=== PATIENT | male | born 1975 | race Hispanic/Latino ===

== ENCOUNTER 2016-12-16 15:07 | Emergency (ER) | payer MEDICAID, OTHER ==
[2016-12-16 15:11] VITALS: BMI 23.6
--- NOTE | 2016-12-16 15:26 | ED PDOC ---
Arrival/HPI - General Chief Complaint: Psychiatric Evaluation Time Seen by Provider: 12/16/16 15:17 Historian: Patient - History of Present Illness Narrative History of Present Illness (Text): 12/16/16 15:24 41yo male BIBA for psychiatric evaluation. Per the EMS pt told the Police that he is suicidal. However in ED patient denies SI. States he have a lot to live for and don't want to kill himself. he also denies HI. Denies any somatic complaint. Past Medical History - Provider Review Nursing Documentation Reviewed: Yes - Past History Past History: No Previous - Infectious Disease Hx of Infectious Diseases: None - Tetanus Immunization Tetanus Immunization: Unknown - Past Medical History Past Medical History: No Previous - Cardiac Hx Cardiac Disorders: (Pt denies any medical or surgical history) - Pulmonary Hx Respiratory Disorders: No (SMOKES CIGARETTES 1/2 PPD X 27 YRS) - Neurological Hx Neurological Disorder: No - HEENT Hx HEENT Disorder: No - Renal Hx Renal Disorder: No - Endocrine/Metabolic Hx Endocrine Disorders: Yes Hx Diabetes Mellitus Type 2: Yes - Hematological/Oncological Hx Blood Disorders: No - Integumentary Hx Dermatological Disorder: No (TATTOO TO LEFT LEG.) - Musculoskeletal/Rheumatological Hx Musculoskeletal Disorders: Yes Hx Falls: Yes - Gastrointestinal Hx Gastrointestinal Disorders: Yes Hx Gastritis: Yes - Genitourinary/Gynecological Hx Genitourinary Disorders: No - Psychiatric Hx Psychophysiologic Disorder: Yes (ETOH ABUSE.DRINKS DAILY BEERS,COCAINE ABUSE- SNIFFS, SMOKES 1/2 PPD X 27 YRS) Hx Depression: No Hx Emotional Abuse: No Hx Physical Abuse: No Hx Substance Use: Yes - Past Surgical History Past Surgical History: No Previous - Anesthesia Hx Anesthesia: No - Suicidal Assessment Feels Threatened In Home Enviroment: No Family/Social History - Physician Review Nursing Documentation Reviewed: Yes Family/Social History: Unknown Family HX Smoking Status: Current Some Days Smoker Hx Alcohol Use: Yes Frequency of alcohol use: Daily Hx Substance Use: Yes Substance used: heroin Hx Substance Use Treatment: No Allergies/Home Meds Allergies/Adverse Reactions: Allergies shellfish derived Allergy (Verified 12/16/16 15:11) ANAPHYLAXIS Home Medications: Home Meds Medication Instructions Recorded Confirmed No Known Home Med 12/16/16 12/16/16 Review of Systems - Physician Review All systems were reviewed & negative as marked: Yes - Review of Systems Constitutional: Normal Eyes: Normal ENT: Normal Respiratory: Normal Cardiovascular: Normal Gastrointestinal: Normal Genitourinary Male: Normal Musculoskeletal: Normal Skin: Normal Neurological: Normal Endocrine: Normal Hemo/Lymphatic: Normal Psychiatric: Suicidal Ideation Physical Exam Vital Signs Reviewed: Yes Vital Signs Temp Pulse Resp BP Pulse Ox 12/17/16 11:30 98 F 88 18 139/88 99 12/17/16 10:16 80 16 140/91 H 98 12/17/16 07:46 98 F 78 18 144/90 98 12/17/16 02:00 98.9 F 89 18 135/70 97 12/16/16 21:25 98.6 F 87 18 137/87 99 12/16/16 15:18 97.7 F 83 18 108/75 99 Temperature: Afebrile Blood Pressure: Normal Pulse: Regular Respiratory Rate: Normal Appearance: Positive for: Well-Appearing, Non-Toxic, Comfortable Pain Distress: None Mental Status: Positive for: Alert and Oriented X 3 - Systems Exam Head: Present: Atraumatic, Normocephalic Pupils: Present: PERRL Extroacular Muscles: Present: EOMI Conjunctiva: Present: Normal Mouth: Present: Moist Mucous Membranes Neck: Present: Normal Range of Motion Respiratory/Chest: Present: Clear to Auscultation, Good Air Exchange. No: Respiratory Distress, Accessory Muscle Use Cardiovascular: Present: Regular Rate and Rhythm, Normal S1, S2. No: Murmurs Abdomen: Present: Normal Bowel Sounds. No: Tenderness, Distention, Peritoneal Signs Back: Present: Normal Inspection Upper Extremity: Present: Normal Inspection. No: Cyanosis, Edema Lower Extremity: Present: Normal Inspection. No: Edema Neurological: Present: GCS=15, CN II-XII Intact, Speech Normal Skin: Present: Warm, Dry, Normal Color. No: Rashes Psychiatric: Present: Alert, Oriented x 3, Normal Insight, Normal Concentration Medical Decision Making ED Course and Treatment: 12/16/16 18:10 PT in ED for stated history. He was seen in ED by PES screener Tawanna. She states she spoke with pt's father, but patient will be re evaluated by another PES screener secondary to his alcohol level. Lab was reviewed and alcohol was 382. BS was 482. On further questioning pt notes history of type 2 Diabetes. States he was on Metformin, but have not taken it for days now. States he ran out and unable to afford the prescription. He was given insulin in ED. Will check FS. Repeat FS at 2225 was 141 Alcohol level was 382 He was medically cleared for psych evaluation. Was seen in ED by PES screener Emily. She was pt, states she DC with Dr. Alvarez and pt will be screened by [facility] screener. 12/17/16 01:34 Pt sleeping comfortably in ED. He is pending [facility] evaluation. Case was endorsed to Dr. Larson to f/u and dispo. - Lab Interpretations Lab Results: 12/16/16 15:50 12/16/16 15:50 Lab Results 12/17/16 07:27: POC Glucose (mg/dL) 182 H 12/16/16 22:27: POC Glucose (mg/dL) 141 H 12/16/16 18:51: POC Glucose (mg/dL) 232 H 12/16/16 15:50: Alcohol, Quantitative 382 H* 12/16/16 15:50: Salicylates < 1 L, Acetaminophen < 10.0 L 12/16/16 15:50: Urine Opiates Screen Negative, Urine Methadone Screen Negative, Ur Barbiturates Screen Negative, Ur Phencyclidine Scrn Negative, Ur Amphetamines Screen Negative, U Benzodiazepines Scrn Negative, U Oth Cocaine Metabols Negative, U Cannabinoids Screen Negative 12/16/16 15:50: Sodium 140, Potassium 3.7, Chloride 101, Carbon Dioxide 21, Anion Gap 22 H, BUN 13, Creatinine 0.8, Est GFR ( Amer) > 60, Est GFR ( Non-Af Amer) > 60, Random Glucose 481 H* D, Calcium 9.3, Total Bilirubin 0.5, AST 102 H, ALT 88 H, Alkaline Phosphatase 88, Total Protein 7.8, Albumin 4.6, Globulin 3.2, Albumin/Globulin Ratio 1.4 12/16/16 15:50: Urine Color Yellow, Urine Appearance Clear, Urine pH 6.5, Ur Specific [place] <= 1.005, Urine Protein Negative, Urine Glucose (UA) >=1000, Urine Ketones Negative, Urine Blood Negative, Urine Nitrate Negative, Urine Bilirubin Negative, Urine Urobilinogen 0.2, Ur Leukocyte Esterase Negative 12/16/16 15:50: WBC 7.7, RBC 4.78, Hgb 16.1, Hct 44.6, MCV 93.3, MCH 33.7, MCHC 36.1, RDW 12.2, Plt Count 216, MPV 10.2, Gran % 47.8 L, Lymph % (Auto) 45.6 H, [place] % (Auto) 4.2, Eos % (Auto) 1.2 L, Baso % (Auto) 1.2, Gran # 3.69, Lymph # 3.5 H, [place] # 0.3, Eos # 0.1, Baso # 0.09 - RAD Interpretation Radiology Orders: 12/16/16 22:06 CHEST PORTABLE [RAD] Stat - Medication Orders Current Medication Orders: Discontinued Medications Insulin Human Regular (Humulin R Med) 10 units SC ONCE STA PRN Reason: Protocol Stop: 12/16/16 16:33 Last Admin: 12/16/16 16:56 Dose: 10 units Lorazepam (Ativan) 2 mg PO ONCE ONE PRN Reason: Protocol Stop: 12/16/16 17:39 Last Admin: 12/16/16 18:12 Dose: 2 mg Lorazepam (Ativan) 1 mg IM ONCE ONE PRN Reason: Protocol Stop: 12/16/16 21:51 Last Admin: 12/16/16 22:08 Dose: 1 mg Lorazepam (Ativan) 2 mg PO ONCE ONE PRN Reason: Protocol Stop: 12/17/16 08:11 Last Admin: 12/17/16 08:19 Dose: 2 mg Disposition/Present on Arrival - Present on Arrival Any Indicators Present on Arrival: No History of DVT/PE: No History of Uncontrolled Diabetes: No Urinary Catheter: No History of Decub. Ulcer: No History Surgical Site Infection Following: None - Disposition Have Diagnosis and Disposition been Completed?: Yes Diagnosis: Alcohol intoxication Disposition: AGAINST MEDICAL ADVICE Condition: GOOD Discharge Instructions (ExitCare): Alcohol Intoxication (ED), Suicide Prevention for Adults (ED) Additional Instructions: PLEASE RETURN TO THE EMERGENCY DEPARTMENT FOR NEW OR WORSENING SYMPTOMS. RETURN RIGHT AWAY IF YOU CANNOT FOLLOW UP WITH YOUR PRIMARY CARE DOCTOR, CLINIC, OR SPECIALIST IN 1-2 DAYS. Referrals: [facility] Bret Diaz, [Non-Staff] - Follow up with primary Kim Chaparro MD [Staff Provider] - Follow up with primary
[2016-12-16 16:03] LABS: ADD MANUAL DIFF? NO
[2016-12-16 16:18] LABS: ALB/GLOB RATIO 1.4 (1.1-1.8); ALKALINE PHOSPHATASE 88 U/L (38-133); ALT/SGPT 88 U/L (7-56); AST/SGOT 102 U/L (15-59); BILIRUBIN,TOTAL 0.5 mg/dL (0.2-1.3); BLOOD UREA NITROGEN 13 mg/dL (7-21); CALCIUM 9.3 mg/dL (8.4-10.5); CARBON DIOXIDE 21 mmol/L (21-33); CHLORIDE 101 mmol/L (95-110); GFR AFRICAN-AMERICAN > 60; POTASSIUM 3.7 mmol/L (3.6-5.0); SODIUM 140 mmol/L (132-148); TOTAL PROTEIN 7.8 g/dL (5.8-8.3)
[2016-12-16 16:27] LABS: BASO # 0.09 K/mm3 (0.0-2.0); BASO % 1.2 % (0.0-3.0); EOS # 0.1 (0.0-0.7); EOS % 1.2 % (1.5-5.0); GRAN # 3.69 (1.4-6.5); GRAN % 47.8 % (50.0-68.0); HEMATOCRIT 44.6 % (42.0-52.0); LYMPH # 3.5 (1.2-3.4); LYMPH % 45.6 % (22.0-35.0); MEAN CELL VOLUME 93.3 fL (80.0-105.0); MEAN CORPUSCULAR HEMOGLOBIN 33.7 pg (25.0-35.0); MEAN CORPUSCULAR HGB CONC 36.1 g/dl (31.0-37.0); MEAN PLATELET VOLUME 10.2 fl (7.0-11.0); MONO # 0.3 (0.1-0.6); MONO % 4.2 % (1.0-6.0); PLATELET COUNT 216 10^3/uL (120.0-450.0); RED CELL DISTRIBUTION WIDTH 12.2 % (11.5-14.5); WHITE BLOOD COUNT 7.7 10^3/ul (4.5-11.0)
[2016-12-16 16:28] LABS: PH,URINE 6.5 (4.7-8.0); URINE APPEARANCE CLEAR (CLEAR); URINE BILIRUBIN NEGATIVE (NEGATIVE); URINE BLOOD NEGATIVE (NEGATIVE); URINE COLOR YELLOW (YELLOW); URINE GLUCOSE (UA) >=1000 mg/dL (NEGATIVE); URINE KETONE NEGATIVE (NEGATIVE); URINE LEUKOCYTE ESTERASE NEGATIVE Leu/uL (NEGATIVE); URINE PROTEIN NEGATIVE mg/dL (<30 mg/dL); URINE UROBILINOGEN 0.2 E.U./dL (<1 E.U./dL)
[2016-12-16 16:29] LABS: GLUCOSE,RANDOM 481 mg/dL (70-110)
[2016-12-16] MEDS ORDERED: Insulin Reg-MEDIUM-Coverage SC STA (16:32)
--- NOTE | 2016-12-17 07:16 | ED PDOC ---
Physical Exam Vital Signs Reviewed: Yes Vital Signs Temp Pulse Resp BP Pulse Ox 12/17/16 10:16 80 16 140/91 H 98 12/17/16 07:46 98 F 78 18 144/90 98 12/17/16 02:00 98.9 F 89 18 135/70 97 12/16/16 21:25 98.6 F 87 18 137/87 99 12/16/16 15:18 97.7 F 83 18 108/75 99 Temperature: Afebrile Blood Pressure: Normal Pulse: Regular Respiratory Rate: Normal Finger Stick Blood Glucose: 141 Medical Decision Making ED Course and Treatment: 12/17/16 07:15 Patient endorsed to me by Dr. Larson at 07:00. Pending [facility] evaluation. Patient brought in for suicidal ideation. 12/17/16 11:29 pt currently in no distress, denies complaints, states he has no suicidal or homicidal ideation Patient has no signs or symptoms of alcohol withdrawal. Patient is not hypotensive, patient is not tachycardic, patient is not tremulous. Patient is clinically sober. Patient refused psychiatric admission, and is being discharged AGAINST MEDICAL ADVICE by a psychiatrist. Follow-up has been arranged by PES worker. The patient refuses admission and wishes to leave the Emergency Department against my medical advice. Patient was told that admission to the hospital is necessary and a full explanation of the reasons why was given, and understood by patient. The risks of leaving were explained and include worsening of condition, and permanent disability and from an undiagnosed or untreated condition. The patient accepts these risks, and is in my judgment is competent and capable of understanding the clinical situation and my explanation of the risks of leaving. Patient was given the opportunity to ask questions and change mind. The patient was instructed regarding the best care for the present symptoms, and to follow up with Dr. Chaparro as soon as possible, or return to the Emergency Department at any time for continuing care. - Lab Interpretations Lab Results: 12/16/16 15:50 12/16/16 15:50 Lab Results 12/17/16 07:27: POC Glucose (mg/dL) 182 H 12/16/16 22:27: POC Glucose (mg/dL) 141 H 12/16/16 18:51: POC Glucose (mg/dL) 232 H 12/16/16 15:50: Alcohol, Quantitative 382 H* 12/16/16 15:50: Salicylates < 1 L, Acetaminophen < 10.0 L 12/16/16 15:50: Urine Opiates Screen Negative, Urine Methadone Screen Negative, Ur Barbiturates Screen Negative, Ur Phencyclidine Scrn Negative, Ur Amphetamines Screen Negative, U Benzodiazepines Scrn Negative, U Oth Cocaine Metabols Negative, U Cannabinoids Screen Negative 12/16/16 15:50: Sodium 140, Potassium 3.7, Chloride 101, Carbon Dioxide 21, Anion Gap 22 H, BUN 13, Creatinine 0.8, Est GFR ( Amer) > 60, Est GFR ( Non-Af Amer) > 60, Random Glucose 481 H* D, Calcium 9.3, Total Bilirubin 0.5, AST 102 H, ALT 88 H, Alkaline Phosphatase 88, Total Protein 7.8, Albumin 4.6, Globulin 3.2, Albumin/Globulin Ratio 1.4 12/16/16 15:50: Urine Color Yellow, Urine Appearance Clear, Urine pH 6.5, Ur Specific [place] <= 1.005, Urine Protein Negative, Urine Glucose (UA) >=1000, Urine Ketones Negative, Urine Blood Negative, Urine Nitrate Negative, Urine Bilirubin Negative, Urine Urobilinogen 0.2, Ur Leukocyte Esterase Negative 12/16/16 15:50: WBC 7.7, RBC 4.78, Hgb 16.1, Hct 44.6, MCV 93.3, MCH 33.7, MCHC 36.1, RDW 12.2, Plt Count 216, MPV 10.2, Gran % 47.8 L, Lymph % (Auto) 45.6 H, [place] % (Auto) 4.2, Eos % (Auto) 1.2 L, Baso % (Auto) 1.2, Gran # 3.69, Lymph # 3.5 H, [place] # 0.3, Eos # 0.1, Baso # 0.09 - RAD Interpretation Radiology Orders: 12/16/16 22:06 CHEST PORTABLE [RAD] Stat - Medication Orders Current Medication Orders: Discontinued Medications Insulin Human Regular (Humulin R Med) 10 units SC ONCE STA PRN Reason: Protocol Stop: 12/16/16 16:33 Last Admin: 12/16/16 16:56 Dose: 10 units Lorazepam (Ativan) 2 mg PO ONCE ONE PRN Reason: Protocol Stop: 12/16/16 17:39 Last Admin: 12/16/16 18:12 Dose: 2 mg Lorazepam (Ativan) 1 mg IM ONCE ONE PRN Reason: Protocol Stop: 12/16/16 21:51 Last Admin: 12/16/16 22:08 Dose: 1 mg Lorazepam (Ativan) 2 mg PO ONCE ONE PRN Reason: Protocol Stop: 12/17/16 08:11 Last Admin: 12/17/16 08:19 Dose: 2 mg Disposition/Present on Arrival - Present on Arrival Any Indicators Present on Arrival: No History of DVT/PE: No History of Uncontrolled Diabetes: No Urinary Catheter: No History of Decub. Ulcer: No History Surgical Site Infection Following: None - Disposition Have Diagnosis and Disposition been Completed?: Yes Diagnosis: Alcohol intoxication Disposition: AGAINST MEDICAL ADVICE Disposition Time: 11:34 Patient Plan: Discharge Patient Problems: Current Active Problems Problem Status Onset Alcohol intoxication Acute Hyperglycemia Acute Condition: GOOD Discharge Instructions (ExitCare): Alcohol Intoxication (ED), Suicide Prevention for Adults (ED) Additional Instructions: PLEASE RETURN TO THE EMERGENCY DEPARTMENT FOR NEW OR WORSENING SYMPTOMS. RETURN RIGHT AWAY IF YOU CANNOT FOLLOW UP WITH YOUR PRIMARY CARE DOCTOR, CLINIC, OR SPECIALIST IN 1-2 DAYS. [facility] [[facility] - Follow up with primary Kim Chaparro MD [Staff Provider] - Follow up with primary
[2016-12-17 07:47] VITALS: TEMP 98
--- NOTE | 2016-12-17 10:11 | RAD ---
HISTORY: admission COMPARISON: 02/27/2016 FINDINGS: LUNGS: No active pulmonary disease. PLEURA: No significant pleural effusion identified, no pneumothorax apparent. CARDIOVASCULAR: Normal. OSSEOUS STRUCTURES: No significant abnormalities. VISUALIZED UPPER ABDOMEN: Normal. OTHER FINDINGS: None. IMPRESSION: No active disease.
--- NOTE | 2016-12-17 11:03 | CARD ---
APPROVED REPORT EKG Measurement Heart [id number] <Conclusion> Normal sinus rhythm LAD V6 obscured by artifact
[2016-12-17 11:59] VITALS: BP 139/88; PULSE 88; RESP 18; O2SAT 99
== END 2016-12-17 12:00 | disposition left against medical advice (07) ==
LOC: ED 15:07
DX: F10.129 Alcohol abuse with intoxication, unspecified (principal); Y90.8 Blood alcohol level of 240 mg/100 ml or more
CPT/HCPCS: 71010; 80053; 81003; 82948; 85025; 90791; 93005; 96372; 99285; G0480; J2060

== ENCOUNTER 2017-01-27 16:31 | Observation (INO) | payer MEDICAID ==
[2017-01-27 16:38] VITALS: BMI 23.5
[2017-01-27] MEDS ORDERED: Sodium Chloride 0.9% 1,000 ML IV STA ×4 (17:02→21:21)
--- NOTE | 2017-01-27 17:13 | ED PDOC ---
Arrival/HPI - General Chief Complaint: Alcohol Ingestion Time Seen by Provider: 01/27/17 16:55 Historian: Patient, EMS - History of Present Illness Narrative History of Present Illness (Text): 01/27/17 17:00 Tj Goncalves is a 40 year old male, whose past medical history includes alcohol use, diabetes and ulcers, is brought in to the emergency department by EMS due to public intoxication. EMS notes they found him lying on the ground and the alcohol amount is unknown. Patient reports the last time he took his medication for diabetes was yesterday. Patient denies chest pain, shortness of breath, headache, fever, chills, cough, nausea, vomiting, diarrhea, abdominal pain, head trauma, or other complaints. Time/Duration: Prior to Arrival Symptom Onset: Sudden Symptom Course: Unchanged Modifying Factors (Text): None Context: Street Associated Symptoms (Text): None Past Medical History - Provider Review Nursing Documentation Reviewed: Yes - Past History Past History: No Previous - Infectious Disease Hx of Infectious Diseases: None - Tetanus Immunization Tetanus Immunization: Unknown - Past Medical History Past Medical History: No Previous - Cardiac Hx Cardiac Disorders: No - Pulmonary Hx Respiratory Disorders: No (SMOKES CIGARETTES 1/2 PPD X 27 YRS) - Neurological Hx Neurological Disorder: No - HEENT Hx HEENT Disorder: No - Renal Hx Renal Disorder: No - Endocrine/Metabolic Hx Endocrine Disorders: Yes Hx Diabetes Mellitus Type 2: Yes - Hematological/Oncological Hx Blood Disorders: No - Integumentary Hx Dermatological Disorder: No (TATTOO TO LEFT LEG.) - Musculoskeletal/Rheumatological Hx Musculoskeletal Disorders: Yes Hx Falls: Yes - Gastrointestinal Hx Gastrointestinal Disorders: Yes Hx Gastritis: Yes - Genitourinary/Gynecological Hx Genitourinary Disorders: No - Psychiatric Hx Psychophysiologic Disorder: Yes (ETOH ABUSE.DRINKS DAILY BEERS,COCAINE ABUSE- SNIFFS, SMOKES 1/2 PPD X 27 YRS) Hx Depression: No Hx Emotional Abuse: No Hx Physical Abuse: No Hx Substance Use: Yes - Past Surgical History Past Surgical History: No Previous - Anesthesia Hx Anesthesia: No - Suicidal Assessment Feels Threatened In Home Enviroment: No Family/Social History - Physician Review Nursing Documentation Reviewed: Yes Family/Social History: No Known Family HX Smoking Status: Current Some Days Smoker Hx Alcohol Use: Yes Frequency of alcohol use: Socially Hx Substance Use: Yes Substance used: heroin Hx Substance Use Treatment: No Allergies/Home Meds Allergies/Adverse Reactions: Allergies shellfish derived Allergy (Verified 01/27/17 16:47) ANAPHYLAXIS Home Medications: Home Meds Medication Instructions Recorded Confirmed No Known Home Med 12/16/16 01/27/17 Review of Systems - Physician Review All systems were reviewed & negative as marked: Yes - Review of Systems Constitutional: absent: Fevers Cardiovascular: absent: Chest Pain Gastrointestinal: absent: Diarrhea, Vomiting Physical Exam - Physical Exam Physical Exam Limitations: Intoxication Vital Signs Reviewed: Yes Vital Signs Temp Pulse Resp BP Pulse Ox 01/27/17 20:06 89 16 111/72 99 01/27/17 18:20 86 16 135/70 97 01/27/17 16:38 98.5 F 78 15 137/75 98 Temperature: Afebrile Blood Pressure: Normal Pulse: Regular Respiratory Rate: Normal Appearance: Positive for: Well-Appearing, Comfortable Pain Distress: None Mental Status: Positive for: Alert and Oriented X 3 - Systems Exam Head: Present: Atraumatic, Normocephalic Pupils: Present: PERRL Extroacular Muscles: Present: EOMI Conjunctiva: Present: Normal Mouth: Present: Moist Mucous Membranes Neck: Present: Normal Range of Motion Respiratory/Chest: Present: Clear to Auscultation, Good Air Exchange. No: Respiratory Distress, Accessory Muscle Use Cardiovascular: Present: Regular Rate and Rhythm, Normal S1, S2. No: Murmurs Abdomen: Present: Normal Bowel Sounds. No: Tenderness, Distention, Peritoneal Signs Upper Extremity: Present: Normal Inspection. No: Cyanosis, Edema Lower Extremity: Present: Normal Inspection. No: Edema Neurological: Present: GCS=15, CN II-XII Intact, Speech Normal Skin: Present: Warm, Dry, Normal Color. No: Rashes Psychiatric: Present: Alert, Intoxicated Medical Decision Making ED Course and Treatment: 01/27/17 17:00 Impression: 41 year old male brought in by EMS due to public intoxication. Differential Diagnosis included but are not limited to: ETOH abuse Plan: -- Chest X-ray -- Labs -- Urinalysis -- Sodium Chloride and Glucophage -- Reassess and disposition - Lab Interpretations Lab Results: 01/27/17 17:13 01/27/17 17:13 Lab Results 01/27/17 17:13: Alcohol, Quantitative 414 H* 01/27/17 17:13: Sodium 135, Chloride 96, Potassium 3.9, Carbon Dioxide 17 L, Anion Gap 26 H, BUN 12, Creatinine 0.8, Est GFR ( Amer) > 60, Est GFR ( Non-Af Amer) > 60, Random Glucose 695 H* D, Calcium 8.9, Total Bilirubin 0.5, AST 138 H, ALT 74 H, Alkaline Phosphatase 92, Total Protein 7.5, Albumin 4.3, Globulin 3.2, Albumin/Globulin Ratio 1.4, Lipase 193 01/27/17 17:13: pO2 166 H, VBG pH 7.27 L, VBG pCO2 39.0 L, VBG HCO3 17.9 L, VBG Total CO2 19.1 L, VBG O2 Sat (Calc) 100.1 H, VBG Base Excess -8.4 L, VBG Potassium 3.9, Sodium 136.0, Chloride 94.0 L, Glucose > 750 H*, Lactate 5.8 H*, FiO2 21.0, Venous Blood Potassium 3.9 01/27/17 17:13: WBC 7.3, RBC 4.63, Hgb 15.6, Hct 43.5, MCV 94.0, MCH 33.7, MCHC 35.9, RDW 12.5, Plt Count 303, MPV 9.8, Gran % 56.3, Lymph % (Auto) 34.4, [place] % (Auto) 5.4, Eos % (Auto) 2.5, Baso % (Auto) 1.4, Gran # 4.09, Lymph # 2.5, [place] # 0.4, Eos # 0.2, Baso # 0.10 01/27/17 16:44: POC Glucose (mg/dL) > 500 H* I have reviewed the lab results: Yes - RAD Interpretation Radiology Orders: 01/27/17 17:01 CHEST PORTABLE [RAD] Stat - Medication Orders Current Medication Orders: Discontinued Medications Sodium Chloride (Sodium Chloride 0.9%) 1,000 mls @ 999 mls/hr IV .Q1H1M STA Stop: 01/27/17 18:02 Last Admin: 01/27/17 17:15 Dose: 999 mls/hr Sodium Chloride (Sodium Chloride 0.9%) 1,000 mls @ 999 mls/hr IV .Q1H1M STA Stop: 01/27/17 18:02 Last Admin: 01/27/17 18:27 Dose: 999 mls/hr Sodium Chloride (Sodium Chloride 0.9%) 1,000 mls @ 999 mls/hr IV .Q1H1M STA Stop: 01/27/17 22:21 Last Admin: 01/27/17 21:47 Dose: 999 mls/hr Sodium Chloride (Sodium Chloride 0.9%) 1,000 mls @ 999 mls/hr IV .Q1H1M STA Stop: 01/27/17 22:21 Metformin HCl (Glucophage) 500 mg PO STAT STA Stop: 01/27/17 17:08 Last Admin: 01/27/17 17:19 Dose: 500 mg ED OBSERVATION Discharge: Yes Date of observation admission: 01/27/17 Time of observation admission: 17:00 - Observation admission statement Patient is being placed in observation because:: alcohol intoxication - Goals of Observation Goals of observation are:: sobriety - Progress Note Progress Note: 01/27/17 17:00 patient will be observed awaiting his sobriety. The following exams will be performed: -- Chest X-ray -- Labs -- Urinalysis -- Sodium Chloride and Glucophage 01/27/17 19:00 Patient is currently sleeping with no complaints. Waiting for sobriety. 01/27/17 21:00 Patient is still resting, waiting for sobriety. No complaints. 01/27/17 22:17 Pt is awake, alert, and ambulating with steady gait. Clinically sober, in no acute distress. Pt stable for d/c. - Scribe Statement The provider has reviewed the documentation as recorded by the Scribe 01/27/2017 Kelly Maridua Provider Scribe Attestation: All medical record entries made by the Scribe were at my direction and personally dictated by me. I have reviewed the chart and agree that the record accurately reflects my personal performance of the history, physical exam, medical decision making, and the department course for this patient. I have also personally directed, reviewed, and agree with the discharge instructions and disposition. Disposition/Present on Arrival - Present on Arrival Any Indicators Present on Arrival: No History of DVT/PE: No History of Uncontrolled Diabetes: No Urinary Catheter: No History of Decub. Ulcer: No History Surgical Site Infection Following: None - Disposition Have Diagnosis and Disposition been Completed?: Yes Diagnosis: Alcohol intoxication, Hyperglycemia Disposition: HOME/ ROUTINE Disposition Time: 22:22 Patient Problems: Current Active Problems Problem Status Onset Alcohol intoxication Acute Hyperglycemia Acute Condition: IMPROVED
[2017-01-27 17:46] LABS: BASO % 1.4 % (0.0-3.0); EOS # 0.2 (0.0-0.7); EOS % 2.5 % (1.5-5.0); GRAN # 4.09 (1.4-6.5); GRAN % 56.3 % (50.0-68.0); HEMOGLOBIN 15.6 gm/dL (14.0-18.0); LYMPH # 2.5 (1.2-3.4); LYMPH % 34.4 % (22.0-35.0); MEAN CORPUSCULAR HEMOGLOBIN 33.7 pg (25.0-35.0); MEAN CORPUSCULAR HGB CONC 35.9 g/dl (31.0-37.0); MEAN PLATELET VOLUME 9.8 fl (7.0-11.0); MONO # 0.4 (0.1-0.6); MONO % 5.4 % (1.0-6.0); PLATELET COUNT 303 10^3/uL (120.0-450.0); RBC 4.63 10^6/uL (3.5-6.1); RED CELL DISTRIBUTION WIDTH 12.5 % (11.5-14.5); WHITE BLOOD COUNT 7.3 10^3/ul (4.5-11.0)
[2017-01-27 17:47] LABS: ALB/GLOB RATIO 1.4 (1.1-1.8); ALBUMIN 4.3 g/dL (3.0-4.8); ALT/SGPT 74 U/L (7-56); AST/SGOT 138 U/L (15-59); BLOOD UREA NITROGEN 12 mg/dL (7-21); CALCIUM 8.9 mg/dL (8.4-10.5); GFR AFRICAN-AMERICAN > 60; GFR NON-AFRICAN AMERICAN > 60; LIPASE 193 U/L (23-300)
[2017-01-27 18:09] LABS: VENOUS BLOOD GAS BASE EXCESS -8.4 mmol/L (0.0-2.0); VENOUS BLOOD GAS PO2 166 mm/Hg (30-55); VENOUS BLOOD PH 7.27 (7.32-7.43)
[2017-01-27 18:26] VITALS: RESP 16
[2017-01-27 18:49] LABS: URINE BILIRUBIN NEGATIVE (NEGATIVE); URINE BLOOD NEGATIVE (NEGATIVE); URINE GLUCOSE (UA) >=1000 mg/dL (NEGATIVE); URINE LEUKOCYTE ESTERASE NEGATIVE Leu/uL (NEGATIVE); URINE NITRATE NEGATIVE (NEGATIVE); URINE PROTEIN NEGATIVE mg/dL (<30 mg/dL); URINE UROBILINOGEN 0.2 E.U./dL (<1 E.U./dL)
[2017-01-27 18:55] LABS: URINE APPEARANCE CLEAR (CLEAR); URINE COLOR YELLOW (YELLOW)
[2017-01-27 19:09] LABS: BARBITURATES, UR NEGATIVE (NEGATIVE); BENZODIAZEPINES, UR NEGATIVE (NEGATIVE); OPIATES, UR NEGATIVE (NEGATIVE); PHENCYCLIDINE, UR NEGATIVE (NEGATIVE)
[2017-01-27 20:07] VITALS: O2SAT 99
[2017-01-27 21:01] LABS: VENOUS BLOOD GAS BASE EXCESS -5.3 mmol/L (0.0-2.0); VENOUS BLOOD GAS PO2 107 mm/Hg (30-55); VENOUS BLOOD PH 7.29 (7.32-7.43)
[2017-01-27 21:16] LABS: BLOOD UREA NITROGEN 9 mg/dL (7-21); CALCIUM 7.9 mg/dL (8.4-10.5); GFR AFRICAN-AMERICAN > 60; GFR NON-AFRICAN AMERICAN > 60
[2017-01-27 22:45] VITALS: BP 127/65; PULSE 79; TEMP 97.6
== END 2017-01-27 22:27 | disposition home or self-care (01) ==
LOC: ED 16:31 → EROBSV 18:00
PROVIDERS: ADMIT Internal Medicine; ATTEND Internal Medicine
DX: E11.65 Type 2 diabetes mellitus with hyperglycemia (principal); F10.129 Alcohol abuse with intoxication, unspecified; Y90.7 Blood alcohol level of 200-239 mg/100 ml
CPT/HCPCS: 80053; 80320; 80324; 80345; 80346; 80349; 80353; 80358; 80361; 81003; 82803; 82948; 83690; 83992; 85025; 96360; 96361; 99284; G0378; J7040

== ENCOUNTER 2017-02-22 17:48 | Emergency (ER) | payer MEDICAID, OTHER ==
[2017-02-22 17:48] VITALS: BMI 23.5
[2017-02-22 18:24] VITALS: BP 133/76; PULSE 87; RESP 16; TEMP 98.5; O2SAT 98
--- NOTE | 2017-02-22 18:30 | ED PDOC ---
Arrival/HPI - General Chief Complaint: Alcohol Ingestion Time Seen by Provider: 02/22/17 18:15 Historian: Patient - History of Present Illness Narrative History of Present Illness (Text): 02/22/17 18:21 This 41 yo male with pmh alcohol abuse, is brought to this ED for alcohol intoxication. Patient stated he was in front of his house when he was force to tome to this ED by ambulance. Patient admits drinking alcohol early in the morning. Patient stated he feels well, and he would like to be discharge. Patient denies sob, cp, abdominal pain, n/v, dizziness, trauma, garrett, or abnormal gait. Time/Duration: Other (see hpi) Context: Home Past Medical History - Provider Review Nursing Documentation Reviewed: Yes - Past History Past History: No Previous - Infectious Disease Hx of Infectious Diseases: None - Tetanus Immunization Tetanus Immunization: Unknown - Past Medical History Past Medical History: No Previous - Cardiac Hx Cardiac Disorders: No - Pulmonary Hx Respiratory Disorders: No (SMOKES CIGARETTES 1/2 PPD X 27 YRS) - Neurological Hx Neurological Disorder: No - HEENT Hx HEENT Disorder: No - Renal Hx Renal Disorder: No - Endocrine/Metabolic Hx Endocrine Disorders: Yes Hx Diabetes Mellitus Type 2: Yes - Hematological/Oncological Hx Blood Disorders: No - Integumentary Hx Dermatological Disorder: No (TATTOO TO LEFT LEG.) - Musculoskeletal/Rheumatological Hx Musculoskeletal Disorders: Yes Hx Falls: Yes - Gastrointestinal Hx Gastrointestinal Disorders: Yes Hx Gastritis: Yes - Genitourinary/Gynecological Hx Genitourinary Disorders: No - Psychiatric Hx Psychophysiologic Disorder: Yes (ETOH ABUSE.DRINKS DAILY BEERS,COCAINE ABUSE- SNIFFS, SMOKES 1/2 PPD X 27 YRS) Hx Depression: No Hx Emotional Abuse: No Hx Physical Abuse: No Hx Substance Use: Yes - Past Surgical History Past Surgical History: No Previous - Anesthesia Hx Anesthesia: No - Suicidal Assessment Feels Threatened In Home Enviroment: No Family/Social History - Physician Review Nursing Documentation Reviewed: Yes Family/Social History: No Known Family HX Smoking Status: Current Some Days Smoker Hx Alcohol Use: Yes Hx Substance Use: Yes Substance used: heroin Hx Substance Use Treatment: No Allergies/Home Meds Allergies/Adverse Reactions: Allergies shellfish derived Allergy (Verified 01/27/17 16:47) ANAPHYLAXIS Home Medications: Home Meds Medication Instructions Recorded Confirmed No Known Home Med 12/16/16 01/27/17 Review of Systems - Review of Systems Constitutional: Normal. absent: Fatigue, Weight Change, Fevers, Night Sweats Eyes: Normal ENT: Normal Respiratory: Normal. absent: SOB, Cough, Sputum, Wheezing Cardiovascular: Normal. absent: Chest Pain, Palpitations Gastrointestinal: Normal. absent: Abdominal Pain, Nausea, Vomiting Genitourinary Male: Normal. absent: Dysuria, Frequency Musculoskeletal: Normal Skin: Normal Neurological: Normal. absent: Headache, Dizziness, Focal Weakness, Gait Changes , Speech Changes, Facial Droop, Disequilibrium, Seizure Endocrine: Normal Hemo/Lymphatic: Normal Psychiatric: Normal, Other (see hpi) Physical Exam Vital Signs Temp Pulse Resp BP Pulse Ox 02/22/17 18:05 98.5 F 87 16 133/76 98 Temperature: Afebrile Blood Pressure: Normal Pulse: Regular Respiratory Rate: Normal Appearance: Positive for: Well-Appearing, Non-Toxic, Comfortable Pain Distress: None Mental Status: Positive for: Alert and Oriented X 3 - Systems Exam Head: Present: Atraumatic, Normocephalic Pupils: Present: PERRL Extroacular Muscles: Present: EOMI Conjunctiva: Present: Normal Mouth: Present: Moist Mucous Membranes Neck: Present: Normal Range of Motion Respiratory/Chest: Present: Clear to Auscultation, Good Air Exchange. No: Respiratory Distress, Accessory Muscle Use Cardiovascular: Present: Regular Rate and Rhythm, Normal S1, S2. No: Murmurs Abdomen: Present: Normal Bowel Sounds. No: Tenderness, Distention, Peritoneal Signs Back: Present: Normal Inspection Upper Extremity: Present: Normal Inspection. No: Cyanosis, Edema Lower Extremity: Present: Normal Inspection. No: Edema Neurological: Present: GCS=15, CN II-XII Intact, Speech Normal, Motor Func Grossly Intact, Normal Sensory Function, Normal Cerebellar Funct, Gait Normal, Memory Normal, Other (Patient has a normal apeech. AAO x 3. Patient has a normal gait) Skin: Present: Warm, Dry, Normal Color. No: Rashes Psychiatric: Present: Alert, Oriented x 3, Normal Insight, Normal Concentration Medical Decision Making ED Course and Treatment: 02/22/17 18:32 Patient came for medical evaluation. Patient admits drinking alcohol this morning. Patient does not know why he was brought to the ED, since he is sober. Patient has a normal vital signs. Patient has a normal speech and gait. He appears in not acute distress. AAO x 3. Patient wishes to be discharge home. Re-evaluation. Patient feels better. Discussed results and plan with patient who expresses understanding. All questions answered and there is agreement with the plan to discharge home with instructions. Patient stable for discharge. Return if symptoms persist or worsen. Re-evaluation Time: 18:34 Reassessment Condition: Re-examined, Improved Disposition/Present on Arrival - Present on Arrival Any Indicators Present on Arrival: No History of DVT/PE: No History of Uncontrolled Diabetes: No Urinary Catheter: No History of Decub. Ulcer: No History Surgical Site Infection Following: None - Disposition Have Diagnosis and Disposition been Completed?: Yes Diagnosis: Alcohol abuse Disposition: HOME/ ROUTINE Disposition Time: 18:34 Patient Plan: Discharge Condition: GOOD Discharge Instructions (ExitCare): Abuse of Alcohol (ED) Additional Instructions: Call private doctor or clinic tomorrow for follow up visit. Quit alcohol and drink enough fluids. Return to emergency if symptoms arise. Referrals: PCP,NO [Primary Care Provider] - Follow up with primary [facility] [Outside] - Follow up with primary [employer] [facility] [Outside] - Follow up with primary [facility] [Outside] - Follow up with primary Forms: [employer] (Guyanese)
== END 2017-02-22 18:44 | disposition home or self-care (01) ==
LOC: ED 17:48
DX: F10.129 Alcohol abuse with intoxication, unspecified (principal)

== ENCOUNTER 2017-02-22 20:57 | Observation (INO) | payer OTHER ==
[2017-02-22 20:59] VITALS: BMI 24.3
[2017-02-22] MEDS ORDERED: TDAP Vaccine 0.5 mL Syr IM ONE (21:01)
--- NOTE | 2017-02-22 21:06 | ED PDOC ---
Arrival/HPI - General Chief Complaint: Alcohol Ingestion Time Seen by Provider: 02/22/17 20:58 - History of Present Illness Narrative History of Present Illness (Text): 02/22/17 21:03 Patient presents with slurring of speech and alcohol on breath. Admits to drinking throughout the day. Pt denies suicidal or homicidal ideations. Pt has superficial abrasions to his forehead and L. hand. Past Medical History - Provider Review Nursing Documentation Reviewed: Yes - Past History Past History: No Previous - Infectious Disease Hx of Infectious Diseases: None - Tetanus Immunization Tetanus Immunization: Unknown - Past Medical History Past Medical History: No Previous - Cardiac Hx Cardiac Disorders: No - Pulmonary Hx Respiratory Disorders: No (SMOKES CIGARETTES 1/2 PPD X 27 YRS) - Neurological Hx Neurological Disorder: No - HEENT Hx HEENT Disorder: No - Renal Hx Renal Disorder: No - Endocrine/Metabolic Hx Endocrine Disorders: Yes Hx Diabetes Mellitus Type 2: Yes - Hematological/Oncological Hx Blood Disorders: No - Integumentary Hx Dermatological Disorder: No (TATTOO TO LEFT LEG.) - Musculoskeletal/Rheumatological Hx Musculoskeletal Disorders: Yes Hx Falls: Yes - Gastrointestinal Hx Gastrointestinal Disorders: Yes Hx Gastritis: Yes - Genitourinary/Gynecological Hx Genitourinary Disorders: No - Psychiatric Hx Psychophysiologic Disorder: Yes (ETOH ABUSE.DRINKS DAILY BEERS,COCAINE ABUSE- SNIFFS, SMOKES 1/2 PPD X 27 YRS) Hx Depression: No Hx Emotional Abuse: No Hx Physical Abuse: No Hx Substance Use: Yes - Past Surgical History Past Surgical History: No Previous - Anesthesia Hx Anesthesia: No - Suicidal Assessment Feels Threatened In Home Enviroment: No Family/Social History Family/Social History: Unknown Family HX Smoking Status: Current Some Days Smoker Hx Alcohol Use: Yes Frequency of alcohol use: Daily Hx Substance Use: Yes Substance used: heroin Hx Substance Use Treatment: No Allergies/Home Meds Allergies/Adverse Reactions: Allergies shellfish derived Allergy (Verified 01/27/17 16:47) ANAPHYLAXIS Home Medications: Home Meds Medication Instructions Recorded Confirmed No Known Home Med 12/16/16 02/22/17 Review of Systems - Review of Systems Systems not reviewed;Unavailable: Intoxicated Physical Exam - Physical Exam Narrative Physical Exam (Text): 02/22/17 21:04 pt in no distress, no airway compromise, breathing without difficulty, good insp /exp effort. Forehead with superficial abrasions. L. hand with superficial abrasions. Following commands without difficulty. No nasal bone deformity or tenderness, no facial or jaw pain/swelling. No neck midline tenderness, thoracic and lumbar spine with no midline tenderness. Pt moving b/l upper and lower extremities without difficulty, 5/5 strength, with full active and passive ROM. Distal neurovasc fully intact. Abd soft/nt/ng, no hematomas, no peritoneal signs. Neg. pelvic rock. Pupils: Present: PERRL Extroacular Muscles: Present: EOMI Conjunctiva: Present: Normal Mouth: Present: Moist Mucous Membranes Neck: Present: Normal Range of Motion. No: MIDLINE TENDERNESS, Paraspinal Tenderness Respiratory/Chest: Present: Clear to Auscultation, Good Air Exchange. No: Respiratory Distress, Accessory Muscle Use Cardiovascular: Present: Regular Rate and Rhythm, Normal S1, S2. No: Murmurs Abdomen: Present: Normal Bowel Sounds. No: Tenderness, Distention, Peritoneal Signs, Rebound, Guarding Back: Present: Normal Inspection. No: Midline Tenderness, Paraspinal Tenderness Upper Extremity: Present: Normal Inspection. No: Cyanosis, Edema Lower Extremity: Present: Normal Inspection. No: Edema Neurological: Present: GCS=15, CN II-XII Intact Skin: Present: Warm, Dry, Normal Color. No: Rashes Lymphatic: Present: OX3, NI, NC Psychiatric: Present: Alert. No: Agitated, SI/HI Vital Signs Temp Pulse Resp BP Pulse Ox 02/23/17 04:24 91 H 18 119/82 100 02/23/17 00:17 84 17 129/77 96 02/22/17 22:26 98.8 F 100 H 18 119/80 98 02/22/17 21:10 98.7 F 106 H 18 124/71 97 Medical Decision Making - Lab Interpretations Lab Results: 02/22/17 20:40 02/22/17 20:40 Lab Results 02/22/17 20:40: Sodium 142, Chloride 104, Potassium 4.0, Carbon Dioxide 16 L, Anion Gap 26 H, BUN 10, Creatinine 0.6, Est GFR ( Amer) > 60, Est GFR ( Non-Af Amer) > 60, Random Glucose 400 H* D, Calcium 9.2, Total Bilirubin 0.3, AST 43, ALT 42, Alkaline Phosphatase 95, Total Protein 7.9, Albumin 4.5, Globulin 3.4, Albumin/Globulin Ratio 1.3 02/22/17 20:40: pO2 135 H, VBG pH 7.29 L, VBG pCO2 36.0 L, VBG HCO3 17.3 L, VBG Total CO2 18.4 L, VBG O2 Sat (Calc) 99.7 H, VBG Base Excess -8.4 L, VBG Potassium 4.0, Sodium 141.0, Chloride 102.0, Glucose 407 H* D, Lactate 3.7 H, FiO2 21.0, Venous Blood Potassium 4.0 02/22/17 20:40: WBC 7.5, RBC 4.92, Hgb 16.7, Hct 45.9, MCV 93.3, MCH 33.9, MCHC 36.4, RDW 12.1, Plt Count 344, MPV 9.6, Gran % 55.4, Lymph % (Auto) 37.9 H, Eagle % (Auto) 4.1, Eos % (Auto) 0.9 L, Baso % (Auto) 1.7, Gran # 4.17, Lymph # 2.9, Eagle # 0.3, Eos # 0.1, Baso # 0.13 I have reviewed the lab results: Yes - RAD Interpretation Radiology Orders: 02/22/17 20:59 HEAD W/O CONTRAST [CT] Stat - Medication Orders Current Medication Orders: Discontinued Medications Sodium Chloride (Sodium Chloride 0.9%) 2,000 mls @ 1,000 mls/hr IV .Q2H STA Stop: 02/23/17 00:30 Last Admin: 02/22/17 22:48 Dose: 1,000 mls/hr Sodium Chloride (Sodium Chloride 0.9%) 1,000 mls @ 1,000 mls/hr IV .Q1H STA Stop: 02/23/17 03:56 Last Admin: 02/23/17 03:21 Dose: 1,000 mls/hr Tetanus/Reduced Diphtheria/Acell Pertussis (Boostrix Vaccine Inj) 0.5 ml IM .ONCE ONE Stop: 02/22/17 21:02 Last Admin: 02/22/17 21:15 Dose: 0.5 ml ED OBSERVATION Discharge: Yes Date of observation admission: 02/22/17 Time of observation admission: 21:07 - Observation admission statement Patient is being placed in observation because:: alcohol intoxication - Goals of Observation Goals of observation are:: pending sobriety and observation - Progress Note Progress Note: 02/22/17 21:07 Patient resting comfortably, no complaints at this time. 02/22/2017 22:[address] FINDINGS: Limitations: Motion artifact - mild. Brain: Mild atrophy. No definite intracranial hemorrhage. No mass. No definite edema. Ventricles: No hydrocephalus. Bones/joints: No acute fracture. Soft tissues: Unremarkable. Vasculature: Minimal atherosclerotic disease of intracranial arteries. Sinuses: Moderate mucosal thickening/mild fluid of maxillary sinuses. Mastoid air cells: No mastoid effusion. Orbits: Unremarkable as visualized. IMPRESSION: 1. No definite intracranial hemorrhage. 2. Sinus disease. Dictated and Authenticated by: Bruno Mckeon MD 02/22/2017 22:[address] FINDINGS: Vertebrae: No acute fracture. Discs/spinal canal/neural foramina: No significant spinal canal stenosis. Soft tissues: Unremarkable. Sinuses: Mucosal thickening of visualized maxillary sinuses. Lung apices: Unremarkable as visualized. IMPRESSION: 1. No fracture. 2. Incidental/non-acute findings are described above. Dictated and Authenticated by: Bruno Mckeon MD 02/22/17 23:07 Patient is resting comfortably, no complaints at this time. 02/23/17 00:13 Glucose elevated, anion gap, CO2 16 fluids ordered previous medical records reviewed, pt has had a hx of similar episodes in the past 02/23/17 01:07 Patient resting comfortably, no complaints at this time. 02/23/17 03:10 Patient resting comfortably, no complaints at this time. 02/23/17 05:07 Patient resting comfortably, no complaints at this time. 02/23/17 05:55 glu decreased, gap smaller pt instructed to f/u outpatient for further w/u pt states he is aware of his hypergycemia. states he is supposed to take 1000mg of metformin daily, but has no prescriptions Rx and Rx card given Pt has been closely monitored throughout the stay in the ED. Currently pt is ANOx3 to person, place, and time. Has good insight and judgment. Denies suicidal or homicidal ideations. Pt has steady gait, ambulates without difficulty, not slurring speech. Pt able to tolerate PO without any difficulty. Patient denies any complaints at this time. Patient is not tremulous, not tachycardic, no signs or symptoms of alcohol withdrawal. Pt states he understands to return to the ER right away for new or worsening symptoms or for inability to f/u with PMD or specialist as instructed. Patient states that he fully agrees with and understands discharge instructions. States that he agrees with the plan and disposition. Verbalized and repeated discharge instructions and plan. I have given the patient opportunity to ask any additional questions. Disposition/Present on Arrival - Present on Arrival Any Indicators Present on Arrival: No History of DVT/PE: No History of Uncontrolled Diabetes: No Urinary Catheter: No History of Decub. Ulcer: No History Surgical Site Infection Following: None - Disposition Have Diagnosis and Disposition been Completed?: Yes Diagnosis: Alcohol intoxication, Hyperglycemia Disposition: HOME/ ROUTINE Disposition Time: 21:06 Patient Plan: Discharge Condition: GOOD
[2017-02-22 22:27] VITALS: TEMP 98.8
[2017-02-22] MEDS ORDERED: Sodium Chloride 0.9% 2,000 ML IV STA (22:31)
--- NOTE | 2017-02-22 22:41 | CT ---
EXAM: CT Head Without Intravenous Contrast CLINICAL HISTORY: 41 years old, male; Injury or trauma; Fall; Initial encounter; Blunt trauma (contusions or hematomas); Consciousness not specified; Additional info: ETOH, fall TECHNIQUE: Axial computed tomography images of the head/brain without intravenous contrast. All CT scans at this facility use one or more dose reduction techniques, viz.: automated exposure control; ma/kV adjustment per patient size (including targeted exams where dose is matched to indication; i.e. head); or iterative reconstruction technique. COMPARISON: No relevant prior studies available. FINDINGS: Limitations: Motion artifact - mild. Brain: Mild atrophy. No definite intracranial hemorrhage. No mass. No definite edema. Ventricles: No hydrocephalus. Bones/joints: No acute fracture. Soft tissues: Unremarkable. Vasculature: Minimal atherosclerotic disease of intracranial arteries. Sinuses: Moderate mucosal thickening/mild fluid of maxillary sinuses. Mastoid air cells: No mastoid effusion. Orbits: Unremarkable as visualized. IMPRESSION: 1. No definite intracranial hemorrhage. 2. Sinus disease.
--- NOTE | 2017-02-22 22:44 | CT ---
EXAM: CT Cervical Spine Without Intravenous Contrast CLINICAL HISTORY: 41 years old, male; Injury or trauma; Fall; Initial encounter; Blunt trauma; Additional info: Fall, ETOH TECHNIQUE: Axial computed tomography images of the cervical spine without intravenous contrast. All CT scans at this facility use one or more dose reduction techniques, viz.: automated exposure control; ma/kV adjustment per patient size (including targeted exams where dose is matched to indication; i.e. head); or iterative reconstruction technique. Coronal and sagittal reformatted images were created and reviewed. COMPARISON: No relevant prior studies available. FINDINGS: Vertebrae: No acute fracture. Discs/spinal canal/neural foramina: No significant spinal canal stenosis. Soft tissues: Unremarkable. Sinuses: Mucosal thickening of visualized maxillary sinuses. Lung apices: Unremarkable as visualized. IMPRESSION: 1. No fracture. 2. Incidental/non-acute findings are described above.
[2017-02-22 22:56] LABS: VENOUS BLOOD GAS BASE EXCESS -8.4 mmol/L (0.0-2.0); VENOUS BLOOD PH 7.29 (7.32-7.43)
[2017-02-22 22:58] LABS: BASO # 0.13 K/mm3 (0.0-2.0); BASO % 1.7 % (0.0-3.0); EOS # 0.1 (0.0-0.7); EOS % 0.9 % (1.5-5.0); GRAN # 4.17 (1.4-6.5); GRAN % 55.4 % (50.0-68.0); HEMATOCRIT 45.9 % (42.0-52.0); LYMPH # 2.9 (1.2-3.4); LYMPH % 37.9 % (22.0-35.0); MEAN CELL VOLUME 93.3 fl (80.0-105.0); MEAN CORPUSCULAR HEMOGLOBIN 33.9 pg (25.0-35.0); MEAN CORPUSCULAR HGB CONC 36.4 g/dl (31.0-37.0); MEAN PLATELET VOLUME 9.6 fl (7.0-11.0); MONO # 0.3 (0.1-0.6); MONO % 4.1 % (1.0-6.0); RED CELL DISTRIBUTION WIDTH 12.1 % (11.5-14.5); WHITE BLOOD COUNT 7.5 10^3/ul (4.5-11.0)
[2017-02-22 23:04] LABS: ALB/GLOB RATIO 1.3 (1.1-1.8); ALKALINE PHOSPHATASE 95 U/L (38-133); ALT/SGPT 42 U/L (7-56); AST/SGOT 43 U/L (15-59); BILIRUBIN,TOTAL 0.3 mg/dL (0.2-1.3); BLOOD UREA NITROGEN 10 mg/dL (7-21); CALCIUM 9.2 mg/dL (8.4-10.5); CARBON DIOXIDE 16 mmol/L (21-33); CHLORIDE 104 mmol/L (98-107); GFR AFRICAN-AMERICAN > 60; SODIUM 142 mmol/L (132-148); TOTAL PROTEIN 7.9 g/dL (5.8-8.3)
[2017-02-22 23:06] LABS: GLUCOSE,RANDOM 400 mg/dL (70-110)
[2017-02-23] MEDS ORDERED: Sodium Chloride 0.9% 1,000 ML IV STA (02:57)
[2017-02-23 03:43] LABS: VENOUS BLOOD GAS BASE EXCESS -7.7 mmol/L (0.0-2.0); VENOUS BLOOD PH 7.25 (7.32-7.43)
[2017-02-23 04:25] VITALS: BP 119/82; PULSE 91; RESP 18; O2SAT 100
[2017-02-23 04:46] LABS: ALB/GLOB RATIO 1.2 (1.1-1.8); ALKALINE PHOSPHATASE 71 U/L (38-133); ALT/SGPT 37 U/L (7-56); AST/SGOT 50 U/L (15-59); BILIRUBIN,TOTAL 0.1 mg/dL (0.2-1.3); BLOOD UREA NITROGEN 8 mg/dL (7-21); CALCIUM 7.5 mg/dL (8.4-10.5); CARBON DIOXIDE 17 mmol/L (21-33); CHLORIDE 114 mmol/L (98-107); GFR AFRICAN-AMERICAN > 60; GLUCOSE,RANDOM 218 mg/dL (70-110); POTASSIUM 3.8 mmol/L (3.6-5.0); SODIUM 144 mmol/L (132-148); TOTAL PROTEIN 6.2 g/dL (5.8-8.3)
--- NOTE | 2017-02-23 10:23 | RAD ---
PROCEDURE: Left Hand Radiographs. HISTORY: fall COMPARISON: None. FINDINGS: BONES: Normal. No fracture. JOINTS: Normal. No osteoarthritic changes. SOFT TISSUES: Normal. OTHER FINDINGS: None. IMPRESSION: Normal left hand radiographs.
== END 2017-02-23 05:56 | disposition home or self-care (01) ==
LOC: ED 20:57 → EROBSV 21:00
PROVIDERS: ADMIT Emergency Medicine; ATTEND Emergency Medicine
DX: F10.129 Alcohol abuse with intoxication, unspecified (principal); E11.65 Type 2 diabetes mellitus with hyperglycemia; Z23 Encounter for immunization; F17.210 Nicotine dependence, cigarettes, uncomplicated
CPT/HCPCS: 36415; 70450; 72125; 73130; 80053; 82803; 82948; 85025; 90471; 90715; 96360; 96361; 99284; G0378; J7040

== ENCOUNTER 2017-02-24 10:27 | Emergency (ER) | payer OTHER ==
[2017-02-24 10:28] VITALS: BMI 24.3
[2017-02-24] MEDS ORDERED: Sodium Chloride 0.9% 1,000 ML IV STA ×3 (10:42→12:28)
[2017-02-24 10:44] VITALS: TEMP 98
[2017-02-24 11:07] LABS: BASO # 0.18 K/mm3 (0.0-2.0); BASO % 1.9 % (0.0-3.0); EOS # 0.1 (0.0-0.7); EOS % 1.3 % (1.5-5.0); GRAN # 5.44 (1.4-6.5); GRAN % 56.6 % (50.0-68.0); HEMATOCRIT 42.3 % (42.0-52.0); LYMPH # 3.2 (1.2-3.4); LYMPH % 33.2 % (22.0-35.0); MEAN CELL VOLUME 94.2 fl (80.0-105.0); MEAN CORPUSCULAR HEMOGLOBIN 33.9 pg (25.0-35.0); MEAN CORPUSCULAR HGB CONC 35.9 g/dl (31.0-37.0); MEAN PLATELET VOLUME 9.1 fl (7.0-11.0); MONO # 0.7 (0.1-0.6); RED CELL DISTRIBUTION WIDTH 12.3 % (11.5-14.5); WHITE BLOOD COUNT 9.6 10^3/ul (4.5-11.0)
--- NOTE | 2017-02-24 11:14 | ED PDOC ---
Arrival/HPI - General Historian: Patient, EMS <Melisa Soriano - Last Filed: 02/24/17 19:28> <Dakota Horta - Last Filed: 02/27/17 08:58> - General Chief Complaint: Alcohol Ingestion Time Seen by Provider: 02/24/17 10:29 - History of Present Illness Narrative History of Present Illness (Text): 02/24/17 11:03 41-year-old male presents today with alcohol use and vomiting. Per EMS the patient was found sleeping in the diner. pt denies any pain. (Melisa Soriano ) Past Medical History - Provider Review Nursing Documentation Reviewed: Yes - Travel History Have you recently traveled outside [place] w/in the past 3 mons?: No - Past History Past History: No Previous - Infectious Disease Hx of Infectious Diseases: None - Tetanus Immunization Tetanus Immunization: Unknown - Past Medical History Past Medical History: No Previous - Cardiac Hx Cardiac Disorders: No - Pulmonary Hx Respiratory Disorders: No (SMOKES CIGARETTES 1/2 PPD X 27 YRS) - Neurological Hx Neurological Disorder: No - HEENT Hx HEENT Disorder: No - Renal Hx Renal Disorder: No - Endocrine/Metabolic Hx Endocrine Disorders: Yes Hx Diabetes Mellitus Type 2: Yes - Hematological/Oncological Hx Blood Disorders: No - Integumentary Hx Dermatological Disorder: No (TATTOO TO LEFT LEG.) - Musculoskeletal/Rheumatological Hx Musculoskeletal Disorders: Yes Hx Falls: Yes - Gastrointestinal Hx Gastrointestinal Disorders: Yes Hx Gastritis: Yes - Genitourinary/Gynecological Hx Genitourinary Disorders: No - Psychiatric Hx Psychophysiologic Disorder: Yes (ETOH ABUSE.DRINKS DAILY BEERS,COCAINE ABUSE- SNIFFS, SMOKES 1/2 PPD X 27 YRS) Hx Depression: No Hx Emotional Abuse: No Hx Physical Abuse: No Hx Substance Use: Yes - Past Surgical History Past Surgical History: No Previous - Anesthesia Hx Anesthesia: No - Suicidal Assessment Feels Threatened In Home Enviroment: No <Melisa Soriano - Last Filed: 02/24/17 19:28> Family/Social History - Physician Review Nursing Documentation Reviewed: Yes Family/Social History: Unknown Family HX Smoking Status: Current Some Days Smoker Hx Alcohol Use: Yes (alcohol abuse) Hx Substance Use: Yes Substance used: heroin Hx Substance Use Treatment: No <Melisa Soriano - Last Filed: 02/24/17 19:28> Allergies/Home Meds <Melisa Soriano Radha - Last Filed: 02/24/17 19:28> <Dakota Horta - Last Filed: 02/27/17 08:58> Allergies/Adverse Reactions: Allergies shellfish derived Allergy (Verified 02/23/17 07:01) ANAPHYLAXIS Review of Systems - Review of Systems Systems not reviewed;Unavailable: Intoxicated Cardiovascular: absent: Chest Pain Gastrointestinal: Vomiting. absent: Abdominal Pain <Og Sorianoroxana Garcia - Last Filed: 02/24/17 19:28> Physical Exam Vital Signs Reviewed: Yes Temperature: Afebrile Blood Pressure: Normal Pulse: Tachycardic Respiratory Rate: Normal Appearance: Positive for: Well-Appearing, Non-Toxic, Comfortable Pain Distress: None Mental Status: Positive for: other (intoxicated) Finger Stick Blood Glucose: 283 - Systems Exam Head: Present: Atraumatic Mouth: Present: Moist Mucous Membranes Neck: Present: Normal Range of Motion Respiratory/Chest: Present: Clear to Auscultation Cardiovascular: Present: Regular Rate and Rhythm Abdomen: No: Tenderness, Distention, Rebound, Guarding Back: Present: Normal Inspection Skin: Present: Warm, Dry Psychiatric: Present: Alert, Intoxicated <Melisa Soriano Radha - Last Filed: 02/24/17 19:28> Medical Decision Making <Og Sorianoroxana Garcia - Last Filed: 02/24/17 19:28> <Dakota Horta - Last Filed: 02/27/17 08:58> ED Course and Treatment: 02/24/17 11:16 41yr old male presents AMS. with smell of ETOH on breath. with vomiting. after being found sleeping at a diner. cbc wnl cmp: glucose; 319 lipase: wnl etoh: 457 ekg; normal sinus rhythm at [address] elevations cxr; wnl lactate 5.3. will repeat due to delay in order. repeat lactate; 4.2 fingerstick after 1L NS; 228 additional 2L NS given IV bolus. pt reassessment; alert; Hungry. pt pulled out his IV, becoming aggressive; unwilling to remain in the hospital. only 1 1/2 L NS given prior to IV being pulled out. ativan 2MG IM ordered. repeat lactate after 2L; 3.9 repeat alcohol; 228 pt does not want to stay in hospital requesting repeat alcohol level because he claims he is sober and wants to leave. pt ambulating with steady gait. no distress. vitals stable. repeat alcohol; 191 repeat cbc; wnl repeat cmp; no anion gap. pt non toxic well appearing; no distress. stable vitals. resting comfortably in er. 02/24/17 19:29 case signed out to dr horta pending sobriety and further evaluation of elevated lactate. (Melisa Soriano) 02/24/17 21:29 Leaving Against Medical Advice (AMA): The patient is choosing to leave against medical advice. I have personally explained to the patient that choosing to do so may result in permanent bodily harm or . I have discussed at great length that without further evaluation and monitoring there may be unforeseen circumstances and/or deterioration causing permanent bodily harm or as a result of their choice. The patient is alert, oriented, and shows the mental capacity to make clear decisions regarding the patients health care at this time. The patient continues to wish to leave against medical advice. In light of the patients decision to leave against medical advice, patient is aware of the importance to following up as instructed. The patient has been advised that they should return to the emergency room immediately if they change their mind at any time, or if their condition begins to change or worsen in any way.. (Dakota Horta) - Lab Interpretations Lab Results: 02/24/17 17:00 02/24/17 17:00 Lab Results 02/24/17 17:00: Sodium 143, Potassium 3.7, Chloride 108 H, Carbon Dioxide 22, Anion Gap 17, BUN 8, Creatinine 0.7, Est GFR ( Amer) > 60, Est GFR (Non- Af Amer) > 60, Random Glucose 237 H, Calcium 8.7, Total Bilirubin 0.2, AST 71 H , ALT 46, Alkaline Phosphatase 86, Total Protein 7.4, Albumin 4.2, Globulin 3.2 , Albumin/Globulin Ratio 1.3 02/24/17 17:00: Alcohol, Quantitative 191 H 02/24/17 17:00: WBC 7.0 D, RBC 4.56, Hgb 15.2, Hct 43.4, MCV 95.2, MCH 33.3, MCHC 35.0, RDW 12.4, Plt Count 331, MPV 9.4, Gran % 50.5, Lymph % (Auto) 41.4 H , [place] % (Auto) 4.3, Eos % (Auto) 1.7, Baso % (Auto) 2.1, Gran # 3.55, Lymph # 2.9, [place] # 0.3, Eos # 0.1, Baso # 0.15 02/24/17 15:30: pO2 77 H, VBG pH 7.28 L, VBG pCO2 47.0, VBG HCO3 22.1, VBG Total CO2 23.5, VBG O2 Sat (Calc) 96.3 H, VBG Base Excess -4.8 L, VBG Potassium 3.8, Glucose 280 H, Lactate 3.9 H, FiO2 21.0, Sodium 146.0, Chloride 108.0 H, Venous Blood Potassium 3.8 02/24/17 14:00: Alcohol, Quantitative 280 H 02/24/17 13:05: POC Glucose (mg/dL) 228 H 02/24/17 11:48: pO2 201 H, VBG pH 7.29 L, VBG pCO2 38.0 L, VBG HCO3 18.3 L, VBG Total CO2 19.5 L, VBG O2 Sat (Calc) 100.0 H, VBG Base Excess -7.7 L, VBG Potassium 3.5 L, Glucose 296 H, Lactate 4.2 H*, FiO2 21.0, Sodium 144.0, Chloride 109.0 H, Venous Blood Potassium 3.5 L 02/24/17 11:33: pO2 231 H, VBG pH 7.33, VBG pCO2 36.0 L, VBG HCO3 19.0 L, VBG Total CO2 20.1 L, VBG O2 Sat (Calc) 99.9 H, VBG Base Excess -6.2 L, VBG Potassium 4.1, Glucose 339 H, Lactate 5.3 H*, FiO2 21.0, Sodium 139.0, Chloride 103.0, Venous Blood Potassium 4.1 02/24/17 11:00: WBC 9.6 D, RBC 4.49, Hgb 15.2, Hct 42.3, MCV 94.2, MCH 33.9, MCHC 35.9, RDW 12.3, Plt Count 308, MPV 9.1, Gran % 56.6, Lymph % (Auto) 33.2, [place] % (Auto) 7.0 H, Eos % (Auto) 1.3 L, Baso % (Auto) 1.9, Gran # 5.44, Lymph # 3.2, [place] # 0.7 H, Eos # 0.1, Baso # 0.18 02/24/17 11:00: Alcohol, Quantitative 457 H* 02/24/17 11:00: Sodium 141, Potassium 3.8, Chloride 105, Carbon Dioxide 16 L, Anion Gap 24 H, BUN 8, Creatinine 0.5, Est GFR ( Amer) > 60, Est GFR (Non -Af Amer) > 60, Random Glucose 319 H* D, Calcium 8.7, Total Bilirubin 0.3, AST 68 H, ALT 45, Alkaline Phosphatase 89, Total Protein 7.1, Albumin 4.1, Globulin 3.0, Albumin/Globulin Ratio 1.4, Lipase 110 - RAD Interpretation Radiology Orders: 02/24/17 10:42 CHEST PORTABLE [RAD] Stat - Medication Orders Current Medication Orders: Discontinued Medications Sodium Chloride (Sodium Chloride 0.9%) 1,000 mls @ 999 mls/hr IV .Q1H1M STA Stop: 02/24/17 11:42 Last Admin: 02/24/17 10:53 Dose: 999 mls/hr Sodium Chloride (Sodium Chloride 0.9%) 1,000 mls @ 999 mls/hr IV .Q1H1M STA Stop: 02/24/17 13:27 Last Admin: 02/24/17 13:12 Dose: 999 mls/hr Sodium Chloride (Sodium Chloride 0.9%) 1,000 mls @ 999 mls/hr IV .Q1H1M STA Stop: 02/24/17 13:28 Last Admin: 02/24/17 13:03 Dose: 999 mls/hr Sodium Chloride (Sodium Chloride 0.9%) 2,000 mls @ 999 mls/hr IV .Q2H1M STA Stop: 02/24/17 18:30 Last Admin: 02/24/17 16:30 Dose: 999 mls/hr Lorazepam (Ativan) 2 mg IM ONCE ONE PRN Reason: Protocol Stop: 02/24/17 13:44 Last Admin: 02/24/17 14:02 Dose: 2 mg Ondansetron HCl (Zofran Inj) 4 mg IVP STAT STA Stop: 02/24/17 10:43 Last Admin: 02/24/17 10:52 Dose: 4 mg - PA / ROLL CLAMP OPERATOR / Resident Statement / has reviewed & agrees with the documentation as recorded. / has examined the patient and agrees with the treatment plan. <Dakota Horta - Last Filed: 02/27/17 08:58> Disposition/Present on Arrival - Present on Arrival Any Indicators Present on Arrival: No History of DVT/PE: No History of Uncontrolled Diabetes: No Urinary Catheter: No History of Decub. Ulcer: No History Surgical Site Infection Following: None <Melisa Soriano - Last Filed: 02/24/17 19:28> - Present on Arrival Any Indicators Present on Arrival: No - Disposition Have Diagnosis and Disposition been Completed?: Yes Disposition Time: 21:30 <Dakota Horta - Last Filed: 02/27/17 08:58> - Disposition Diagnosis: Alcohol intoxication Disposition: HOME/ ROUTINE Condition: UNKNOWN Referrals: PCP,NO [Primary Care Provider] - Follow up with primary Forms: [employer] ([place])
[2017-02-24 11:16] LABS: ALB/GLOB RATIO 1.4 (1.1-1.8); ALKALINE PHOSPHATASE 89 U/L (38-133); ALT/SGPT 45 U/L (7-56); AST/SGOT 68 U/L (15-59); BILIRUBIN,TOTAL 0.3 mg/dL (0.2-1.3); BLOOD UREA NITROGEN 8 mg/dL (7-21); CALCIUM 8.7 mg/dL (8.4-10.5); CARBON DIOXIDE 16 mmol/L (21-33); CHLORIDE 105 mmol/L (98-107); GFR AFRICAN-AMERICAN > 60; LIPASE 110 U/L (23-300); POTASSIUM 3.8 mmol/L (3.6-5.0); SODIUM 141 mmol/L (132-148); TOTAL PROTEIN 7.1 g/dL (5.8-8.3)
[2017-02-24 11:24] LABS: GLUCOSE,RANDOM 319 mg/dL (70-110)
[2017-02-24 11:39] LABS: VENOUS BLOOD GAS BASE EXCESS -6.2 mmol/L (0.0-2.0); VENOUS BLOOD PH 7.33 (7.32-7.43)
--- NOTE | 2017-02-24 12:03 | RAD ---
HISTORY: alcohol intoxication/vomiting COMPARISON: 12/16/2016 FINDINGS: LUNGS: No active pulmonary disease. PLEURA: No significant pleural effusion identified, no pneumothorax apparent. CARDIOVASCULAR: Normal. OSSEOUS STRUCTURES: No significant abnormalities. VISUALIZED UPPER ABDOMEN: Normal. OTHER FINDINGS: None. IMPRESSION: No active disease.
[2017-02-24 12:21] LABS: VENOUS BLOOD GAS BASE EXCESS -7.7 mmol/L (0.0-2.0); VENOUS BLOOD PH 7.29 (7.32-7.43)
[2017-02-24 14:18] VITALS: RESP 18
[2017-02-24 16:03] LABS: VENOUS BLOOD GAS BASE EXCESS -4.8 mmol/L (0.0-2.0); VENOUS BLOOD PH 7.28 (7.32-7.43)
[2017-02-24] MEDS ORDERED: DiphenhydrAMINE 50 mg/ml Inj IM STA (16:17)
[2017-02-24] MEDS ORDERED: Sodium Chloride 0.9% 2,000 ML IV STA (16:30)
[2017-02-24 17:46] LABS: BASO # 0.15 K/mm3 (0.0-2.0); BASO % 2.1 % (0.0-3.0); EOS # 0.1 (0.0-0.7); EOS % 1.7 % (1.5-5.0); GRAN # 3.55 (1.4-6.5); GRAN % 50.5 % (50.0-68.0); HEMATOCRIT 43.4 % (42.0-52.0); LYMPH # 2.9 (1.2-3.4); LYMPH % 41.4 % (22.0-35.0); MEAN CELL VOLUME 95.2 fl (80.0-105.0); MEAN CORPUSCULAR HEMOGLOBIN 33.3 pg (25.0-35.0); MEAN PLATELET VOLUME 9.4 fl (7.0-11.0); MONO # 0.3 (0.1-0.6); MONO % 4.3 % (1.0-6.0); RED CELL DISTRIBUTION WIDTH 12.4 % (11.5-14.5)
[2017-02-24 18:03] LABS: ALB/GLOB RATIO 1.3 (1.1-1.8); ALKALINE PHOSPHATASE 86 U/L (38-133); ALT/SGPT 46 U/L (7-56); AST/SGOT 71 U/L (15-59); BILIRUBIN,TOTAL 0.2 mg/dL (0.2-1.3); BLOOD UREA NITROGEN 8 mg/dL (7-21); CALCIUM 8.7 mg/dL (8.4-10.5); CARBON DIOXIDE 22 mmol/L (21-33); CHLORIDE 108 mmol/L (98-107); GFR AFRICAN-AMERICAN > 60; GLUCOSE,RANDOM 237 mg/dL (70-110); POTASSIUM 3.7 mmol/L (3.6-5.0); SODIUM 143 mmol/L (132-148); TOTAL PROTEIN 7.4 g/dL (5.8-8.3)
[2017-02-24 21:32] VITALS: BP 136/74; PULSE 84; O2SAT 100
--- NOTE | 2017-02-25 10:13 | CARD ---
APPROVED REPORT EKG Measurement Heart [id number] <Conclusion> Normal sinus rhythm Normal ECG
== END 2017-02-24 21:32 | disposition home or self-care (01) ==
LOC: ED 10:27
DX: F10.129 Alcohol abuse with intoxication, unspecified (principal); Y90.8 Blood alcohol level of 240 mg/100 ml or more
CPT/HCPCS: 71010; 80053; 80320; 82803; 82948; 83690; 85025; 93005; 96361; 96372; 96374; 99285; J2060; J2405; J7040

== ENCOUNTER 2017-07-20 16:14 | Emergency (ER) | payer MEDICAID, OTHER ==
[2017-07-20 16:15] VITALS: BMI 24.3
[2017-07-20 16:43] VITALS: BP 132/82; PULSE 100; RESP 17; TEMP 98.8; O2SAT 96
[2017-07-20] MEDS ORDERED: Amoxicillin-Clav 875-125 mg Tab PO STA (17:21)
--- NOTE | 2017-07-20 17:25 | ED PDOC ---
Arrival/HPI - General Chief Complaint: Headache Time Seen by Provider: 07/20/17 17:00 Historian: Patient - History of Present Illness Narrative History of Present Illness (Text): 07/20/17 17:22 41yo male with PMHx of Diabetes present with one week history of left forehead pressure pain and sinus pressure. He denies rhinorrhea, nasal congestion, fever, chills, visual changes, nausea, vomiting. He also request a prescription of Metformin. States he ran out of his medication for a while now and have not seen his PMD. States his FS was in the 300's today. He denies nausea, vomiting, polyuria/phagia/dipsia, abdominal pain. Past Medical History - Provider Review Nursing Documentation Reviewed: Yes - Past History Past History: No Previous - Infectious Disease Hx of Infectious Diseases: None - Tetanus Immunization Tetanus Immunization: Unknown - Past Medical History Past Medical History: No Previous - Cardiac Hx Cardiac Disorders: No Hx Hypertension: No - Pulmonary Hx Respiratory Disorders: No (SMOKES CIGARETTES 1/2 PPD X 27 YRS) - Neurological Hx Seizures: No - HEENT Hx HEENT Disorder: No - Renal Hx Renal Disorder: No - Endocrine/Metabolic Hx Endocrine Disorders: Yes Hx Diabetes Mellitus Type 2: Yes - Hematological/Oncological Hx Blood Disorders: No - Integumentary Hx Dermatological Disorder: No (TATTOO TO LEFT LEG.) - Musculoskeletal/Rheumatological Hx Musculoskeletal Disorders: Yes Hx Falls: Yes - Gastrointestinal Hx Gastrointestinal Disorders: Yes Hx Gastritis: Yes - Genitourinary/Gynecological Hx Genitourinary Disorders: No Hx Sexually Transmitted Diseases: No - Psychiatric Hx Psychophysiologic Disorder: Yes Hx Anxiety: Yes Hx Depression: No Hx Substance Use: No - Past Surgical History Past Surgical History: No Previous - Anesthesia Hx Anesthesia: Yes Hx Anesthesia Reactions: No - Suicidal Assessment Feels Threatened In Home Enviroment: No Family/Social History - Physician Review Nursing Documentation Reviewed: Yes Family/Social History: Unknown Family HX Smoking Status: Heavy Smoker > 10 Cigarettes Daily Hx Alcohol Use: Yes Frequency of alcohol use: Socially Hx Substance Use: No Substance used: heroin Hx Substance Use Treatment: No Allergies/Home Meds Allergies/Adverse Reactions: Allergies No Known Allergies Allergy (Verified 07/20/17 16:38) Review of Systems - Physician Review All systems were reviewed & negative as marked: Yes - Review of Systems Constitutional: Normal Eyes: Normal ENT: Sinus Congestion Respiratory: Normal Cardiovascular: Normal Gastrointestinal: Normal Genitourinary Male: Normal Musculoskeletal: Normal Skin: Normal Neurological: Normal Endocrine: Normal Hemo/Lymphatic: Normal Psychiatric: Normal Physical Exam Vital Signs Reviewed: Yes Vital Signs Temp Pulse Resp BP Pulse Ox 07/20/17 16:39 98.8 F 100 H 17 132/82 96 Temperature: Afebrile Blood Pressure: Normal Pulse: Regular Respiratory Rate: Normal Appearance: Positive for: Well-Appearing, Non-Toxic, Comfortable Pain Distress: None Mental Status: Positive for: Alert and Oriented X 3 Finger Stick Blood Glucose: 500 - Systems Exam Head: Present: Atraumatic, Normocephalic Pupils: Present: PERRL Extroacular Muscles: Present: EOMI Conjunctiva: Present: Normal Mouth: Present: Moist Mucous Membranes Neck: Present: Normal Range of Motion Respiratory/Chest: Present: Clear to Auscultation, Good Air Exchange. No: Respiratory Distress, Accessory Muscle Use Cardiovascular: Present: Regular Rate and Rhythm, Normal S1, S2. No: Murmurs Abdomen: Present: Normal Bowel Sounds. No: Tenderness, Distention, Peritoneal Signs Back: Present: Normal Inspection Upper Extremity: Present: Normal Inspection. No: Cyanosis, Edema Lower Extremity: Present: Normal Inspection. No: Edema Neurological: Present: GCS=15, CN II-XII Intact, Speech Normal Skin: Present: Warm, Dry, Normal Color. No: Rashes Psychiatric: Present: Alert, Oriented x 3, Normal Insight, Normal Concentration Medical Decision Making ED Course and Treatment: 07/21/17 02:04 PT was hemodyanmically stable in ED. His FS was 500. Pt have not taken his oral hypoglycemic for weeks now. Lab and insulin was ordered , with plan to re evaluate pt. Pt however declined blood work and insulin in ED. she opted to sign out AMA. He was aware of the risk factor of uncontrolled Diabetes which can include renal failure or even . He notes understanding of these risk factors and still insisted on signing out AMA. States he will fill out his prescription and follow up with his own PMD. He was AAO x3 and mentally capable of making this decision. He was given a rx of metformin. Strongly advised to f/u with his PMD. He also expressed understanding of the choice of coming back to the ED at any time he changes his mind. - Medication Orders Current Medication Orders: Discontinued Medications Amoxicillin/Clavulanate Potassium (Augmentin 875 Mg-125 Mg Tab) 1 tab PO STAT STA PRN Reason: Protocol Stop: 07/20/17 17:22 Last Admin: 07/20/17 17:46 Dose: 1 tab Sodium Chloride (Sodium Chloride 0.9%) 1,000 mls @ 999 mls/hr IV .Q1H1M STA Stop: 07/20/17 18:26 Last Admin: 07/20/17 17:42 Dose: Not Given Non-Admin Reason: Patient Refused Ibuprofen (Motrin Tab) 600 mg PO STAT STA Stop: 07/20/17 17:23 Last Admin: 07/20/17 17:46 Dose: 600 mg Insulin Human Regular (Humulin R Med) 10 units IV ONCE STA PRN Reason: Protocol Stop: 07/20/17 17:27 Last Admin: 07/20/17 17:42 Dose: Not Given Non-Admin Reason: Patient Refused Disposition/Present on Arrival - Present on Arrival Any Indicators Present on Arrival: No History of DVT/PE: No History of Uncontrolled Diabetes: No Urinary Catheter: No History of Decub. Ulcer: No History Surgical Site Infection Following: None - Disposition Have Diagnosis and Disposition been Completed?: Yes Diagnosis: Hyperglycemia, Uncontrolled diabetes mellitus, Acute sinusitis Disposition: AGAINST MEDICAL ADVICE Disposition Time: 17:40 Condition: FAIR Prescriptions: Amoxicillin/Clavulanate [Augmentin 875 MG-125 MG] 1 tab PO BID #20 tab MetFORMIN [glucoPHAGE] 1,000 mg PO ONCE #20 tab Forms: [employer] ([place])
[2017-07-20] MEDS ORDERED: Sodium Chloride 0.9% 1,000 ML IV STA (17:26)
[2017-07-20] MEDS ORDERED: Insulin Reg-MEDIUM-Coverage IV STA (17:26)
== END 2017-07-20 17:49 | disposition left against medical advice (07) ==
LOC: ED 16:14
DX: E11.65 Type 2 diabetes mellitus with hyperglycemia (principal); J01.90 Acute sinusitis, unspecified; F17.210 Nicotine dependence, cigarettes, uncomplicated

== ENCOUNTER 2018-05-11 22:57 | Inpatient (IN) | payer MEDICAID, OTHER ==
[2018-05-11] MEDS ORDERED: Sodium Chloride 0.9% 1,000 ML IV STA (23:24)
--- NOTE | 2018-05-11 23:24 | ED PDOC ---
Arrival/HPI - General Chief Complaint: Alcohol Ingestion Time Seen by Provider: 05/11/18 22:58 Historian: Patient - History of Present Illness Narrative History of Present Illness (Text): 05/11/18 23:21 Tj Goncalves is a 42 year old male, whose past medical history alcohol abuse, gastritis, diabetes, and anxiety, who presents to the Emergency department brought in by EMS for altered mental status. Patient was found sleeping outside, poorly responsive. Limited HPI and ROS secondary to patient's altered mental status. Symptom Onset: Gradual Symptom Course: Unchanged Activities at Onset: Light Context: Street Past Medical History - Provider Review Nursing Documentation Reviewed: Yes - Past History Past History: No Previous - Infectious Disease Hx of Infectious Diseases: None - Tetanus Immunization Tetanus Immunization: Unknown - Past Medical History Past Medical History: No Previous - Cardiac Hx Hypertension: No - Pulmonary Hx Tuberculosis: No - Neurological Hx Seizures: No - HEENT Hx HEENT Disorder: No - Renal Hx Renal Disorder: No - Endocrine/Metabolic Hx Endocrine Disorders: Yes Hx Diabetes Mellitus Type 2: Yes - Hematological/Oncological Hx Cancer: No - Integumentary Hx Dermatological Disorder: No (TATTOO TO LEFT LEG.) - Musculoskeletal/Rheumatological Hx Falls: No - Gastrointestinal Hx Gastritis: Yes - Genitourinary/Gynecological Hx Sexually Transmitted Diseases: No - Psychiatric Hx Anxiety: Yes Hx Depression: No Hx Substance Use: Yes - Past Surgical History Past Surgical History: No Previous - Anesthesia Hx Anesthesia: Yes Hx Anesthesia Reactions: No - Suicidal Assessment Feels Threatened In Home Enviroment: No Family/Social History - Physician Review Nursing Documentation Reviewed: Yes Family/Social History: Unknown Family HX Smoking Status: Light Smoker < 10 Cigarettes Daily Hx Alcohol Use: Yes Hx Substance Use: Yes Substance used: percocet Hx Substance Use Treatment: No Allergies/Home Meds Allergies/Adverse Reactions: Allergies No Known Allergies Allergy (Verified 07/20/17 16:38) Review of Systems - Review of Systems Systems not reviewed;Unavailable: Altered Mental Status Physical Exam Vital Signs Reviewed: Yes Vital Signs Temp Pulse Resp BP Pulse Ox 05/11/18 23:09 98.2 F 110 H 14 115/76 92 L Temperature: Afebrile Blood Pressure: Normal Pulse: Regular Respiratory Rate: Normal Pain Distress: None Mental Status: Positive for: other (Drowsy) - Systems Exam Head: Present: Atraumatic, Normocephalic Pupils: Present: PERRL Extroacular Muscles: Present: EOMI Conjunctiva: Present: Normal Mouth: Present: Moist Mucous Membranes Neck: Present: Normal Range of Motion Respiratory/Chest: Present: Clear to Auscultation, Good Air Exchange. No: Respiratory Distress, Accessory Muscle Use Cardiovascular: Present: Regular Rate and Rhythm, Normal S1, S2. No: Murmurs Abdomen: No: Tenderness, Distention, Peritoneal Signs Back: Present: Normal Inspection Upper Extremity: Present: Normal Inspection. No: Cyanosis, Edema Lower Extremity: Present: Normal Inspection. No: Edema Neurological: Present: GCS=15, CN II-XII Intact Skin: Present: Warm, Dry, Normal Color. No: Rashes Medical Decision Making ED Course and Treatment: 05/11/18 23:21 Impression: 42 year old male brought in for altered mental status. Plan: -- CT Head w/o contrast -- EKG -- Chest X-ray -- Labs, alcohol level, blood cultures -- Urinalysis, urine cultures -- Reassess and disposition Prior Visits: Notes and results from previous visits were reviewed. On 08/22/2017, pt was seen at [facility] ER requesting alcohol detox. Pt was admitted to the hospital for alcohol abuse, hyponatremia, hypokalemia, and hyperglycemia. Progress Notes: 05/11/18 23:25 Fingerstick noted to be >500. VBG, Insulin 10 units IVP, IV fluids ordered. 05/12/18 01:00 Reviewed EKG, sinus tachycardia at [address]-segment elevations or depressions, no T-wave inversions, normal intervals. 05/12/18 01:06 Pt was given Narcan 0.4mg after which pt became more arousable. 05/12/18 01:45 Pt became increasingly drowsy again after initial Narcan. Pt was given addition al 1.6mg of Narcan and placed on Narcan drip. 05/12/18 01:52 Case discussed with medical sales specialist personal injury paralegal, who is aware and agrees with plan. 05/12/18 01:[address] Zack Talbert who is aware and agrees with plan. Accepts pt in to hospitalist service. Pt will be admitted to ICU for drug overdose, AMS, and diabetes. 05/12/18 01:59 Chest X-ray reviewed, shows no acute processes. 05/12/18 03:05 CT Head reviewed, shows: Normal size of the ventricles and extra-axial spaces for the patient's age. Normal white matter tracts of the supratentorial brain. Normal basal ganglia and thalami. Normal brainstem. Normal cerebellum. There is no demonstrated extra-axial, intraparenchymal, or intraventricular hemorrhage. There are no findings of an acute ischemic infarction. Normal calvarium. There is no demonstrated fracture. Normal soft tissue structures. Normal visualized paranasal sinuses. IMPRESSION: Normal unenhanced CT scan of the brain. Electronically signed on May 12, 2018 3:03:19 AM EST by: Darien Camejo M.D., Certified by ABR, MSK, Neuroradiology - Critical Care Critical Care Minutes: 30 minutes - Lab Interpretations I have reviewed the lab results: Yes - RAD Interpretation Housing Management Representative: ED Physician, Radiologist - EKG Interpretation Interpreted by ED Physician: Yes Type: 12 lead EKG - Scribe Statement The provider has reviewed the documentation as recorded by the Krissibmarciano Saenz Provider Scribe Attestation: All medical record entries made by the Scribe were at my direction and personally dictated by me. I have reviewed the chart and agree that the record accurately reflects my personal performance of the history, physical exam, medical decision making, and the department course for this patient. I have also personally directed, reviewed, and agree with the discharge instructions and disposition. Disposition/Present on Arrival - Present on Arrival Any Indicators Present on Arrival: No History of DVT/PE: No History of Uncontrolled Diabetes: No Urinary Catheter: No History of Decub. Ulcer: No History Surgical Site Infection Following: None - Disposition Have Diagnosis and Disposition been Completed?: Yes Diagnosis: Drug overdose, Altered mental status, Diabetes mellitus, Sepsis Disposition: HOSPITALIZED Disposition Time: 02:08 Patient Problems: Current Active Problems Problem Status Onset Altered mental status Acute Diabetes mellitus Acute Drug overdose Acute Sepsis Acute Condition: STABLE Discharge Instructions (ExitCare): Sepsis (ED) Referrals: Joshua Leslie MD [Primary Care Provider] - Follow up with primary Forms: [employer] (Citizen Of [place])
[2018-05-11] MEDS ORDERED: Insulin Regular 1 UNITS/0.01 ML ML IVP STA (23:26)
[2018-05-11 23:45] LABS: HEMOGLOBIN 15.4 g/dL (14.0-18.0); MEAN CELL VOLUME 91.2 fl (80.0-105.0); MEAN CORPUSCULAR HEMOGLOBIN 31.6 pg (25.0-35.0); MEAN CORPUSCULAR HGB CONC 34.6 g/dl (31.0-37.0); MEAN PLATELET VOLUME 10.1 fl (7.0-11.0); RBC 4.88 10^6/uL (3.5-6.1); RED CELL DISTRIBUTION WIDTH 13.2 % (11.5-14.5); WHITE BLOOD COUNT 17.1 10^3/uL (4.5-11.0)
[2018-05-12 00:26] LABS: VENOUS BLOOD GAS BASE EXCESS -4.4 mmol/L (0.0-2.0); VENOUS BLOOD GAS PO2 73 mm/Hg (30-55)
[2018-05-12] MEDS ORDERED: Naloxone 0.4 mg/ml Inj (Adult) IVP STA ×4 (00:57→05:37)
[2018-05-12 01:02] LABS: ALB/GLOB RATIO 1.4 (1.1-1.8); ALBUMIN 4.3 g/dL (3.0-4.8); CALCIUM 9.2 mg/dL (8.4-10.5); VENOUS BLOOD PH 7.15 (7.32-7.43)
[2018-05-12] MEDS ORDERED: Naloxone 0.4 mg/ml Inj (Adult) ONE (01:03)
[2018-05-12] MEDS ORDERED: Naloxone HCl 2mg/2ml syr IVPB ONE (01:33)
[2018-05-12] MEDS ORDERED: Naloxone 2 MG in Sodium Chloride 0.9% 500 ML IV ONE (01:45)
[2018-05-12] MEDS ORDERED: Cefepime IV 2 gm in NS 2 GM/100 ML BAG IVPB STA (02:58)
[2018-05-12] MEDS ORDERED: Vancomycin 1gm in NS 250ml 1 GM/250 ML BAG IVPB STA (02:58)
[2018-05-12] MEDS ORDERED: Sodium Chloride 0.9% 1,000 ML IV SCH (03:30)
--- NOTE | 2018-05-12 03:47 | CP.PCM.HP ---
History of Present Illness - History of Present Illness History of Present Illness: Jun Perales PGY1 History and Physical for Dennys Talbert Pt is a 42 yo male, with a PMH of alcohol abuse, opiate abuse, gastritis, diabetes, and anxiety, who presents to the ED brought in by EMS for altered mental status. Patient was found sleeping outside, poorly responsive. During history and physical, pt is able to respond to his name, but is only able to open his eyes briefly before closing them and no responding. Pt must be repeate dly awakened during the history. Pt denies using heroin. History and ROS are both very limited due to pt altered mental status, most of the past medical history is obtained from chart review. PMH: alcohol abuse, heroin abuse, Diabetes, Gastritis, Anxiety PSH: denies FH: Mother [place] in 7th decade, Father [place] in 6th decade SH: 15pack years, 3 beers every other day X 15 years, Cocaine use, opiate use home meds: unknown Allergies: NKDA PMD: unknown Present on Admission - Present on Admission Any Indicators Present on Admission: Yes History of Uncontrolled Diabetes: Yes Review of Systems - Review of Systems Review of Systems: limited due to pt altered mental status Past Patient History - Infectious Disease Hx of Infectious Diseases: None - Tetanus Immunizations Tetanus Immunization: Unknown - Past Medical History & Family History Past Medical History?: Yes - Past Social History Smoking Status: Light Smoker < 10 Cigarettes Daily - CARDIAC Hx Hypertension: No - PULMONARY Hx Tuberculosis: No - NEUROLOGICAL Hx Seizures: No - HEENT Hx HEENT Problems: No - RENAL Hx Chronic Kidney Disease: No - ENDOCRINE/METABOLIC Hx Endocrine Disorders: Yes Hx Diabetes Mellitus Type 2: Yes - HEMATOLOGICAL/ONCOLOGICAL Hx Cancer: No - INTEGUMENTARY Hx Dermatological Problems: No (TATTOO TO LEFT LEG.) - MUSCULOSKELETAL/RHEUMATOLOGICAL Hx Falls: No - GASTROINTESTINAL Hx Gastritis: Yes - GENITOURINARY/GYNECOLOGICAL Hx Sexually Transmitted Disorders: No - PSYCHIATRIC Hx Anxiety: Yes Hx Depression: No Hx Substance Use: Yes - SURGICAL HISTORY Hx Surgeries: No - ANESTHESIA Hx Anesthesia: Yes Hx Anesthesia Reactions: No Meds Allergies/Adverse Reactions: Allergies Allergy/AdvReac Type Severity Reaction Status Date / Time No Known Allergies Allergy Verified 07/20/17 16:38 Physical Exam - Constitutional Appears: No Acute Distress Additional comments: laying with eyes closed, mouth open, snoring, minimally responsive - Head Exam Head Exam: ATRAUMATIC, NORMAL INSPECTION, NORMOCEPHALIC - Eye Exam Eye Exam: EOMI. absent: Scleral icterus Additional comments: pin point pupils, minimally reactive to light - ENT Exam ENT Exam: Mucous Membranes Moist - Respiratory Exam Respiratory Exam: Clear to Auscultation Bilateral, NORMAL BREATHING PATTERN. absent: Accessory Muscle Use, Wheezes, Respiratory Distress - Cardiovascular Exam Cardiovascular Exam: RRR, +S1, +S2. absent: Diastolic murmur, Systolic Murmur - GI/Abdominal Exam GI & Abdominal Exam: Normal Bowel Sounds, Soft. absent: Tenderness - Extremities Exam Extremities exam: Positive for: full ROM, pedal pulses present. Negative for: calf tenderness, pedal edema - Neurological Exam Neurological exam: Altered - Skin Skin Exam: Dry, Intact, Warm Additional comments: scabs located bl on shins Results - Vital Signs Recent Vital Signs: Last Vital Signs Temp 98.2 F 05/11/18 23:09 Pulse 97 H 05/12/18 02:15 Resp 12 05/12/18 02:15 BP 115/79 05/12/18 02:15 Pulse Ox 93 L 05/12/18 02:15 - Labs Result Diagrams: 05/11/18 23:35 05/12/18 00:05 Labs: Laboratory Results - last 24 hr 05/11/18 05/11/18 05/12/18 23:35 23:35 00:05 WBC 17.1 H RBC 4.88 Hgb 15.4 Hct 44.5 MCV 91.2 D MCH 31.6 MCHC 34.6 RDW 13.2 Plt Count 276 MPV 10.1 pO2 VBG pH VBG pCO2 VBG HCO3 VBG Total CO2 VBG O2 Sat (Calc) VBG Base Excess VBG Potassium Sodium 135 Chloride 96 L Glucose Lactate FiO2 Potassium 3.7 Carbon Dioxide 25 Anion Gap 18 BUN 19 Creatinine 2.3 H Est GFR ( Amer) 38 Est GFR (Non-Af Amer) 31 Random Glucose 543 H* D Calcium 9.2 Total Bilirubin 0.3 AST 37 ALT 38 Alkaline Phosphatase 99 Total Protein 7.5 Albumin 4.3 Globulin 3.1 Albumin/Globulin Ratio 1.4 Venous Blood Potassium Alcohol, Quantitative < 10 05/12/18 00:05 WBC RBC Hgb Hct MCV MCH MCHC RDW Plt Count MPV pO2 73 H VBG pH 7.15 L* VBG pCO2 75.0 H* VBG HCO3 26.1 VBG Total CO2 28.4 H VBG O2 Sat (Calc) 95.2 H VBG Base Excess -4.4 L VBG Potassium 3.5 L Sodium 135.0 Chloride 94.0 L Glucose 550 H* D Lactate 3.5 H FiO2 21.0 Potassium Carbon Dioxide Anion Gap BUN Creatinine Est GFR ( Amer) Est GFR (Non-Af Amer) Random Glucose Calcium Total Bilirubin AST ALT Alkaline Phosphatase Total Protein Albumin Globulin Albumin/Globulin Ratio Venous Blood Potassium 3.5 L Alcohol, Quantitative Assessment & Plan - Assessment and Plan (Free Text) Assessment: Pt is a 42 yo male, with a PMH of alcohol abuse, opiate abuse, gastritis, diabetes, and anxiety, who presents to the ED brought in by EMS for altered mental status. Patient was found sleeping outside, poorly responsive. Pt given narcan, pt became more alert and responsive after administration. Plan: Neuro - Altered metal status - likely due to opiate overdose - pt received 0.4mg Narcan, 1.6mg of narcan, 0.4mg of narcan and subsequently placed on a narcan drip - follow up head CT official read Cardio - Sinus Tachycardia - maintain MAP>65 - trop neg, continue to trend Respiratory - monitor for respiratory distress - O2 sat 95 - continue O2 nasal cannula GI - NPO Nephro/ - ANTHONY - Cr 2.3 - pt given fluid bolus, started on NS125 - K 3.7, given 20meg k rider, continue to monitor - follow up HA1C - follow up ABG ID - afebrile - WBC 17.1 - blood cultures and urine cultures - follow up HIV - follow up Hep panel - follow up procal - cefepime given in ED - given vanc in ED Endocrine - DM - pt blood glucose in the 500's on admission, pt given 10units of insulin - accuchecks ACHS - ISS - goal is to maintain euglycemia - Ppx - lovenox Pt seen, examined, assessment and plan discussed with Dennys Perales PGY1 - Date & Time Date: 05/12/18 Time: 03:50
[2018-05-12] MEDS ORDERED: Sodium Chloride 0.9% 1,000 ML IV STA (03:56)
[2018-05-12 04:03] LABS: ARTERIAL BLOOD GAS HEMOGLOBIN 13.7 g/dL (11.7-17.4); ARTERIAL BLOOD GAS O2 CAPACITY 18.7 mL/dl (16-24); ARTERIAL BLOOD GAS O2 CONTENT 18.4 ML/dl (15-23); ARTERIAL BLOOD GAS O2 SAT 98.3 % (95-98); ARTERIAL BLOOD GAS PCO2 60 mm/Hg (35-45); ARTERIAL BLOOD GAS PH 7.21 (7.35-7.45); ARTERIAL BLOOD GAS TCO2 25.8 mmol.L (22-28)
[2018-05-12] MEDS ORDERED: Thiamine 100 mg/ml Inj IM STA (04:14)
[2018-05-12 04:25] LABS: AMYLASE 101 U/L (35-125); LIPASE 209 U/L (23-300)
[2018-05-12 04:26] LABS: VENOUS BLOOD GAS BASE EXCESS -4.5 mmol/L (0.0-2.0); VENOUS BLOOD GAS PO2 91 mm/Hg (30-55); VENOUS BLOOD PH 7.21 (7.32-7.43)
[2018-05-12 04:38] LABS: URINE BILIRUBIN NEGATIVE (NEGATIVE); URINE BLOOD SMALL (NEGATIVE); URINE GLUCOSE (UA) >=1000 mg/dL (NEGATIVE); URINE LEUKOCYTE ESTERASE NEGATIVE Leu/uL (NEGATIVE); URINE PROTEIN 30 mg/dL (<30 mg/dL); URINE UROBILINOGEN 0.2 E.U./dL (<1 E.U./dL)
[2018-05-12 04:49] LABS: URINE APPEARANCE CLEAR (CLEAR); URINE COLOR YELLOW (YELLOW)
[2018-05-12 04:51] LABS: URINE BACTERIA FEW (NEG); URINE HYALINE CAST 0 - 2 /hpf; URINE WBC 0 - 2 /hpf (0-6)
[2018-05-12 05:10] LABS: BARBITURATES, UR NEGATIVE (NEGATIVE); BENZODIAZEPINES, UR POSITIVE (NEGATIVE); OPIATES, UR POSITIVE (NEGATIVE); PHENCYCLIDINE, UR NEGATIVE (NEGATIVE)
[2018-05-12 06:53] VITALS: TEMP 98.1
[2018-05-12] MEDS ORDERED: Folic Acid 1 MG, Thiamine 100 MG, Multivitamin (MVI) 10 ML in Dextrose 5% In Water 1,00... IV SCH (07:30)
[2018-05-12] MEDS: Insulin Lispro (HUMAlog) HIGH Coverage SC SCH ×2 (08:10→11:32)
[2018-05-12 08:24] LABS: BASO # 0.05 K/mm3 (0.0-2.0); BASO % 0.5 % (0.0-3.0); EOS # 0.2 (0.0-0.7); EOS % 1.7 % (1.5-5.0); GRAN # 7.24 (1.4-6.5); GRAN % 67.2 % (50.0-68.0); LYMPH # 2.8 (1.2-3.4); MEAN CELL VOLUME 90.8 fl (80.0-105.0); MEAN CORPUSCULAR HEMOGLOBIN 30.3 pg (25.0-35.0); MEAN CORPUSCULAR HGB CONC 33.3 g/dl (31.0-37.0); MEAN PLATELET VOLUME 9.4 fl (7.0-11.0); MONO # 0.5 (0.1-0.6); MONO % 4.6 % (1.0-6.0); RBC 4.13 10^6/uL (3.5-6.1); RED CELL DISTRIBUTION WIDTH 13.1 % (11.5-14.5); WHITE BLOOD COUNT 10.8 10^3/uL (4.5-11.0)
[2018-05-12 08:25] LABS: HEMOGLOBIN 12.5 g/dL (14.0-18.0)
[2018-05-12 08:28] LABS: ALB/GLOB RATIO 1.3 (1.1-1.8); ALBUMIN 3.8 g/dL (3.0-4.8); ALT/SGPT 33 U/L (7-56); AST/SGOT 31 U/L (17-59); BLOOD UREA NITROGEN 17 mg/dL (7-21); CALCIUM 8.2 mg/dL (8.4-10.5); GFR NON-AFRICAN AMERICAN > 60
[2018-05-12 08:55] VITALS: BMI 22.6
[2018-05-12] MEDS ORDERED: Multivitamin (MVI) 10 ML, Thiamine 100 MG, Folic Acid 1 MG in Sodium Chloride 0.9% 1,00... IV ONE (09:04)
[2018-05-12 09:23] LABS: ARTERIAL BLOOD GAS O2 SAT 99.2 % (95-98); ARTERIAL BLOOD GAS PCO2 49 mm/Hg (35-45); ARTERIAL BLOOD GAS PH 7.28 (7.35-7.45); ARTERIAL BLOOD GAS TCO2 24.5 mmol.L (22-28)
--- NOTE | 2018-05-12 09:30 | CARD ---
APPROVED REPORT Date of service: 05/12/2018 EKG Measurement Heart [id number] <Conclusion> Sinus tachycardia, High Voltage Otherwise normal ECG
--- NOTE | 2018-05-12 09:51 | CT ---
Date of service: 05/12/2018 PROCEDURE: CT HEAD WITHOUT CONTRAST. HISTORY: AMS COMPARISON: 02/22/2017 TECHNIQUE: Axial computed tomography images were obtained through the head/brain without intravenous contrast. Radiation dose: Total exam DLP = 853.0 mGy-cm. This CT exam was performed using one or more of the following dose reduction techniques: Automated exposure control, adjustment of the mA and/or kV according to patient size, and/or use of iterative reconstruction technique. FINDINGS: HEMORRHAGE: No intracranial hemorrhage. BRAIN: No mass effect or edema. No atrophy or chronic microvascular ischemic changes. VENTRICLES: Unremarkable. No hydrocephalus. CALVARIUM: Unremarkable. PARANASAL SINUSES: Unremarkable as visualized. No significant inflammatory changes. MASTOID AIR CELLS: Unremarkable as visualized. No inflammatory changes. OTHER FINDINGS: None. IMPRESSION: Normal CT of the Head. No intracranial mass, hemorrhage or evidence of acute infarct. The preliminary findings for this examination were reported by [facility] at 05/12/2018 at 3:03 a.m.. There is concurrence of this report with the preliminary findings.
[2018-05-12] MEDS ORDERED: Enoxaparin 40 mg Syringe SC SCH (10:00)
--- NOTE | 2018-05-12 10:50 | CP.CCUPN ---
<Laura Arredondo - Last Filed: 05/12/18 11:57> CCU Subjective - Physician Review Subjective (Free Text): CRITICAL CARE PROGRESS NOTE FOR DR. KEYUR Arredondo PGY-1 Pt seen and examined at bedside this am. He is alert and awake x 3, conversing and tolerating his breakfast. He denies any acute complaints. He reports he doesn't remember exactly how he got to the hospital. He reports feeling better this am, and denies symptoms of withdrawal. He reports fatigue, but denies other ROS. CCU Objective - Vital Signs / Intake & Output Vital Signs (Last 4 hours): Vital Signs Temp Pulse Resp BP Pulse Ox 05/12/18 06:52 98.1 F 90 14 109/83 97 Intake and Output (Last 8hrs): Intake & Output 05/11/18 05/12/18 05/12/18 22:59 06:59 14:59 Weight 74.843 kg 69.57 kg - Physical Exam Physical Exam Limitations: Negative for: Altered Mental Status, Uncooperative Head: Positive for: Atraumatic, Normocephalic Pupils: Positive for: PERRL Extroacular Muscles: Positive for: EOMI Conjunctiva: Positive for: Normal Mouth: Positive for: Moist Mucous Membranes Neck: Positive for: Normal Range of Motion Respiratory/Chest: Positive for: Clear to Auscultation, Good Air Exchange. Negative for: Respiratory Distress, Accessory Muscle Use Cardiovascular: Positive for: Regular Rate and Rhythm, Normal S1, S2. Negative for: Murmurs Abdomen: Negative for: Tenderness, Distention, Peritoneal Signs Back: Positive for: Normal Inspection Upper Extremity: Positive for: Normal Inspection. Negative for: Cyanosis, Edema Lower Extremity: Positive for: Normal Inspection, Other (Bilateral linear, healed ulceration noted). Negative for: Edema Neurological: Positive for: GCS=15, CN II-XII Intact Skin: Positive for: Warm, Dry, Normal Color. Negative for: Rashes Psychiatric: Positive for: Alert, Oriented x 3, Lethargic - Medications Active Medications: Active Medications Generic Name Dose Route Start Last Admin Trade Name Freq PRN Reason Stop Dose Admin Enoxaparin Sodium 40 mg 05/12/18 10:00 Lovenox SC DAILY SHARON Protocol Naloxone HCl 2 mg/ Sodium 505 mls @ 1 mls/hr 05/12/18 01:45 05/12/18 02:12 Chloride IV 05/13/18 01:44 1 mls/hr .Q24H ONE Administration Multivitamins/Vitamin C 10 ml/ 1,011.2 mls @ 100 mls/hr 05/12/18 09:04 05/12/18 10:27 Thiamine HCl 100 mg/ Folic IV 05/12/18 19:10 100 mls/hr Acid 1 mg/ Sodium Chloride .[id number] ONE Administration Insulin Human Lispro 0 units 05/12/18 07:30 05/12/18 08:10 Humalog High SC 4 unit ACHS SHARON Administration Protocol Lorazepam 1 mg 05/12/18 07:17 Ativan IVP Q4H PRN Anxiety Protocol Pantoprazole Sodium 40 mg 05/12/18 10:00 Protonix Inj IVP DAILY SHARON - Patient Studies Lab Studies: Lab Studies 05/12/18 05/12/18 05/12/18 Range/Units 09:15 08:10 08:10 WBC 10.8 D (4.5-11.0) 10^3/uL RBC 4.13 (3.5-6.1) 10^6/uL Hgb 12.5 L D (14.0-18.0) g/dL Hct 37.5 L (42.0-52.0) % MCV 90.8 (80.0-105.0) fl MCH 30.3 (25.0-35.0) pg MCHC 33.3 (31.0-37.0) g/dl RDW 13.1 (11.5-14.5) % Plt Count 220 (120.0-450.0) 10^3/uL MPV 9.4 (7.0-11.0) fl Gran % 67.2 (50.0-68.0) % Lymph % (Auto) 26.0 (22.0-35.0) % [place] % (Auto) 4.6 (1.0-6.0) % Eos % (Auto) 1.7 (1.5-5.0) % Baso % (Auto) 0.5 (0.0-3.0) % Gran # 7.24 H (1.4-6.5) Lymph # (Auto) 2.8 (1.2-3.4) [place] # (Auto) 0.5 (0.1-0.6) Eos # (Auto) 0.2 (0.0-0.7) Baso # (Auto) 0.05 (0.0-2.0) K/mm3 pCO2 49 H (35-45) mm/Hg pO2 98.0 (30-55) mm/Hg HCO3 23.0 (21-28) mmol/L ABG pH 7.28 L (7.35-7.45) ABG Total CO2 24.5 (22-28) mmol.L ABG O2 Saturation 99.2 H (95-98) % ABG O2 Content (15-23) ML/dl ABG Base Excess -4.1 L (-2.0-3.0) mmol/L ABG Hemoglobin (11.7-17.4) g/dL ABG Carboxyhemoglobin (0.5-1.5) % POC ABG HHb (Measured) (0-5) % ABG Methemoglobin (0.0-3.0) % ABG O2 Capacity (16-24) mL/dl ABG Potassium 3.6 (3.6-5.2) mmol/L VBG pH (7.32-7.43) VBG pCO2 (40-60) VBG HCO3 (21-28) mmol/l VBG Total CO2 (22-28) mmol.L VBG O2 Sat (Calc) (40-65) % VBG Base Excess (0.0-2.0) mmol/L VBG Potassium (3.6-5.2) mmol/L Hgb O2 Saturation (95.0-98.0) % Sodium 135.0 134 (132-148) mmol/L Chloride 104.0 102 (98-107) mmol/L Glucose 187 H (75-110) mg/dl Lactate 1.4 (0.7-2.1) mmol/L FiO2 28.0 % Potassium 4.3 (3.6-5.0) mmol/L Carbon Dioxide 24 (21-33) mmol/L Anion Gap 12 (10-20) BUN 17 (7-21) mg/dL Creatinine 1.1 (0.8-1.5) mg/dl Est GFR ( Amer) > 60 Est GFR (Non-Af Amer) > 60 POC Glucose (mg/dL) (65-110) mg/dL Random Glucose 248 H (70-110) mg/dL Calcium 8.2 L (8.4-10.5) mg/dL Total Bilirubin 0.5 (0.2-1.3) mg/dL AST 31 (17-59) U/L ALT 33 (7-56) U/L Alkaline Phosphatase 100 (38-126) U/L Troponin I ng/mL Total Protein 6.7 (5.8-8.3) g/dL Albumin 3.8 (3.0-4.8) g/dL Globulin 3.0 gm/dL Albumin/Globulin Ratio 1.3 (1.1-1.8) Amylase (35-125) U/L Lipase (23-300) U/L Arterial Blood Potassium 3.6 (3.6-5.2) mmol/L Venous Blood Potassium (3.6-5.2) mmol/L Urine Color (YELLOW) Urine Appearance (CLEAR) Urine pH (4.7-8.0) Ur Specific [place] (1.005-1.035) Urine Protein (<30 mg/dL) mg/dL Urine Glucose (UA) (NEGATIVE) mg/dL Urine Ketones (NEGATIVE) mg/dL Urine Blood (NEGATIVE) Urine Nitrate (NEGATIVE) Urine Bilirubin (NEGATIVE) Urine Urobilinogen (<1 E.U./dL) E.U./dL Ur Leukocyte Esterase (NEGATIVE) Abiel/uL Urine RBC (0-2) /hpf Urine WBC (0-6) /hpf Ur Epithelial Cells (0-5) /hpf Urine Bacteria (NEG) Hyaline Casts /hpf Urine Other Urine Opiates Screen (NEGATIVE) Urine Methadone Screen (NEGATIVE) Ur Barbiturates Screen (NEGATIVE) Ur Phencyclidine Scrn (NEGATIVE) Ur Amphetamines Screen (NEGATIVE) U Benzodiazepines Scrn (NEGATIVE) U Oth Cocaine Metabols (NEGATIVE) U Cannabinoids Screen (NEGATIVE) Alcohol, Quantitative (0-10) mg/dL 05/12/18 05/12/18 05/12/18 Range/Units 04:15 04:15 04:10 WBC (4.5-11.0) 10^3/uL RBC (3.5-6.1) 10^6/uL Hgb (14.0-18.0) g/dL Hct (42.0-52.0) % MCV (80.0-105.0) fl MCH (25.0-35.0) pg MCHC (31.0-37.0) g/dl RDW (11.5-14.5) % Plt Count (120.0-450.0) 10^3/uL MPV (7.0-11.0) fl Gran % (50.0-68.0) % Lymph % (Auto) (22.0-35.0) % [place] % (Auto) (1.0-6.0) % Eos % (Auto) (1.5-5.0) % Baso % (Auto) (0.0-3.0) % Gran # (1.4-6.5) Lymph # (Auto) (1.2-3.4) [place] # (Auto) (0.1-0.6) Eos # (Auto) (0.0-0.7) Baso # (Auto) (0.0-2.0) K/mm3 pCO2 (35-45) mm/Hg pO2 91 H (30-55) mm/Hg HCO3 (21-28) mmol/L ABG pH (7.35-7.45) ABG Total CO2 (22-28) mmol.L ABG O2 Saturation (95-98) % ABG O2 Content (15-23) ML/dl ABG Base Excess (-2.0-3.0) mmol/L ABG Hemoglobin (11.7-17.4) g/dL ABG Carboxyhemoglobin (0.5-1.5) % POC ABG HHb (Measured) (0-5) % ABG Methemoglobin (0.0-3.0) % ABG O2 Capacity (16-24) mL/dl ABG Potassium (3.6-5.2) mmol/L VBG pH 7.21 L (7.32-7.43) VBG pCO2 61.0 H (40-60) VBG HCO3 24.4 (21-28) mmol/l VBG Total CO2 26.3 (22-28) mmol.L VBG O2 Sat (Calc) 98.8 H (40-65) % VBG Base Excess -4.5 L (0.0-2.0) mmol/L VBG Potassium 4.4 (3.6-5.2) mmol/L Hgb O2 Saturation (95.0-98.0) % Sodium 135.0 (132-148) mmol/L Chloride 102.0 (98-107) mmol/L Glucose 297 H (75-110) mg/dl Lactate 1.2 (0.7-2.1) mmol/L FiO2 21.0 % Potassium (3.6-5.0) mmol/L Carbon Dioxide (21-33) mmol/L Anion Gap (10-20) BUN (7-21) mg/dL Creatinine (0.8-1.5) mg/dl Est GFR ( Amer) Est GFR (Non-Af Amer) POC Glucose (mg/dL) (65-110) mg/dL Random Glucose (70-110) mg/dL Calcium (8.4-10.5) mg/dL Total Bilirubin (0.2-1.3) mg/dL AST (17-59) U/L ALT (7-56) U/L Alkaline Phosphatase (38-126) U/L Troponin I < 0.01 D ng/mL Total Protein (5.8-8.3) g/dL Albumin (3.0-4.8) g/dL Globulin gm/dL Albumin/Globulin Ratio (1.1-1.8) Amylase (35-125) U/L Lipase (23-300) U/L Arterial Blood Potassium (3.6-5.2) mmol/L Venous Blood Potassium 4.4 (3.6-5.2) mmol/L Urine Color (YELLOW) Urine Appearance (CLEAR) Urine pH (4.7-8.0) Ur Specific [place] (1.005-1.035) Urine Protein (<30 mg/dL) mg/dL Urine Glucose (UA) (NEGATIVE) mg/dL Urine Ketones (NEGATIVE) mg/dL Urine Blood (NEGATIVE) Urine Nitrate (NEGATIVE) Urine Bilirubin (NEGATIVE) Urine Urobilinogen (<1 E.U./dL) E.U./dL Ur Leukocyte Esterase (NEGATIVE) Abiel/uL Urine RBC (0-2) /hpf Urine WBC (0-6) /hpf Ur Epithelial Cells (0-5) /hpf Urine Bacteria (NEG) Hyaline Casts /hpf Urine Other Urine Opiates Screen Positive H (NEGATIVE) Urine Methadone Screen Negative (NEGATIVE) Ur Barbiturates Screen Negative (NEGATIVE) Ur Phencyclidine Scrn Negative (NEGATIVE) Ur Amphetamines Screen Negative (NEGATIVE) U Benzodiazepines Scrn Positive H (NEGATIVE) U Oth Cocaine Metabols Negative (NEGATIVE) U Cannabinoids Screen Negative (NEGATIVE) Alcohol, Quantitative (0-10) mg/dL 05/12/18 05/12/18 05/12/18 Range/Units 04:10 03:58 00:41 WBC (4.5-11.0) 10^3/uL RBC (3.5-6.1) 10^6/uL Hgb (14.0-18.0) g/dL Hct (42.0-52.0) % MCV (80.0-105.0) fl MCH (25.0-35.0) pg MCHC (31.0-37.0) g/dl RDW (11.5-14.5) % Plt Count (120.0-450.0) 10^3/uL MPV (7.0-11.0) fl Gran % (50.0-68.0) % Lymph % (Auto) (22.0-35.0) % [place] % (Auto) (1.0-6.0) % Eos % (Auto) (1.5-5.0) % Baso % (Auto) (0.0-3.0) % Gran # (1.4-6.5) Lymph # (Auto) (1.2-3.4) [place] # (Auto) (0.1-0.6) Eos # (Auto) (0.0-0.7) Baso # (Auto) (0.0-2.0) K/mm3 pCO2 60 H (35-45) mm/Hg pO2 84.0 (30-55) mm/Hg HCO3 24.0 (21-28) mmol/L ABG pH 7.21 L (7.35-7.45) ABG Total CO2 25.8 (22-28) mmol.L ABG O2 Saturation 98.3 H (95-98) % ABG O2 Content 18.4 (15-23) ML/dl ABG Base Excess -4.8 L (-2.0-3.0) mmol/L ABG Hemoglobin 13.7 (11.7-17.4) g/dL ABG Carboxyhemoglobin 2.6 H (0.5-1.5) % POC ABG HHb (Measured) 1.6 (0-5) % ABG Methemoglobin 0.8 (0.0-3.0) % ABG O2 Capacity 18.7 (16-24) mL/dl ABG Potassium (3.6-5.2) mmol/L VBG pH (7.32-7.43) VBG pCO2 (40-60) VBG HCO3 (21-28) mmol/l VBG Total CO2 (22-28) mmol.L VBG O2 Sat (Calc) (40-65) % VBG Base Excess (0.0-2.0) mmol/L VBG Potassium (3.6-5.2) mmol/L Hgb O2 Saturation 95.0 (95.0-98.0) % Sodium (132-148) mmol/L Chloride (98-107) mmol/L Glucose (75-110) mg/dl Lactate (0.7-2.1) mmol/L FiO2 28.0 % Potassium (3.6-5.0) mmol/L Carbon Dioxide (21-33) mmol/L Anion Gap (10-20) BUN (7-21) mg/dL Creatinine (0.8-1.5) mg/dl Est GFR ( Amer) Est GFR (Non-Af Amer) POC Glucose (mg/dL) 358 H (65-110) mg/dL Random Glucose (70-110) mg/dL Calcium (8.4-10.5) mg/dL Total Bilirubin (0.2-1.3) mg/dL AST (17-59) U/L ALT (7-56) U/L Alkaline Phosphatase (38-126) U/L Troponin I ng/mL Total Protein (5.8-8.3) g/dL Albumin (3.0-4.8) g/dL Globulin gm/dL Albumin/Globulin Ratio (1.1-1.8) Amylase (35-125) U/L Lipase (23-300) U/L Arterial Blood Potassium (3.6-5.2) mmol/L Venous Blood Potassium (3.6-5.2) mmol/L Urine Color Yellow (YELLOW) Urine Appearance Clear (CLEAR) Urine pH 6.0 (4.7-8.0) Ur Specific [place] 1.020 (1.005-1.035) Urine Protein 30 H (<30 mg/dL) mg/dL Urine Glucose (UA) >=1000 (NEGATIVE) mg/dL Urine Ketones Negative (NEGATIVE) mg/dL Urine Blood Small H (NEGATIVE) Urine Nitrate Negative (NEGATIVE) Urine Bilirubin Negative (NEGATIVE) Urine Urobilinogen 0.2 (<1 E.U./dL) E.U./dL Ur Leukocyte Esterase Negative (NEGATIVE) Abiel/uL Urine RBC 1 - 3 (0-2) /hpf Urine WBC 0 - 2 (0-6) /hpf Ur Epithelial Cells 1 - 3 (0-5) /hpf Urine Bacteria Few (NEG) Hyaline Casts 0 - 2 /hpf Urine Other Mucus Urine Opiates Screen (NEGATIVE) Urine Methadone Screen (NEGATIVE) Ur Barbiturates Screen (NEGATIVE) Ur Phencyclidine Scrn (NEGATIVE) Ur Amphetamines Screen (NEGATIVE) U Benzodiazepines Scrn (NEGATIVE) U Oth Cocaine Metabols (NEGATIVE) U Cannabinoids Screen (NEGATIVE) Alcohol, Quantitative (0-10) mg/dL 05/12/18 05/12/18 05/12/18 Range/Units 00:05 00:05 00:05 WBC (4.5-11.0) 10^3/uL RBC (3.5-6.1) 10^6/uL Hgb (14.0-18.0) g/dL Hct (42.0-52.0) % MCV (80.0-105.0) fl MCH (25.0-35.0) pg MCHC (31.0-37.0) g/dl RDW (11.5-14.5) % Plt Count (120.0-450.0) 10^3/uL MPV (7.0-11.0) fl Gran % (50.0-68.0) % Lymph % (Auto) (22.0-35.0) % [place] % (Auto) (1.0-6.0) % Eos % (Auto) (1.5-5.0) % Baso % (Auto) (0.0-3.0) % Gran # (1.4-6.5) Lymph # (Auto) (1.2-3.4) [place] # (Auto) (0.1-0.6) Eos # (Auto) (0.0-0.7) Baso # (Auto) (0.0-2.0) K/mm3 pCO2 (35-45) mm/Hg pO2 73 H (30-55) mm/Hg HCO3 (21-28) mmol/L ABG pH (7.35-7.45) ABG Total CO2 (22-28) mmol.L ABG O2 Saturation (95-98) % ABG O2 Content (15-23) ML/dl ABG Base Excess (-2.0-3.0) mmol/L ABG Hemoglobin (11.7-17.4) g/dL ABG Carboxyhemoglobin (0.5-1.5) % POC ABG HHb (Measured) (0-5) % ABG Methemoglobin (0.0-3.0) % ABG O2 Capacity (16-24) mL/dl ABG Potassium (3.6-5.2) mmol/L VBG pH 7.15 L* (7.32-7.43) VBG pCO2 75.0 H* (40-60) VBG HCO3 26.1 (21-28) mmol/l VBG Total CO2 28.4 H (22-28) mmol.L VBG O2 Sat (Calc) 95.2 H (40-65) % VBG Base Excess -4.4 L (0.0-2.0) mmol/L VBG Potassium 3.5 L (3.6-5.2) mmol/L Hgb O2 Saturation (95.0-98.0) % Sodium 135.0 135 (132-148) mmol/L Chloride 94.0 L 96 L (98-107) mmol/L Glucose 550 H* D (75-110) mg/dl Lactate 3.5 H (0.7-2.1) mmol/L FiO2 21.0 % Potassium 3.7 (3.6-5.0) mmol/L Carbon Dioxide 25 (21-33) mmol/L Anion Gap 18 (10-20) BUN 19 (7-21) mg/dL Creatinine 2.3 H (0.8-1.5) mg/dl Est GFR ( Amer) 38 Est GFR (Non-Af Amer) 31 POC Glucose (mg/dL) (65-110) mg/dL Random Glucose 543 H* D (70-110) mg/dL Calcium 9.2 (8.4-10.5) mg/dL Total Bilirubin 0.3 (0.2-1.3) mg/dL AST 37 (17-59) U/L ALT 38 (7-56) U/L Alkaline Phosphatase 99 (38-126) U/L Troponin I ng/mL Total Protein 7.5 (5.8-8.3) g/dL Albumin 4.3 (3.0-4.8) g/dL Globulin 3.1 gm/dL Albumin/Globulin Ratio 1.4 (1.1-1.8) Amylase 101 (35-125) U/L Lipase 209 (23-300) U/L Arterial Blood Potassium (3.6-5.2) mmol/L Venous Blood Potassium 3.5 L (3.6-5.2) mmol/L Urine Color (YELLOW) Urine Appearance (CLEAR) Urine pH (4.7-8.0) Ur Specific [place] (1.005-1.035) Urine Protein (<30 mg/dL) mg/dL Urine Glucose (UA) (NEGATIVE) mg/dL Urine Ketones (NEGATIVE) mg/dL Urine Blood (NEGATIVE) Urine Nitrate (NEGATIVE) Urine Bilirubin (NEGATIVE) Urine Urobilinogen (<1 E.U./dL) E.U./dL Ur Leukocyte Esterase (NEGATIVE) Abiel/uL Urine RBC (0-2) /hpf Urine WBC (0-6) /hpf Ur Epithelial Cells (0-5) /hpf Urine Bacteria (NEG) Hyaline Casts /hpf Urine Other Urine Opiates Screen (NEGATIVE) Urine Methadone Screen (NEGATIVE) Ur Barbiturates Screen (NEGATIVE) Ur Phencyclidine Scrn (NEGATIVE) Ur Amphetamines Screen (NEGATIVE) U Benzodiazepines Scrn (NEGATIVE) U Oth Cocaine Metabols (NEGATIVE) U Cannabinoids Screen (NEGATIVE) Alcohol, Quantitative (0-10) mg/dL 05/11/18 05/11/18 05/11/18 Range/Units 23:35 23:35 23:23 WBC 17.1 H (4.5-11.0) 10^3/uL RBC 4.88 (3.5-6.1) 10^6/uL Hgb 15.4 (14.0-18.0) g/dL Hct 44.5 (42.0-52.0) % MCV 91.2 D (80.0-105.0) fl MCH 31.6 (25.0-35.0) pg MCHC 34.6 (31.0-37.0) g/dl RDW 13.2 (11.5-14.5) % Plt Count 276 (120.0-450.0) 10^3/uL MPV 10.1 (7.0-11.0) fl Gran % (50.0-68.0) % Lymph % (Auto) (22.0-35.0) % [place] % (Auto) (1.0-6.0) % Eos % (Auto) (1.5-5.0) % Baso % (Auto) (0.0-3.0) % Gran # (1.4-6.5) Lymph # (Auto) (1.2-3.4) [place] # (Auto) (0.1-0.6) Eos # (Auto) (0.0-0.7) Baso # (Auto) (0.0-2.0) K/mm3 pCO2 (35-45) mm/Hg pO2 (30-55) mm/Hg HCO3 (21-28) mmol/L ABG pH (7.35-7.45) ABG Total CO2 (22-28) mmol.L ABG O2 Saturation (95-98) % ABG O2 Content (15-23) ML/dl ABG Base Excess (-2.0-3.0) mmol/L ABG Hemoglobin (11.7-17.4) g/dL ABG Carboxyhemoglobin (0.5-1.5) % POC ABG HHb (Measured) (0-5) % ABG Methemoglobin (0.0-3.0) % ABG O2 Capacity (16-24) mL/dl ABG Potassium (3.6-5.2) mmol/L VBG pH (7.32-7.43) VBG pCO2 (40-60) VBG HCO3 (21-28) mmol/l VBG Total CO2 (22-28) mmol.L VBG O2 Sat (Calc) (40-65) % VBG Base Excess (0.0-2.0) mmol/L VBG Potassium (3.6-5.2) mmol/L Hgb O2 Saturation (95.0-98.0) % Sodium (132-148) mmol/L Chloride (98-107) mmol/L Glucose (75-110) mg/dl Lactate (0.7-2.1) mmol/L FiO2 % Potassium (3.6-5.0) mmol/L Carbon Dioxide (21-33) mmol/L Anion Gap (10-20) BUN (7-21) mg/dL Creatinine (0.8-1.5) mg/dl Est GFR ( Amer) Est GFR (Non-Af Amer) POC Glucose (mg/dL) > 500 H* (65-110) mg/dL Random Glucose (70-110) mg/dL Calcium (8.4-10.5) mg/dL Total Bilirubin (0.2-1.3) mg/dL AST (17-59) U/L ALT (7-56) U/L Alkaline Phosphatase (38-126) U/L Troponin I ng/mL Total Protein (5.8-8.3) g/dL Albumin (3.0-4.8) g/dL Globulin gm/dL Albumin/Globulin Ratio (1.1-1.8) Amylase (35-125) U/L Lipase (23-300) U/L Arterial Blood Potassium (3.6-5.2) mmol/L Venous Blood Potassium (3.6-5.2) mmol/L Urine Color (YELLOW) Urine Appearance (CLEAR) Urine pH (4.7-8.0) Ur Specific [place] (1.005-1.035) Urine Protein (<30 mg/dL) mg/dL Urine Glucose (UA) (NEGATIVE) mg/dL Urine Ketones (NEGATIVE) mg/dL Urine Blood (NEGATIVE) Urine Nitrate (NEGATIVE) Urine Bilirubin (NEGATIVE) Urine Urobilinogen (<1 E.U./dL) E.U./dL Ur Leukocyte Esterase (NEGATIVE) Abiel/uL Urine RBC (0-2) /hpf Urine WBC (0-6) /hpf Ur Epithelial Cells (0-5) /hpf Urine Bacteria (NEG) Hyaline Casts /hpf Urine Other Urine Opiates Screen (NEGATIVE) Urine Methadone Screen (NEGATIVE) Ur Barbiturates Screen (NEGATIVE) Ur Phencyclidine Scrn (NEGATIVE) Ur Amphetamines Screen (NEGATIVE) U Benzodiazepines Scrn (NEGATIVE) U Oth Cocaine Metabols (NEGATIVE) U Cannabinoids Screen (NEGATIVE) Alcohol, Quantitative < 10 (0-10) mg/dL Laboratory Results - last 24 hr 05/11/18 05/11/18 05/11/18 23:23 23:35 23:35 WBC 17.1 H RBC 4.88 Hgb 15.4 Hct 44.5 MCV 91.2 D MCH 31.6 MCHC 34.6 RDW 13.2 Plt Count 276 MPV 10.1 Gran % Lymph % (Auto) [place] % (Auto) Eos % (Auto) Baso % (Auto) Gran # Lymph # (Auto) [place] # (Auto) Eos # (Auto) Baso # (Auto) pCO2 pO2 HCO3 ABG pH ABG Total CO2 ABG O2 Saturation ABG O2 Content ABG Base Excess ABG Hemoglobin ABG Carboxyhemoglobin POC ABG HHb (Measured) ABG Methemoglobin ABG O2 Capacity ABG Potassium VBG pH VBG pCO2 VBG HCO3 VBG Total CO2 VBG O2 Sat (Calc) VBG Base Excess VBG Potassium Hgb O2 Saturation Sodium Chloride Glucose Lactate FiO2 Potassium Carbon Dioxide Anion Gap BUN Creatinine Est GFR ( Amer) Est GFR (Non-Af Amer) POC Glucose (mg/dL) > 500 H* Random Glucose Calcium Total Bilirubin AST ALT Alkaline Phosphatase Troponin I Total Protein Albumin Globulin Albumin/Globulin Ratio Amylase Lipase Arterial Blood Potassium Venous Blood Potassium Urine Color Urine Appearance Urine pH Ur Specific [place] Urine Protein Urine Glucose (UA) Urine Ketones Urine Blood Urine Nitrate Urine Bilirubin Urine Urobilinogen Ur Leukocyte Esterase Urine RBC Urine WBC Ur Epithelial Cells Urine Bacteria Hyaline Casts Urine Other Urine Opiates Screen Urine Methadone Screen Ur Barbiturates Screen Ur Phencyclidine Scrn Ur Amphetamines Screen U Benzodiazepines Scrn U Oth Cocaine Metabols U Cannabinoids Screen Alcohol, Quantitative < 10 05/12/18 05/12/18 05/12/18 00:05 00:05 00:05 WBC RBC Hgb Hct MCV MCH MCHC RDW Plt Count MPV Gran % Lymph % (Auto) [place] % (Auto) Eos % (Auto) Baso % (Auto) Gran # Lymph # (Auto) [place] # (Auto) Eos # (Auto) Baso # (Auto) pCO2 pO2 73 H HCO3 ABG pH ABG Total CO2 ABG O2 Saturation ABG O2 Content ABG Base Excess ABG Hemoglobin ABG Carboxyhemoglobin POC ABG HHb (Measured) ABG Methemoglobin ABG O2 Capacity ABG Potassium VBG pH 7.15 L* VBG pCO2 75.0 H* VBG HCO3 26.1 VBG Total CO2 28.4 H VBG O2 Sat (Calc) 95.2 H VBG Base Excess -4.4 L VBG Potassium 3.5 L Hgb O2 Saturation Sodium 135 135.0 Chloride 96 L 94.0 L Glucose 550 H* D Lactate 3.5 H FiO2 21.0 Potassium 3.7 Carbon Dioxide 25 Anion Gap 18 BUN 19 Creatinine 2.3 H Est GFR ( Amer) 38 Est GFR (Non-Af Amer) 31 POC Glucose (mg/dL) Random Glucose 543 H* D Calcium 9.2 Total Bilirubin 0.3 AST 37 ALT 38 Alkaline Phosphatase 99 Troponin I Total Protein 7.5 Albumin 4.3 Globulin 3.1 Albumin/Globulin Ratio 1.4 Amylase 101 Lipase 209 Arterial Blood Potassium Venous Blood Potassium 3.5 L Urine Color Urine Appearance Urine pH Ur Specific [place] Urine Protein Urine Glucose (UA) Urine Ketones Urine Blood Urine Nitrate Urine Bilirubin Urine Urobilinogen Ur Leukocyte Esterase Urine RBC Urine WBC Ur Epithelial Cells Urine Bacteria Hyaline Casts Urine Other Urine Opiates Screen Urine Methadone Screen Ur Barbiturates Screen Ur Phencyclidine Scrn Ur Amphetamines Screen U Benzodiazepines Scrn U Oth Cocaine Metabols U Cannabinoids Screen Alcohol, Quantitative 05/12/18 05/12/18 05/12/18 00:41 03:58 04:10 WBC RBC Hgb Hct MCV MCH MCHC RDW Plt Count MPV Gran % Lymph % (Auto) [place] % (Auto) Eos % (Auto) Baso % (Auto) Gran # Lymph # (Auto) [place] # (Auto) Eos # (Auto) Baso # (Auto) pCO2 60 H pO2 84.0 HCO3 24.0 ABG pH 7.21 L ABG Total CO2 25.8 ABG O2 Saturation 98.3 H ABG O2 Content 18.4 ABG Base Excess -4.8 L ABG Hemoglobin 13.7 ABG Carboxyhemoglobin 2.6 H POC ABG HHb (Measured) 1.6 ABG Methemoglobin 0.8 ABG O2 Capacity 18.7 ABG Potassium VBG pH VBG pCO2 VBG HCO3 VBG Total CO2 VBG O2 Sat (Calc) VBG Base Excess VBG Potassium Hgb O2 Saturation 95.0 Sodium Chloride Glucose Lactate FiO2 28.0 Potassium Carbon Dioxide Anion Gap BUN Creatinine Est GFR ( Amer) Est GFR (Non-Af Amer) POC Glucose (mg/dL) 358 H Random Glucose Calcium Total Bilirubin AST ALT Alkaline Phosphatase Troponin I Total Protein Albumin Globulin Albumin/Globulin Ratio Amylase Lipase Arterial Blood Potassium Venous Blood Potassium Urine Color Yellow Urine Appearance Clear Urine pH 6.0 Ur Specific [place] 1.020 Urine Protein 30 H Urine Glucose (UA) >=1000 Urine Ketones Negative Urine Blood Small H Urine Nitrate Negative Urine Bilirubin Negative Urine Urobilinogen 0.2 Ur Leukocyte Esterase Negative Urine RBC 1 - 3 Urine WBC 0 - 2 Ur Epithelial Cells 1 - 3 Urine Bacteria Few Hyaline Casts 0 - 2 Urine Other Mucus Urine Opiates Screen Urine Methadone Screen Ur Barbiturates Screen Ur Phencyclidine Scrn Ur Amphetamines Screen U Benzodiazepines Scrn U Oth Cocaine Metabols U Cannabinoids Screen Alcohol, Quantitative 05/12/18 05/12/18 05/12/18 04:10 04:15 04:15 WBC RBC Hgb Hct MCV MCH MCHC RDW Plt Count MPV Gran % Lymph % (Auto) [place] % (Auto) Eos % (Auto) Baso % (Auto) Gran # Lymph # (Auto) [place] # (Auto) Eos # (Auto) Baso # (Auto) pCO2 pO2 91 H HCO3 ABG pH ABG Total CO2 ABG O2 Saturation ABG O2 Content ABG Base Excess ABG Hemoglobin ABG Carboxyhemoglobin POC ABG HHb (Measured) ABG Methemoglobin ABG O2 Capacity ABG Potassium VBG pH 7.21 L VBG pCO2 61.0 H VBG HCO3 24.4 VBG Total CO2 26.3 VBG O2 Sat (Calc) 98.8 H VBG Base Excess -4.5 L VBG Potassium 4.4 Hgb O2 Saturation Sodium 135.0 Chloride 102.0 Glucose 297 H Lactate 1.2 FiO2 21.0 Potassium Carbon Dioxide Anion Gap BUN Creatinine Est GFR ( Amer) Est GFR (Non-Af Amer) POC Glucose (mg/dL) Random Glucose Calcium Total Bilirubin AST ALT Alkaline Phosphatase Troponin I < 0.01 D Total Protein Albumin Globulin Albumin/Globulin Ratio Amylase Lipase Arterial Blood Potassium Venous Blood Potassium 4.4 Urine Color Urine Appearance Urine pH Ur Specific [place] Urine Protein Urine Glucose (UA) Urine Ketones Urine Blood Urine Nitrate Urine Bilirubin Urine Urobilinogen Ur Leukocyte Esterase Urine RBC Urine WBC Ur Epithelial Cells Urine Bacteria Hyaline Casts Urine Other Urine Opiates Screen Positive H Urine Methadone Screen Negative Ur Barbiturates Screen Negative Ur Phencyclidine Scrn Negative Ur Amphetamines Screen Negative U Benzodiazepines Scrn Positive H U Oth Cocaine Metabols Negative U Cannabinoids Screen Negative Alcohol, Quantitative 05/12/18 05/12/18 05/12/18 08:10 08:10 09:15 WBC 10.8 D RBC 4.13 Hgb 12.5 L D Hct 37.5 L MCV 90.8 MCH 30.3 MCHC 33.3 RDW 13.1 Plt Count 220 MPV 9.4 Gran % 67.2 Lymph % (Auto) 26.0 [place] % (Auto) 4.6 Eos % (Auto) 1.7 Baso % (Auto) 0.5 Gran # 7.24 H Lymph # (Auto) 2.8 [place] # (Auto) 0.5 Eos # (Auto) 0.2 Baso # (Auto) 0.05 pCO2 49 H pO2 98.0 HCO3 23.0 ABG pH 7.28 L ABG Total CO2 24.5 ABG O2 Saturation 99.2 H ABG O2 Content ABG Base Excess -4.1 L ABG Hemoglobin ABG Carboxyhemoglobin POC ABG HHb (Measured) ABG Methemoglobin ABG O2 Capacity ABG Potassium 3.6 VBG pH VBG pCO2 VBG HCO3 VBG Total CO2 VBG O2 Sat (Calc) VBG Base Excess VBG Potassium Hgb O2 Saturation Sodium 134 135.0 Chloride 102 104.0 Glucose 187 H Lactate 1.4 FiO2 28.0 Potassium 4.3 Carbon Dioxide 24 Anion Gap 12 BUN 17 Creatinine 1.1 Est GFR ( Amer) > 60 Est GFR (Non-Af Amer) > 60 POC Glucose (mg/dL) Random Glucose 248 H Calcium 8.2 L Total Bilirubin 0.5 AST 31 ALT 33 Alkaline Phosphatase 100 Troponin I Total Protein 6.7 Albumin 3.8 Globulin 3.0 Albumin/Globulin Ratio 1.3 Amylase Lipase Arterial Blood Potassium 3.6 Venous Blood Potassium Urine Color Urine Appearance Urine pH Ur Specific [place] Urine Protein Urine Glucose (UA) Urine Ketones Urine Blood Urine Nitrate Urine Bilirubin Urine Urobilinogen Ur Leukocyte Esterase Urine RBC Urine WBC Ur Epithelial Cells Urine Bacteria Hyaline Casts Urine Other Urine Opiates Screen Urine Methadone Screen Ur Barbiturates Screen Ur Phencyclidine Scrn Ur Amphetamines Screen U Benzodiazepines Scrn U Oth Cocaine Metabols U Cannabinoids Screen Alcohol, Quantitative EKG/Cardiology Studies: Cardiology / EKG Studies 05/12/18 ELECTROCARDIOGRAM Stat Comment: Reason For Exam: ams Fingerstick Blood Sugar Results: 242 Review of Systems - Review of Systems Review of Systems: as per HPI Critical Care Progress Note - Nutrition Nutrition: Nutrition Category Date Time Status Diabetic [Consistent Carbohydrate] [DIET] Diets 05/12/18 Breakfast Ordered Assessment/Plan - Assessment and Plan (Free Text) Assessment: 42 y/o M with PMHx of polysubstance abuse (alcohol, cocaine, and tobacco), gastritis, diabetes, and hypertension admitted for suspected opiate overdose. Pt doesn't recall exactly which drug he used, or how he arrived to the hospital. He received 5 doses of narcan, 2L of NS and was started on narcan drip. He is currently on banana bag, with ativan, ciwa protocol, seizure and aspiration precautions. Plan: Neuro/Psych: AxO x 3 No FND CN 2-12 intact Hx of anxiety Utox + for opiates and benzodiazepines consult psychiatry Hx of ETOH abuse No signs of withdrawal. Most recent CIWA score of 0 Banana bag Ativan 1mg q4h prn Seizure precautions Aspiration precautions Cardiovascular: Normotensive RRR VSS Maintain map >65 Pulm: Lungs CTA SpO2 > 90% on room air ABG improved GI: Tolerating diet Aspiration precautions Abdomen soft, nontender. Normal bowel sounds x 4 quadrants : Pt given 3L NS Currently on banana bag in NS u/a negative Maintain euvolemia ID: Afebrile leukocytosis resolved Endo: Insulin sliding scale maintain euglycemia Dispo: Pt reports no acute complaints. He is tolerated his breakfast, and is not withdrawing. Vital signs are stable, he is hemodynamically stable, and he is saturating well on room air. ABG has improved, leukocytosis resolved. He no longer requires ICU care, and is stable for transfer to remote telemetry. <John Castrejon - Last Filed: 05/12/18 13:54> CCU Objective - Vital Signs / Intake & Output Vital Signs (Last 4 hours): Vital Signs Pulse Resp BP Pulse Ox 05/12/18 11:29 91 H 14 124/75 95 05/12/18 11:20 87 17 96 05/12/18 11:10 88 13 97 05/12/18 11:00 88 9 L 96 05/12/18 10:53 92 H 05/12/18 10:50 85 98 05/12/18 10:40 85 9 L 97 05/12/18 10:30 88 11 L 94 L 05/12/18 10:20 84 21 97 05/12/18 10:10 87 11 L 98 05/12/18 10:00 89 13 98 Intake and Output (Last 8hrs): Intake & Output 05/11/18 05/12/18 05/12/18 22:59 06:59 14:59 Weight 165 lb 153 lb 6 oz Other: Voiding Method Urinal - Medications Active Medications: Active Medications Generic Name Dose Route Start Last Admin Trade Name Freq PRN Reason Stop Dose Admin Enoxaparin Sodium 40 mg 05/12/18 10:00 Lovenox SC DAILY SHARON Protocol Naloxone HCl 2 mg/ Sodium 505 mls @ 1 mls/hr 05/12/18 01:45 05/12/18 02:12 Chloride IV 05/13/18 01:44 1 mls/hr .Q24H ONE Administration Multivitamins/Vitamin C 10 ml/ 1,011.2 mls @ 100 mls/hr 05/12/18 09:04 05/12/18 10:27 Thiamine HCl 100 mg/ Folic IV 05/12/18 19:10 100 mls/hr Acid 1 mg/ Sodium Chloride .[id number] ONE Administration Insulin Human Lispro 0 units 05/12/18 07:30 05/12/18 11:32 Humalog High SC Not Given ACHS SHARON Protocol Lorazepam 1 mg 05/12/18 07:17 Ativan IVP Q4H PRN Anxiety Protocol Pantoprazole Sodium 40 mg 05/12/18 10:00 Protonix Inj IVP DAILY SHARON - Patient Studies Lab Studies: Lab Studies 05/12/18 05/12/18 05/12/18 Range/Units 09:15 08:10 08:10 WBC (4.5-11.0) 10^3/uL RBC (3.5-6.1) 10^6/uL Hgb (14.0-18.0) g/dL Hct (42.0-52.0) % MCV (80.0-105.0) fl MCH (25.0-35.0) pg MCHC (31.0-37.0) g/dl RDW (11.5-14.5) % Plt Count (120.0-450.0) 10^3/uL MPV (7.0-11.0) fl Gran % (50.0-68.0) % Lymph % (Auto) (22.0-35.0) % [place] % (Auto) (1.0-6.0) % Eos % (Auto) (1.5-5.0) % Baso % (Auto) (0.0-3.0) % Gran # (1.4-6.5) Lymph # (Auto) (1.2-3.4) [place] # (Auto) (0.1-0.6) Eos # (Auto) (0.0-0.7) Baso # (Auto) (0.0-2.0) K/mm3 pCO2 49 H (35-45) mm/Hg pO2 98.0 (30-55) mm/Hg HCO3 23.0 (21-28) mmol/L ABG pH 7.28 L (7.35-7.45) ABG Total CO2 24.5 (22-28) mmol.L ABG O2 Saturation 99.2 H (95-98) % ABG O2 Content (15-23) ML/dl ABG Base Excess -4.1 L (-2.0-3.0) mmol/L ABG Hemoglobin (11.7-17.4) g/dL ABG Carboxyhemoglobin (0.5-1.5) % POC ABG HHb (Measured) (0-5) % ABG Methemoglobin (0.0-3.0) % ABG O2 Capacity (16-24) mL/dl ABG Potassium 3.6 (3.6-5.2) mmol/L VBG pH (7.32-7.43) VBG pCO2 (40-60) VBG HCO3 (21-28) mmol/l VBG Total CO2 (22-28) mmol.L VBG O2 Sat (Calc) (40-65) % VBG Base Excess (0.0-2.0) mmol/L VBG Potassium (3.6-5.2) mmol/L Hgb O2 Saturation (95.0-98.0) % Sodium 135.0 134 (132-148) mmol/L Chloride 104.0 102 (98-107) mmol/L Glucose 187 H (75-110) mg/dl Lactate 1.4 (0.7-2.1) mmol/L FiO2 28.0 % Potassium 4.3 (3.6-5.0) mmol/L Carbon Dioxide 24 (21-33) mmol/L Anion Gap 12 (10-20) BUN 17 (7-21) mg/dL Creatinine 1.1 (0.8-1.5) mg/dl Est GFR ( Amer) > 60 Est GFR (Non-Af Amer) > 60 POC Glucose (mg/dL) (65-110) mg/dL Random Glucose 248 H (70-110) mg/dL Hemoglobin A1c 12.3 H (4.2-6.5) % Calcium 8.2 L (8.4-10.5) mg/dL Total Bilirubin 0.5 (0.2-1.3) mg/dL AST 31 (17-59) U/L ALT 33 (7-56) U/L Alkaline Phosphatase 100 (38-126) U/L Troponin I ng/mL Total Protein 6.7 (5.8-8.3) g/dL Albumin 3.8 (3.0-4.8) g/dL Globulin 3.0 gm/dL Albumin/Globulin Ratio 1.3 (1.1-1.8) Amylase (35-125) U/L Lipase (23-300) U/L Procalcitonin (0.19-0.49) NG/ML Arterial Blood Potassium 3.6 (3.6-5.2) mmol/L Venous Blood Potassium (3.6-5.2) mmol/L Urine Color (YELLOW) Urine Appearance (CLEAR) Urine pH (4.7-8.0) Ur Specific [place] (1.005-1.035) Urine Protein (<30 mg/dL) mg/dL Urine Glucose (UA) (NEGATIVE) mg/dL Urine Ketones (NEGATIVE) mg/dL Urine Blood (NEGATIVE) Urine Nitrate (NEGATIVE) Urine Bilirubin (NEGATIVE) Urine Urobilinogen (<1 E.U./dL) E.U./dL Ur Leukocyte Esterase (NEGATIVE) Abiel/uL Urine RBC (0-2) /hpf Urine WBC (0-6) /hpf Ur Epithelial Cells (0-5) /hpf Urine Bacteria (NEG) Hyaline Casts /hpf Urine Other Urine Opiates Screen (NEGATIVE) Urine Methadone Screen (NEGATIVE) Ur Barbiturates Screen (NEGATIVE) Ur Phencyclidine Scrn (NEGATIVE) Ur Amphetamines Screen (NEGATIVE) U Benzodiazepines Scrn (NEGATIVE) U Oth Cocaine Metabols (NEGATIVE) U Cannabinoids Screen (NEGATIVE) Alcohol, Quantitative (0-10) mg/dL 05/12/18 05/12/18 05/12/18 Range/Units 08:10 04:15 04:15 WBC 10.8 D (4.5-11.0) 10^3/uL RBC 4.13 (3.5-6.1) 10^6/uL Hgb 12.5 L D (14.0-18.0) g/dL Hct 37.5 L (42.0-52.0) % MCV 90.8 (80.0-105.0) fl MCH 30.3 (25.0-35.0) pg MCHC 33.3 (31.0-37.0) g/dl RDW 13.1 (11.5-14.5) % Plt Count 220 (120.0-450.0) 10^3/uL MPV 9.4 (7.0-11.0) fl Gran % 67.2 (50.0-68.0) % Lymph % (Auto) 26.0 (22.0-35.0) % [place] % (Auto) 4.6 (1.0-6.0) % Eos % (Auto) 1.7 (1.5-5.0) % Baso % (Auto) 0.5 (0.0-3.0) % Gran # 7.24 H (1.4-6.5) Lymph # (Auto) 2.8 (1.2-3.4) [place] # (Auto) 0.5 (0.1-0.6) Eos # (Auto) 0.2 (0.0-0.7) Baso # (Auto) 0.05 (0.0-2.0) K/mm3 pCO2 (35-45) mm/Hg pO2 91 H (30-55) mm/Hg HCO3 (21-28) mmol/L ABG pH (7.35-7.45) ABG Total CO2 (22-28) mmol.L ABG O2 Saturation (95-98) % ABG O2 Content (15-23) ML/dl ABG Base Excess (-2.0-3.0) mmol/L ABG Hemoglobin (11.7-17.4) g/dL ABG Carboxyhemoglobin (0.5-1.5) % POC ABG HHb (Measured) (0-5) % ABG Methemoglobin (0.0-3.0) % ABG O2 Capacity (16-24) mL/dl ABG Potassium (3.6-5.2) mmol/L VBG pH 7.21 L (7.32-7.43) VBG pCO2 61.0 H (40-60) VBG HCO3 24.4 (21-28) mmol/l VBG Total CO2 26.3 (22-28) mmol.L VBG O2 Sat (Calc) 98.8 H (40-65) % VBG Base Excess -4.5 L (0.0-2.0) mmol/L VBG Potassium 4.4 (3.6-5.2) mmol/L Hgb O2 Saturation (95.0-98.0) % Sodium 135.0 (132-148) mmol/L Chloride 102.0 (98-107) mmol/L Glucose 297 H (75-110) mg/dl Lactate 1.2 (0.7-2.1) mmol/L FiO2 21.0 % Potassium (3.6-5.0) mmol/L Carbon Dioxide (21-33) mmol/L Anion Gap (10-20) BUN (7-21) mg/dL Creatinine (0.8-1.5) mg/dl Est GFR ( Amer) Est GFR (Non-Af Amer) POC Glucose (mg/dL) (65-110) mg/dL Random Glucose (70-110) mg/dL Hemoglobin A1c (4.2-6.5) % Calcium (8.4-10.5) mg/dL Total Bilirubin (0.2-1.3) mg/dL AST (17-59) U/L ALT (7-56) U/L Alkaline Phosphatase (38-126) U/L Troponin I < 0.01 D ng/mL Total Protein (5.8-8.3) g/dL Albumin (3.0-4.8) g/dL Globulin gm/dL Albumin/Globulin Ratio (1.1-1.8) Amylase (35-125) U/L Lipase (23-300) U/L Procalcitonin (0.19-0.49) NG/ML Arterial Blood Potassium (3.6-5.2) mmol/L Venous Blood Potassium 4.4 (3.6-5.2) mmol/L Urine Color (YELLOW) Urine Appearance (CLEAR) Urine pH (4.7-8.0) Ur Specific [place] (1.005-1.035) Urine Protein (<30 mg/dL) mg/dL Urine Glucose (UA) (NEGATIVE) mg/dL Urine Ketones (NEGATIVE) mg/dL Urine Blood (NEGATIVE) Urine Nitrate (NEGATIVE) Urine Bilirubin (NEGATIVE) Urine Urobilinogen (<1 E.U./dL) E.U./dL Ur Leukocyte Esterase (NEGATIVE) Abiel/uL Urine RBC (0-2) /hpf Urine WBC (0-6) /hpf Ur Epithelial Cells (0-5) /hpf Urine Bacteria (NEG) Hyaline Casts /hpf Urine Other Urine Opiates Screen (NEGATIVE) Urine Methadone Screen (NEGATIVE) Ur Barbiturates Screen (NEGATIVE) Ur Phencyclidine Scrn (NEGATIVE) Ur Amphetamines Screen (NEGATIVE) U Benzodiazepines Scrn (NEGATIVE) U Oth Cocaine Metabols (NEGATIVE) U Cannabinoids Screen (NEGATIVE) Alcohol, Quantitative (0-10) mg/dL 05/12/18 05/12/18 05/12/18 Range/Units 04:10 04:10 03:58 WBC (4.5-11.0) 10^3/uL RBC (3.5-6.1) 10^6/uL Hgb (14.0-18.0) g/dL Hct (42.0-52.0) % MCV (80.0-105.0) fl MCH (25.0-35.0) pg MCHC (31.0-37.0) g/dl RDW (11.5-14.5) % Plt Count (120.0-450.0) 10^3/uL MPV (7.0-11.0) fl Gran % (50.0-68.0) % Lymph % (Auto) (22.0-35.0) % [place] % (Auto) (1.0-6.0) % Eos % (Auto) (1.5-5.0) % Baso % (Auto) (0.0-3.0) % Gran # (1.4-6.5) Lymph # (Auto) (1.2-3.4) [place] # (Auto) (0.1-0.6) Eos # (Auto) (0.0-0.7) Baso # (Auto) (0.0-2.0) K/mm3 pCO2 60 H (35-45) mm/Hg pO2 84.0 (30-55) mm/Hg HCO3 24.0 (21-28) mmol/L ABG pH 7.21 L (7.35-7.45) ABG Total CO2 25.8 (22-28) mmol.L ABG O2 Saturation 98.3 H (95-98) % ABG O2 Content 18.4 (15-23) ML/dl ABG Base Excess -4.8 L (-2.0-3.0) mmol/L ABG Hemoglobin 13.7 (11.7-17.4) g/dL ABG Carboxyhemoglobin 2.6 H (0.5-1.5) % POC ABG HHb (Measured) 1.6 (0-5) % ABG Methemoglobin 0.8 (0.0-3.0) % ABG O2 Capacity 18.7 (16-24) mL/dl ABG Potassium (3.6-5.2) mmol/L VBG pH (7.32-7.43) VBG pCO2 (40-60) VBG HCO3 (21-28) mmol/l VBG Total CO2 (22-28) mmol.L VBG O2 Sat (Calc) (40-65) % VBG Base Excess (0.0-2.0) mmol/L VBG Potassium (3.6-5.2) mmol/L Hgb O2 Saturation 95.0 (95.0-98.0) % Sodium (132-148) mmol/L Chloride (98-107) mmol/L Glucose (75-110) mg/dl Lactate (0.7-2.1) mmol/L FiO2 28.0 % Potassium (3.6-5.0) mmol/L Carbon Dioxide (21-33) mmol/L Anion Gap (10-20) BUN (7-21) mg/dL Creatinine (0.8-1.5) mg/dl Est GFR ( Amer) Est GFR (Non-Af Amer) POC Glucose (mg/dL) (65-110) mg/dL Random Glucose (70-110) mg/dL Hemoglobin A1c (4.2-6.5) % Calcium (8.4-10.5) mg/dL Total Bilirubin (0.2-1.3) mg/dL AST (17-59) U/L ALT (7-56) U/L Alkaline Phosphatase (38-126) U/L Troponin I ng/mL Total Protein (5.8-8.3) g/dL Albumin (3.0-4.8) g/dL Globulin gm/dL Albumin/Globulin Ratio (1.1-1.8) Amylase (35-125) U/L Lipase (23-300) U/L Procalcitonin (0.19-0.49) NG/ML Arterial Blood Potassium (3.6-5.2) mmol/L Venous Blood Potassium (3.6-5.2) mmol/L Urine Color Yellow (YELLOW) Urine Appearance Clear (CLEAR) Urine pH 6.0 (4.7-8.0) Ur Specific [place] 1.020 (1.005-1.035) Urine Protein 30 H (<30 mg/dL) mg/dL Urine Glucose (UA) >=1000 (NEGATIVE) mg/dL Urine Ketones Negative (NEGATIVE) mg/dL Urine Blood Small H (NEGATIVE) Urine Nitrate Negative (NEGATIVE) Urine Bilirubin Negative (NEGATIVE) Urine Urobilinogen 0.2 (<1 E.U./dL) E.U./dL Ur Leukocyte Esterase Negative (NEGATIVE) Abiel/uL Urine RBC 1 - 3 (0-2) /hpf Urine WBC 0 - 2 (0-6) /hpf Ur Epithelial Cells 1 - 3 (0-5) /hpf Urine Bacteria Few (NEG) Hyaline Casts 0 - 2 /hpf Urine Other Mucus Urine Opiates Screen Positive H (NEGATIVE) Urine Methadone Screen Negative (NEGATIVE) Ur Barbiturates Screen Negative (NEGATIVE) Ur Phencyclidine Scrn Negative (NEGATIVE) Ur Amphetamines Screen Negative (NEGATIVE) U Benzodiazepines Scrn Positive H (NEGATIVE) U Oth Cocaine Metabols Negative (NEGATIVE) U Cannabinoids Screen Negative (NEGATIVE) Alcohol, Quantitative (0-10) mg/dL 05/12/18 05/12/18 05/12/18 Range/Units 00:41 00:05 00:05 WBC (4.5-11.0) 10^3/uL RBC (3.5-6.1) 10^6/uL Hgb (14.0-18.0) g/dL Hct (42.0-52.0) % MCV (80.0-105.0) fl MCH (25.0-35.0) pg MCHC (31.0-37.0) g/dl RDW (11.5-14.5) % Plt Count (120.0-450.0) 10^3/uL MPV (7.0-11.0) fl Gran % (50.0-68.0) % Lymph % (Auto) (22.0-35.0) % [place] % (Auto) (1.0-6.0) % Eos % (Auto) (1.5-5.0) % Baso % (Auto) (0.0-3.0) % Gran # (1.4-6.5) Lymph # (Auto) (1.2-3.4) [place] # (Auto) (0.1-0.6) Eos # (Auto) (0.0-0.7) Baso # (Auto) (0.0-2.0) K/mm3 pCO2 (35-45) mm/Hg pO2 (30-55) mm/Hg HCO3 (21-28) mmol/L ABG pH (7.35-7.45) ABG Total CO2 (22-28) mmol.L ABG O2 Saturation (95-98) % ABG O2 Content (15-23) ML/dl ABG Base Excess (-2.0-3.0) mmol/L ABG Hemoglobin (11.7-17.4) g/dL ABG Carboxyhemoglobin (0.5-1.5) % POC ABG HHb (Measured) (0-5) % ABG Methemoglobin (0.0-3.0) % ABG O2 Capacity (16-24) mL/dl ABG Potassium (3.6-5.2) mmol/L VBG pH (7.32-7.43) VBG pCO2 (40-60) VBG HCO3 (21-28) mmol/l VBG Total CO2 (22-28) mmol.L VBG O2 Sat (Calc) (40-65) % VBG Base Excess (0.0-2.0) mmol/L VBG Potassium (3.6-5.2) mmol/L Hgb O2 Saturation (95.0-98.0) % Sodium (132-148) mmol/L Chloride (98-107) mmol/L Glucose (75-110) mg/dl Lactate (0.7-2.1) mmol/L FiO2 % Potassium (3.6-5.0) mmol/L Carbon Dioxide (21-33) mmol/L Anion Gap (10-20) BUN (7-21) mg/dL Creatinine (0.8-1.5) mg/dl Est GFR ( Amer) Est GFR (Non-Af Amer) POC Glucose (mg/dL) 358 H (65-110) mg/dL Random Glucose (70-110) mg/dL Hemoglobin A1c (4.2-6.5) % Calcium (8.4-10.5) mg/dL Total Bilirubin (0.2-1.3) mg/dL AST (17-59) U/L ALT (7-56) U/L Alkaline Phosphatase (38-126) U/L Troponin I ng/mL Total Protein (5.8-8.3) g/dL Albumin (3.0-4.8) g/dL Globulin gm/dL Albumin/Globulin Ratio (1.1-1.8) Amylase 101 (35-125) U/L Lipase 209 (23-300) U/L Procalcitonin 0.10 L (0.19-0.49) NG/ML Arterial Blood Potassium (3.6-5.2) mmol/L Venous Blood Potassium (3.6-5.2) mmol/L Urine Color (YELLOW) Urine Appearance (CLEAR) Urine pH (4.7-8.0) Ur Specific [place] (1.005-1.035) Urine Protein (<30 mg/dL) mg/dL Urine Glucose (UA) (NEGATIVE) mg/dL Urine Ketones (NEGATIVE) mg/dL Urine Blood (NEGATIVE) Urine Nitrate (NEGATIVE) Urine Bilirubin (NEGATIVE) Urine Urobilinogen (<1 E.U./dL) E.U./dL Ur Leukocyte Esterase (NEGATIVE) Abiel/uL Urine RBC (0-2) /hpf Urine WBC (0-6) /hpf Ur Epithelial Cells (0-5) /hpf Urine Bacteria (NEG) Hyaline Casts /hpf Urine Other Urine Opiates Screen (NEGATIVE) Urine Methadone Screen (NEGATIVE) Ur Barbiturates Screen (NEGATIVE) Ur Phencyclidine Scrn (NEGATIVE) Ur Amphetamines Screen (NEGATIVE) U Benzodiazepines Scrn (NEGATIVE) U Oth Cocaine Metabols (NEGATIVE) U Cannabinoids Screen (NEGATIVE) Alcohol, Quantitative (0-10) mg/dL 05/12/18 05/12/18 05/11/18 Range/Units 00:05 00:05 23:35 WBC 17.1 H (4.5-11.0) 10^3/uL RBC 4.88 (3.5-6.1) 10^6/uL Hgb 15.4 (14.0-18.0) g/dL Hct 44.5 (42.0-52.0) % MCV 91.2 D (80.0-105.0) fl MCH 31.6 (25.0-35.0) pg MCHC 34.6 (31.0-37.0) g/dl RDW 13.2 (11.5-14.5) % Plt Count 276 (120.0-450.0) 10^3/uL MPV 10.1 (7.0-11.0) fl Gran % (50.0-68.0) % Lymph % (Auto) (22.0-35.0) % [place] % (Auto) (1.0-6.0) % Eos % (Auto) (1.5-5.0) % Baso % (Auto) (0.0-3.0) % Gran # (1.4-6.5) Lymph # (Auto) (1.2-3.4) [place] # (Auto) (0.1-0.6) Eos # (Auto) (0.0-0.7) Baso # (Auto) (0.0-2.0) K/mm3 pCO2 (35-45) mm/Hg pO2 73 H (30-55) mm/Hg HCO3 (21-28) mmol/L ABG pH (7.35-7.45) ABG Total CO2 (22-28) mmol.L ABG O2 Saturation (95-98) % ABG O2 Content (15-23) ML/dl ABG Base Excess (-2.0-3.0) mmol/L ABG Hemoglobin (11.7-17.4) g/dL ABG Carboxyhemoglobin (0.5-1.5) % POC ABG HHb (Measured) (0-5) % ABG Methemoglobin (0.0-3.0) % ABG O2 Capacity (16-24) mL/dl ABG Potassium (3.6-5.2) mmol/L VBG pH 7.15 L* (7.32-7.43) VBG pCO2 75.0 H* (40-60) VBG HCO3 26.1 (21-28) mmol/l VBG Total CO2 28.4 H (22-28) mmol.L VBG O2 Sat (Calc) 95.2 H (40-65) % VBG Base Excess -4.4 L (0.0-2.0) mmol/L VBG Potassium 3.5 L (3.6-5.2) mmol/L Hgb O2 Saturation (95.0-98.0) % Sodium 135.0 135 (132-148) mmol/L Chloride 94.0 L 96 L (98-107) mmol/L Glucose 550 H* D (75-110) mg/dl Lactate 3.5 H (0.7-2.1) mmol/L FiO2 21.0 % Potassium 3.7 (3.6-5.0) mmol/L Carbon Dioxide 25 (21-33) mmol/L Anion Gap 18 (10-20) BUN 19 (7-21) mg/dL Creatinine 2.3 H (0.8-1.5) mg/dl Est GFR ( Amer) 38 Est GFR (Non-Af Amer) 31 POC Glucose (mg/dL) (65-110) mg/dL Random Glucose 543 H* D (70-110) mg/dL Hemoglobin A1c (4.2-6.5) % Calcium 9.2 (8.4-10.5) mg/dL Total Bilirubin 0.3 (0.2-1.3) mg/dL AST 37 (17-59) U/L ALT 38 (7-56) U/L Alkaline Phosphatase 99 (38-126) U/L Troponin I ng/mL Total Protein 7.5 (5.8-8.3) g/dL Albumin 4.3 (3.0-4.8) g/dL Globulin 3.1 gm/dL Albumin/Globulin Ratio 1.4 (1.1-1.8) Amylase (35-125) U/L Lipase (23-300) U/L Procalcitonin (0.19-0.49) NG/ML Arterial Blood Potassium (3.6-5.2) mmol/L Venous Blood Potassium 3.5 L (3.6-5.2) mmol/L Urine Color (YELLOW) Urine Appearance (CLEAR) Urine pH (4.7-8.0) Ur Specific [place] (1.005-1.035) Urine Protein (<30 mg/dL) mg/dL Urine Glucose (UA) (NEGATIVE) mg/dL Urine Ketones (NEGATIVE) mg/dL Urine Blood (NEGATIVE) Urine Nitrate (NEGATIVE) Urine Bilirubin (NEGATIVE) Urine Urobilinogen (<1 E.U./dL) E.U./dL Ur Leukocyte Esterase (NEGATIVE) Abiel/uL Urine RBC (0-2) /hpf Urine WBC (0-6) /hpf Ur Epithelial Cells (0-5) /hpf Urine Bacteria (NEG) Hyaline Casts /hpf Urine Other Urine Opiates Screen (NEGATIVE) Urine Methadone Screen (NEGATIVE) Ur Barbiturates Screen (NEGATIVE) Ur Phencyclidine Scrn (NEGATIVE) Ur Amphetamines Screen (NEGATIVE) U Benzodiazepines Scrn (NEGATIVE) U Oth Cocaine Metabols (NEGATIVE) U Cannabinoids Screen (NEGATIVE) Alcohol, Quantitative (0-10) mg/dL 05/11/18 05/11/18 Range/Units 23:35 23:23 WBC (4.5-11.0) 10^3/uL RBC (3.5-6.1) 10^6/uL Hgb (14.0-18.0) g/dL Hct (42.0-52.0) % MCV (80.0-105.0) fl MCH (25.0-35.0) pg MCHC (31.0-37.0) g/dl RDW (11.5-14.5) % Plt Count (120.0-450.0) 10^3/uL MPV (7.0-11.0) fl Gran % (50.0-68.0) % Lymph % (Auto) (22.0-35.0) % [place] % (Auto) (1.0-6.0) % Eos % (Auto) (1.5-5.0) % Baso % (Auto) (0.0-3.0) % Gran # (1.4-6.5) Lymph # (Auto) (1.2-3.4) [place] # (Auto) (0.1-0.6) Eos # (Auto) (0.0-0.7) Baso # (Auto) (0.0-2.0) K/mm3 pCO2 (35-45) mm/Hg pO2 (30-55) mm/Hg HCO3 (21-28) mmol/L ABG pH (7.35-7.45) ABG Total CO2 (22-28) mmol.L ABG O2 Saturation (95-98) % ABG O2 Content (15-23) ML/dl ABG Base Excess (-2.0-3.0) mmol/L ABG Hemoglobin (11.7-17.4) g/dL ABG Carboxyhemoglobin (0.5-1.5) % POC ABG HHb (Measured) (0-5) % ABG Methemoglobin (0.0-3.0) % ABG O2 Capacity (16-24) mL/dl ABG Potassium (3.6-5.2) mmol/L VBG pH (7.32-7.43) VBG pCO2 (40-60) VBG HCO3 (21-28) mmol/l VBG Total CO2 (22-28) mmol.L VBG O2 Sat (Calc) (40-65) % VBG Base Excess (0.0-2.0) mmol/L VBG Potassium (3.6-5.2) mmol/L Hgb O2 Saturation (95.0-98.0) % Sodium (132-148) mmol/L Chloride (98-107) mmol/L Glucose (75-110) mg/dl Lactate (0.7-2.1) mmol/L FiO2 % Potassium (3.6-5.0) mmol/L Carbon Dioxide (21-33) mmol/L Anion Gap (10-20) BUN (7-21) mg/dL Creatinine (0.8-1.5) mg/dl Est GFR ( Amer) Est GFR (Non-Af Amer) POC Glucose (mg/dL) > 500 H* (65-110) mg/dL Random Glucose (70-110) mg/dL Hemoglobin A1c (4.2-6.5) % Calcium (8.4-10.5) mg/dL Total Bilirubin (0.2-1.3) mg/dL AST (17-59) U/L ALT (7-56) U/L Alkaline Phosphatase (38-126) U/L Troponin I ng/mL Total Protein (5.8-8.3) g/dL Albumin (3.0-4.8) g/dL Globulin gm/dL Albumin/Globulin Ratio (1.1-1.8) Amylase (35-125) U/L Lipase (23-300) U/L Procalcitonin (0.19-0.49) NG/ML Arterial Blood Potassium (3.6-5.2) mmol/L Venous Blood Potassium (3.6-5.2) mmol/L Urine Color (YELLOW) Urine Appearance (CLEAR) Urine pH (4.7-8.0) Ur Specific [place] (1.005-1.035) Urine Protein (<30 mg/dL) mg/dL Urine Glucose (UA) (NEGATIVE) mg/dL Urine Ketones (NEGATIVE) mg/dL Urine Blood (NEGATIVE) Urine Nitrate (NEGATIVE) Urine Bilirubin (NEGATIVE) Urine Urobilinogen (<1 E.U./dL) E.U./dL Ur Leukocyte Esterase (NEGATIVE) Abiel/uL Urine RBC (0-2) /hpf Urine WBC (0-6) /hpf Ur Epithelial Cells (0-5) /hpf Urine Bacteria (NEG) Hyaline Casts /hpf Urine Other Urine Opiates Screen (NEGATIVE) Urine Methadone Screen (NEGATIVE) Ur Barbiturates Screen (NEGATIVE) Ur Phencyclidine Scrn (NEGATIVE) Ur Amphetamines Screen (NEGATIVE) U Benzodiazepines Scrn (NEGATIVE) U Oth Cocaine Metabols (NEGATIVE) U Cannabinoids Screen (NEGATIVE) Alcohol, Quantitative < 10 (0-10) mg/dL Laboratory Results - last 24 hr 05/11/18 05/11/18 05/11/18 23:23 23:35 23:35 WBC 17.1 H RBC 4.88 Hgb 15.4 Hct 44.5 MCV 91.2 D MCH 31.6 MCHC 34.6 RDW 13.2 Plt Count 276 MPV 10.1 Gran % Lymph % (Auto) [place] % (Auto) Eos % (Auto) Baso % (Auto) Gran # Lymph # (Auto) [place] # (Auto) Eos # (Auto) Baso # (Auto) pCO2 pO2 HCO3 ABG pH ABG Total CO2 ABG O2 Saturation ABG O2 Content ABG Base Excess ABG Hemoglobin ABG Carboxyhemoglobin POC ABG HHb (Measured) ABG Methemoglobin ABG O2 Capacity ABG Potassium VBG pH VBG pCO2 VBG HCO3 VBG Total CO2 VBG O2 Sat (Calc) VBG Base Excess VBG Potassium Hgb O2 Saturation Sodium Chloride Glucose Lactate FiO2 Potassium Carbon Dioxide Anion Gap BUN Creatinine Est GFR ( Amer) Est GFR (Non-Af Amer) POC Glucose (mg/dL) > 500 H* Random Glucose Hemoglobin A1c Calcium Total Bilirubin AST ALT Alkaline Phosphatase Troponin I Total Protein Albumin Globulin Albumin/Globulin Ratio Amylase Lipase Procalcitonin Arterial Blood Potassium Venous Blood Potassium Urine Color Urine Appearance Urine pH Ur Specific [place] Urine Protein Urine Glucose (UA) Urine Ketones Urine Blood Urine Nitrate Urine Bilirubin Urine Urobilinogen Ur Leukocyte Esterase Urine RBC Urine WBC Ur Epithelial Cells Urine Bacteria Hyaline Casts Urine Other Urine Opiates Screen Urine Methadone Screen Ur Barbiturates Screen Ur Phencyclidine Scrn Ur Amphetamines Screen U Benzodiazepines Scrn U Oth Cocaine Metabols U Cannabinoids Screen Alcohol, Quantitative < 10 05/12/18 05/12/18 05/12/18 00:05 00:05 00:05 WBC RBC Hgb Hct MCV MCH MCHC RDW Plt Count MPV Gran % Lymph % (Auto) [place] % (Auto) Eos % (Auto) Baso % (Auto) Gran # Lymph # (Auto) [place] # (Auto) Eos # (Auto) Baso # (Auto) pCO2 pO2 73 H HCO3 ABG pH ABG Total CO2 ABG O2 Saturation ABG O2 Content ABG Base Excess ABG Hemoglobin ABG Carboxyhemoglobin POC ABG HHb (Measured) ABG Methemoglobin ABG O2 Capacity ABG Potassium VBG pH 7.15 L* VBG pCO2 75.0 H* VBG HCO3 26.1 VBG Total CO2 28.4 H VBG O2 Sat (Calc) 95.2 H VBG Base Excess -4.4 L VBG Potassium 3.5 L Hgb O2 Saturation Sodium 135 135.0 Chloride 96 L 94.0 L Glucose 550 H* D Lactate 3.5 H FiO2 21.0 Potassium 3.7 Carbon Dioxide 25 Anion Gap 18 BUN 19 Creatinine 2.3 H Est GFR ( Amer) 38 Est GFR (Non-Af Amer) 31 POC Glucose (mg/dL) Random Glucose 543 H* D Hemoglobin A1c Calcium 9.2 Total Bilirubin 0.3 AST 37 ALT 38 Alkaline Phosphatase 99 Troponin I Total Protein 7.5 Albumin 4.3 Globulin 3.1 Albumin/Globulin Ratio 1.4 Amylase 101 Lipase 209 Procalcitonin Arterial Blood Potassium Venous Blood Potassium 3.5 L Urine Color Urine Appearance Urine pH Ur Specific [place] Urine Protein Urine Glucose (UA) Urine Ketones Urine Blood Urine Nitrate Urine Bilirubin Urine Urobilinogen Ur Leukocyte Esterase Urine RBC Urine WBC Ur Epithelial Cells Urine Bacteria Hyaline Casts Urine Other Urine Opiates Screen Urine Methadone Screen Ur Barbiturates Screen Ur Phencyclidine Scrn Ur Amphetamines Screen U Benzodiazepines Scrn U Oth Cocaine Metabols U Cannabinoids Screen Alcohol, Quantitative 05/12/18 05/12/18 05/12/18 00:05 00:41 03:58 WBC RBC Hgb Hct MCV MCH MCHC RDW Plt Count MPV Gran % Lymph % (Auto) [place] % (Auto) Eos % (Auto) Baso % (Auto) Gran # Lymph # (Auto) [place] # (Auto) Eos # (Auto) Baso # (Auto) pCO2 60 H pO2 84.0 HCO3 24.0 ABG pH 7.21 L ABG Total CO2 25.8 ABG O2 Saturation 98.3 H ABG O2 Content 18.4 ABG Base Excess -4.8 L ABG Hemoglobin 13.7 ABG Carboxyhemoglobin 2.6 H POC ABG HHb (Measured) 1.6 ABG Methemoglobin 0.8 ABG O2 Capacity 18.7 ABG Potassium VBG pH VBG pCO2 VBG HCO3 VBG Total CO2 VBG O2 Sat (Calc) VBG Base Excess VBG Potassium Hgb O2 Saturation 95.0 Sodium Chloride Glucose Lactate FiO2 28.0 Potassium Carbon Dioxide Anion Gap BUN Creatinine Est GFR ( Amer) Est GFR (Non-Af Amer) POC Glucose (mg/dL) 358 H Random Glucose Hemoglobin A1c Calcium Total Bilirubin AST ALT Alkaline Phosphatase Troponin I Total Protein Albumin Globulin Albumin/Globulin Ratio Amylase Lipase Procalcitonin 0.10 L Arterial Blood Potassium Venous Blood Potassium Urine Color Urine Appearance Urine pH Ur Specific [place] Urine Protein Urine Glucose (UA) Urine Ketones Urine Blood Urine Nitrate Urine Bilirubin Urine Urobilinogen Ur Leukocyte Esterase Urine RBC Urine WBC Ur Epithelial Cells Urine Bacteria Hyaline Casts Urine Other Urine Opiates Screen Urine Methadone Screen Ur Barbiturates Screen Ur Phencyclidine Scrn Ur Amphetamines Screen U Benzodiazepines Scrn U Oth Cocaine Metabols U Cannabinoids Screen Alcohol, Quantitative 05/12/18 05/12/18 05/12/18 04:10 04:10 04:15 WBC RBC Hgb Hct MCV MCH MCHC RDW Plt Count MPV Gran % Lymph % (Auto) [place] % (Auto) Eos % (Auto) Baso % (Auto) Gran # Lymph # (Auto) [place] # (Auto) Eos # (Auto) Baso # (Auto) pCO2 pO2 91 H HCO3 ABG pH ABG Total CO2 ABG O2 Saturation ABG O2 Content ABG Base Excess ABG Hemoglobin ABG Carboxyhemoglobin POC ABG HHb (Measured) ABG Methemoglobin ABG O2 Capacity ABG Potassium VBG pH 7.21 L VBG pCO2 61.0 H VBG HCO3 24.4 VBG Total CO2 26.3 VBG O2 Sat (Calc) 98.8 H VBG Base Excess -4.5 L VBG Potassium 4.4 Hgb O2 Saturation Sodium 135.0 Chloride 102.0 Glucose 297 H Lactate 1.2 FiO2 21.0 Potassium Carbon Dioxide Anion Gap BUN Creatinine Est GFR ( Amer) Est GFR (Non-Af Amer) POC Glucose (mg/dL) Random Glucose Hemoglobin A1c Calcium Total Bilirubin AST ALT Alkaline Phosphatase Troponin I Total Protein Albumin Globulin Albumin/Globulin Ratio Amylase Lipase Procalcitonin Arterial Blood Potassium Venous Blood Potassium 4.4 Urine Color Yellow Urine Appearance Clear Urine pH 6.0 Ur Specific [place] 1.020 Urine Protein 30 H Urine Glucose (UA) >=1000 Urine Ketones Negative Urine Blood Small H Urine Nitrate Negative Urine Bilirubin Negative Urine Urobilinogen 0.2 Ur Leukocyte Esterase Negative Urine RBC 1 - 3 Urine WBC 0 - 2 Ur Epithelial Cells 1 - 3 Urine Bacteria Few Hyaline Casts 0 - 2 Urine Other Mucus Urine Opiates Screen Positive H Urine Methadone Screen Negative Ur Barbiturates Screen Negative Ur Phencyclidine Scrn Negative Ur Amphetamines Screen Negative U Benzodiazepines Scrn Positive H U Oth Cocaine Metabols Negative U Cannabinoids Screen Negative Alcohol, Quantitative 05/12/18 05/12/18 05/12/18 04:15 08:10 08:10 WBC 10.8 D RBC 4.13 Hgb 12.5 L D Hct 37.5 L MCV 90.8 MCH 30.3 MCHC 33.3 RDW 13.1 Plt Count 220 MPV 9.4 Gran % 67.2 Lymph % (Auto) 26.0 [place] % (Auto) 4.6 Eos % (Auto) 1.7 Baso % (Auto) 0.5 Gran # 7.24 H Lymph # (Auto) 2.8 [place] # (Auto) 0.5 Eos # (Auto) 0.2 Baso # (Auto) 0.05 pCO2 pO2 HCO3 ABG pH ABG Total CO2 ABG O2 Saturation ABG O2 Content ABG Base Excess ABG Hemoglobin ABG Carboxyhemoglobin POC ABG HHb (Measured) ABG Methemoglobin ABG O2 Capacity ABG Potassium VBG pH VBG pCO2 VBG HCO3 VBG Total CO2 VBG O2 Sat (Calc) VBG Base Excess VBG Potassium Hgb O2 Saturation Sodium 134 Chloride 102 Glucose Lactate FiO2 Potassium 4.3 Carbon Dioxide 24 Anion Gap 12 BUN 17 Creatinine 1.1 Est GFR ( Amer) > 60 Est GFR (Non-Af Amer) > 60 POC Glucose (mg/dL) Random Glucose 248 H Hemoglobin A1c Calcium 8.2 L Total Bilirubin 0.5 AST 31 ALT 33 Alkaline Phosphatase 100 Troponin I < 0.01 D Total Protein 6.7 Albumin 3.8 Globulin 3.0 Albumin/Globulin Ratio 1.3 Amylase Lipase Procalcitonin Arterial Blood Potassium Venous Blood Potassium Urine Color Urine Appearance Urine pH Ur Specific [place] Urine Protein Urine Glucose (UA) Urine Ketones Urine Blood Urine Nitrate Urine Bilirubin Urine Urobilinogen Ur Leukocyte Esterase Urine RBC Urine WBC Ur Epithelial Cells Urine Bacteria Hyaline Casts Urine Other Urine Opiates Screen Urine Methadone Screen Ur Barbiturates Screen Ur Phencyclidine Scrn Ur Amphetamines Screen U Benzodiazepines Scrn U Oth Cocaine Metabols U Cannabinoids Screen Alcohol, Quantitative 05/12/18 05/12/18 08:10 09:15 WBC RBC Hgb Hct MCV MCH MCHC RDW Plt Count MPV Gran % Lymph % (Auto) [place] % (Auto) Eos % (Auto) Baso % (Auto) Gran # Lymph # (Auto) [place] # (Auto) Eos # (Auto) Baso # (Auto) pCO2 49 H pO2 98.0 HCO3 23.0 ABG pH 7.28 L ABG Total CO2 24.5 ABG O2 Saturation 99.2 H ABG O2 Content ABG Base Excess -4.1 L ABG Hemoglobin ABG Carboxyhemoglobin POC ABG HHb (Measured) ABG Methemoglobin ABG O2 Capacity ABG Potassium 3.6 VBG pH VBG pCO2 VBG HCO3 VBG Total CO2 VBG O2 Sat (Calc) VBG Base Excess VBG Potassium Hgb O2 Saturation Sodium 135.0 Chloride 104.0 Glucose 187 H Lactate 1.4 FiO2 28.0 Potassium Carbon Dioxide Anion Gap BUN Creatinine Est GFR ( Amer) Est GFR (Non-Af Amer) POC Glucose (mg/dL) Random Glucose Hemoglobin A1c 12.3 H Calcium Total Bilirubin AST ALT Alkaline Phosphatase Troponin I Total Protein Albumin Globulin Albumin/Globulin Ratio Amylase Lipase Procalcitonin Arterial Blood Potassium 3.6 Venous Blood Potassium Urine Color Urine Appearance Urine pH Ur Specific [place] Urine Protein Urine Glucose (UA) Urine Ketones Urine Blood Urine Nitrate Urine Bilirubin Urine Urobilinogen Ur Leukocyte Esterase Urine RBC Urine WBC Ur Epithelial Cells Urine Bacteria Hyaline Casts Urine Other Urine Opiates Screen Urine Methadone Screen Ur Barbiturates Screen Ur Phencyclidine Scrn Ur Amphetamines Screen U Benzodiazepines Scrn U Oth Cocaine Metabols U Cannabinoids Screen Alcohol, Quantitative EKG/Cardiology Studies: Cardiology / EKG Studies 05/12/18 ELECTROCARDIOGRAM Stat Comment: Reason For Exam: ams Critical Care Progress Note - Nutrition Nutrition: Nutrition Category Date Time Status Diabetic [Consistent Carbohydrate] [DIET] Diets 05/12/18 Breakfast Ordered Assessment/Plan - Assessment and Plan (Free Text) Plan: Patient seen and examined on rounds, with resident, agree with note with following additions/exceptions: Patient is 42yo male with PMHx of polysubstance abuse (alcohol, cocaine, and tobacco), gastritis, diabetes, and hypertension admitted for suspected opiate overdose. Pt was briefly on Narcan drip, which has since been turned off Currently afebrile, BP stable, comfortable in NAD, AAOx3, doing well, having breakfast Admits to taking "pain medicine" Labs, imaging, chart reviewed ABG with improved resp acidosis Opiate overdose DM HTN Polysubstance Abuse Resp acidosis Recommend: - supp o2 as needed, goal sat 90%, dueonebs PRN, Nicotine Patch - would hold off abx for now - panculture, UCx, BCx, Procal - IVF - Monitor for withdrawal, opiate, EtOH - Ativan PRN - CIWA protocol - Thiamine, Folic Acid, MVT - FS control - Check HgbA1C - CHeck TSH - Psych consult - GI ppx - DVT ppx - STABLE, transfer to remote tele
--- NOTE | 2018-05-12 11:14 | RAD ---
Date of service: 05/12/2018 PROCEDURE: CHEST RADIOGRAPH, 1 VIEW HISTORY: medical clearance COMPARISON: 02/24/2017 FINDINGS: LUNGS: Clear. PLEURA: No pneumothorax or pleural fluid seen. CARDIOVASCULAR: Normal. OSSEOUS STRUCTURES: No significant abnormalities. VISUALIZED UPPER ABDOMEN: Normal. OTHER FINDINGS: None. IMPRESSION: No active disease.
[2018-05-12 16:04] LABS: HEPATITIS B SURFACE AG Negative (NEGATIVE)
[2018-05-12 16:10] LABS: HEPATITIS A IGM NEGATIVE (NEGATIVE); HEPATITIS B CORE AB NEGATIVE (NEGATIVE)
[2018-05-12 16:21] LABS: HEPATITIS C ANTIBODY NEGATIVE (NEGATIVE)
[2018-05-12 17:20] VITALS: BP 118/83; PULSE 103; RESP 125; O2SAT 82
--- NOTE | 2018-05-12 19:03 | CP.PCM.DIS ---
<CkJeremias - Last Filed: 05/12/18 18:51> Provider - Provider Date of Admission: 05/12/18 02:05 Attending physician: Denys Cam MD Primary care physician: Joshua Leslie MD Time Spent in preparation of Discharge (in minutes): 30 Hospital Course - Lab Results Lab Results: Most Recent Lab Values WBC 10.8 10^3/uL (4.5-11.0) D 05/12/18 08:10 RBC 4.13 10^6/uL (3.5-6.1) 05/12/18 08:10 Hgb 12.5 g/dL (14.0-18.0) L D 05/12/18 08:10 Hct 37.5 % (42.0-52.0) L 05/12/18 08:10 MCV 90.8 fl (80.0-105.0) 05/12/18 08:10 MCH 30.3 pg (25.0-35.0) 05/12/18 08:10 MCHC 33.3 g/dl (31.0-37.0) 05/12/18 08:10 RDW 13.1 % (11.5-14.5) 05/12/18 08:10 Plt Count 220 10^3/uL (120.0-450.0) 05/12/18 08:10 MPV 9.4 fl (7.0-11.0) 05/12/18 08:10 Gran % 67.2 % (50.0-68.0) 05/12/18 08:10 Lymph % (Auto) 26.0 % (22.0-35.0) 05/12/18 08:10 [place] % (Auto) 4.6 % (1.0-6.0) 05/12/18 08:10 Eos % (Auto) 1.7 % (1.5-5.0) 05/12/18 08:10 Baso % (Auto) 0.5 % (0.0-3.0) 05/12/18 08:10 Gran # 7.24 (1.4-6.5) H 05/12/18 08:10 Lymph # (Auto) 2.8 (1.2-3.4) 05/12/18 08:10 [place] # (Auto) 0.5 (0.1-0.6) 05/12/18 08:10 Eos # (Auto) 0.2 (0.0-0.7) 05/12/18 08:10 Baso # (Auto) 0.05 K/mm3 (0.0-2.0) 05/12/18 08:10 pCO2 49 mm/Hg (35-45) H 05/12/18 09:15 pO2 98.0 mm/Hg (80-100) 05/12/18 09:15 HCO3 23.0 mmol/L (21-28) 05/12/18 09:15 ABG pH 7.28 (7.35-7.45) L 05/12/18 09:15 ABG Total CO2 24.5 mmol.L (22-28) 05/12/18 09:15 ABG O2 Saturation 99.2 % (95-98) H 05/12/18 09:15 ABG O2 Content 18.4 ML/dl (15-23) 05/12/18 03:58 ABG Base Excess -4.1 mmol/L (-2.0-3.0) L 05/12/18 09:15 ABG Hemoglobin 13.7 g/dL (11.7-17.4) 05/12/18 03:58 ABG Carboxyhemoglobin 2.6 % (0.5-1.5) H 05/12/18 03:58 POC ABG HHb (Measured) 1.6 % (0-5) 05/12/18 03:58 ABG Methemoglobin 0.8 % (0.0-3.0) 05/12/18 03:58 ABG O2 Capacity 18.7 mL/dl (16-24) 05/12/18 03:58 ABG Potassium 3.6 mmol/L (3.6-5.2) 05/12/18 09:15 VBG pH 7.21 (7.32-7.43) L 05/12/18 04:15 VBG pCO2 61.0 (40-60) H 05/12/18 04:15 VBG HCO3 24.4 mmol/l (21-28) 05/12/18 04:15 VBG Total CO2 26.3 mmol.L (22-28) 05/12/18 04:15 VBG O2 Sat (Calc) 98.8 % (40-65) H 05/12/18 04:15 VBG Base Excess -4.5 mmol/L (0.0-2.0) L 05/12/18 04:15 VBG Potassium 4.4 mmol/L (3.6-5.2) 05/12/18 04:15 Hgb O2 Saturation 95.0 % (95.0-98.0) 05/12/18 03:58 Sodium 135.0 mmol/L (132-148) 05/12/18 09:15 Chloride 104.0 mmol/L (98-107) 05/12/18 09:15 Glucose 187 mg/dl (75-110) H 05/12/18 09:15 Lactate 1.4 mmol/L (0.7-2.1) 05/12/18 09:15 FiO2 28.0 % 05/12/18 09:15 Sodium 134 mmol/L (132-148) 05/12/18 08:10 Potassium 4.3 mmol/L (3.6-5.0) 05/12/18 08:10 Chloride 102 mmol/L (98-107) 05/12/18 08:10 Carbon Dioxide 24 mmol/L (21-33) 05/12/18 08:10 Anion Gap 12 (10-20) 05/12/18 08:10 BUN 17 mg/dL (7-21) 05/12/18 08:10 Creatinine 1.1 mg/dl (0.8-1.5) 05/12/18 08:10 Est GFR ( Amer) > 60 05/12/18 08:10 Est GFR (Non-Af Amer) > 60 05/12/18 08:10 POC Glucose (mg/dL) 358 mg/dL (65-110) H 05/12/18 00:41 Random Glucose 248 mg/dL (70-110) H 05/12/18 08:10 Hemoglobin A1c 12.3 % (4.2-6.5) H 05/12/18 08:10 Calcium 8.2 mg/dL (8.4-10.5) L 05/12/18 08:10 Total Bilirubin 0.5 mg/dL (0.2-1.3) 05/12/18 08:10 AST 31 U/L (17-59) 05/12/18 08:10 ALT 33 U/L (7-56) 05/12/18 08:10 Alkaline Phosphatase 100 U/L (38-126) 05/12/18 08:10 Troponin I < 0.01 ng/mL D 05/12/18 04:15 Total Protein 6.7 g/dL (5.8-8.3) 05/12/18 08:10 Albumin 3.8 g/dL (3.0-4.8) 05/12/18 08:10 Globulin 3.0 gm/dL 05/12/18 08:10 Albumin/Globulin Ratio 1.3 (1.1-1.8) 05/12/18 08:10 Amylase 101 U/L (35-125) 05/12/18 00:05 Lipase 209 U/L (23-300) 05/12/18 00:05 Procalcitonin 0.10 NG/ML (0.19-0.49) L 05/12/18 00:05 Arterial Blood Potassium 3.6 mmol/L (3.6-5.2) 05/12/18 09:15 Venous Blood Potassium 4.4 mmol/L (3.6-5.2) 05/12/18 04:15 Urine Color Yellow (YELLOW) 05/12/18 04:10 Urine Appearance Clear (CLEAR) 05/12/18 04:10 Urine pH 6.0 (4.7-8.0) 05/12/18 04:10 Ur Specific [place] 1.020 (1.005-1.035) 05/12/18 04:10 Urine Protein 30 mg/dL (<30 mg/dL) H 05/12/18 04:10 Urine Glucose (UA) >=1000 mg/dL (NEGATIVE) 05/12/18 04:10 Urine Ketones Negative mg/dL (NEGATIVE) 05/12/18 04:10 Urine Blood Small (NEGATIVE) H 05/12/18 04:10 Urine Nitrate Negative (NEGATIVE) 05/12/18 04:10 Urine Bilirubin Negative (NEGATIVE) 05/12/18 04:10 Urine Urobilinogen 0.2 E.U./dL (<1 E.U./dL) 05/12/18 04:10 Ur Leukocyte Esterase Negative Abiel/uL (NEGATIVE) 05/12/18 04:10 Urine RBC 1 - 3 /hpf (0-2) 05/12/18 04:10 Urine WBC 0 - 2 /hpf (0-6) 05/12/18 04:10 Ur Epithelial Cells 1 - 3 /hpf (0-5) 05/12/18 04:10 Urine Bacteria Few (NEG) 05/12/18 04:10 Hyaline Casts 0 - 2 /hpf 05/12/18 04:10 Urine Other Mucus 05/12/18 04:10 Urine Opiates Screen Positive (NEGATIVE) H 05/12/18 04:10 Urine Methadone Screen Negative (NEGATIVE) 05/12/18 04:10 Ur Barbiturates Screen Negative (NEGATIVE) 05/12/18 04:10 Ur Phencyclidine Scrn Negative (NEGATIVE) 05/12/18 04:10 Ur Amphetamines Screen Negative (NEGATIVE) 05/12/18 04:10 U Benzodiazepines Scrn Positive (NEGATIVE) H 05/12/18 04:10 U Oth Cocaine Metabols Negative (NEGATIVE) 05/12/18 04:10 U Cannabinoids Screen Negative (NEGATIVE) 05/12/18 04:10 Alcohol, Quantitative < 10 mg/dL (0-10) 05/11/18 23:35 Hepatitis A IgM Ab Negative (NEGATIVE) 05/12/18 00:05 Hep Bs Antigen Negative (NEGATIVE) 05/12/18 00:05 Hep B Core IgM Ab Negative (NEGATIVE) 05/12/18 00:05 Hepatitis C Antibody Negative (NEGATIVE) 05/12/18 00:05 - Hospital Course Hospital Course: Jeremias Stover, PGY1 Discharge Summary for Dr. Cam Patient is a 42 y/o male with a PMHx of alcohol abuse, opiate abuse, gastritis, DM, and anxiety, who was brought in by EMS for altered mental status. Patient was found sleeping outside, poorly responsive. in the ED, he was able to respond to his name only and was only able to open his eyes briefly before closing them. Patient had to be repeatedly awakened in order to take an appropriate history. Patient denies using heroin during time of interview but did admit to recently drinking alcohol. History and ROS was very limited due to patient's altered mental status, most of the past medical history was obtained from chart review. Patient's urine drug screen was +opiates and +benzos. EtOH level was negative. UA was negative. Head CT did not show any acute intracranial pathology. EKG indicated sinus tachycardia without ST or T wave changes. Patient's vitals were stable. He was started on narcan gtt and sent to the ICU for observation. Medical team later evaluated patient in the morning. Patient was more responsive however still continued to doze off after answering a few questions. On exam, patient did have some tremors and claimed that he his last alcoholic beverage was one day ago. Patient also mentions he has chronic back pain. Otherwise, he denied sob, cp, vomiting, lightheadedness, dizziness. Patient initially presented with wbc 17.3 and Cr of 2.3, which improved to 10.8 and 1.1 on repeat testing respectively. Due to alcohol withdrawal risk factors, patient was started on ativan and placed on CIWA protocol. Patient was monitored on the unit. Around 5 pm, the patient signed out AMA. He was discussed the risks of signing out included and permanent disability. Patient was also told to return to the ED if symptoms reoccurred. Discharge Exam - Head Exam Head Exam: ATRAUMATIC, NORMAL INSPECTION, NORMOCEPHALIC - Eye Exam Additional comments: Restricted pupils, not responsive to light. - ENT Exam ENT Exam: Mucous Membranes Moist - Respiratory Exam Respiratory Exam: NORMAL BREATHING PATTERN. absent: Rales, Rhonchi, Wheezes, Respiratory Distress - Cardiovascular Exam Cardiovascular Exam: RRR, +S1, +S2. absent: JVD - GI/Abdominal Exam GI & Abdominal Exam: Normal Bowel Sounds - Neurological Exam Neurological exam: Alert, Normal Gait, Oriented x3, Reflexes Normal - Skin Skin Exam: Dry, Intact, Normal Color, Warm Discharge Plan - Follow Up Plan Condition: GUARDED Disposition: AGAINST MEDICAL ADVICE Referrals: Joshua Leslie MD [Primary Care Provider] - <Denys Cam - Last Filed: 05/12/18 19:14> Provider - Provider Date of Admission: 05/12/18 02:05 Attending physician: Denys Cam MD Primary care physician: Joshua Leslie MD Hospital Course - Lab Results Lab Results: Most Recent Lab Values WBC 10.8 10^3/uL (4.5-11.0) D 05/12/18 08:10 RBC 4.13 10^6/uL (3.5-6.1) 05/12/18 08:10 Hgb 12.5 g/dL (14.0-18.0) L D 05/12/18 08:10 Hct 37.5 % (42.0-52.0) L 05/12/18 08:10 MCV 90.8 fl (80.0-105.0) 05/12/18 08:10 MCH 30.3 pg (25.0-35.0) 05/12/18 08:10 MCHC 33.3 g/dl (31.0-37.0) 05/12/18 08:10 RDW 13.1 % (11.5-14.5) 05/12/18 08:10 Plt Count 220 10^3/uL (120.0-450.0) 05/12/18 08:10 MPV 9.4 fl (7.0-11.0) 05/12/18 08:10 Gran % 67.2 % (50.0-68.0) 05/12/18 08:10 Lymph % (Auto) 26.0 % (22.0-35.0) 05/12/18 08:10 [place] % (Auto) 4.6 % (1.0-6.0) 05/12/18 08:10 Eos % (Auto) 1.7 % (1.5-5.0) 05/12/18 08:10 Baso % (Auto) 0.5 % (0.0-3.0) 05/12/18 08:10 Gran # 7.24 (1.4-6.5) H 05/12/18 08:10 Lymph # (Auto) 2.8 (1.2-3.4) 05/12/18 08:10 [place] # (Auto) 0.5 (0.1-0.6) 05/12/18 08:10 Eos # (Auto) 0.2 (0.0-0.7) 05/12/18 08:10 Baso # (Auto) 0.05 K/mm3 (0.0-2.0) 05/12/18 08:10 pCO2 49 mm/Hg (35-45) H 05/12/18 09:15 pO2 98.0 mm/Hg (80-100) 05/12/18 09:15 HCO3 23.0 mmol/L (21-28) 05/12/18 09:15 ABG pH 7.28 (7.35-7.45) L 05/12/18 09:15 ABG Total CO2 24.5 mmol.L (22-28) 05/12/18 09:15 ABG O2 Saturation 99.2 % (95-98) H 05/12/18 09:15 ABG O2 Content 18.4 ML/dl (15-23) 05/12/18 03:58 ABG Base Excess -4.1 mmol/L (-2.0-3.0) L 05/12/18 09:15 ABG Hemoglobin 13.7 g/dL (11.7-17.4) 05/12/18 03:58 ABG Carboxyhemoglobin 2.6 % (0.5-1.5) H 05/12/18 03:58 POC ABG HHb (Measured) 1.6 % (0-5) 05/12/18 03:58 ABG Methemoglobin 0.8 % (0.0-3.0) 05/12/18 03:58 ABG O2 Capacity 18.7 mL/dl (16-24) 05/12/18 03:58 ABG Potassium 3.6 mmol/L (3.6-5.2) 05/12/18 09:15 VBG pH 7.21 (7.32-7.43) L 05/12/18 04:15 VBG pCO2 61.0 (40-60) H 05/12/18 04:15 VBG HCO3 24.4 mmol/l (21-28) 05/12/18 04:15 VBG Total CO2 26.3 mmol.L (22-28) 05/12/18 04:15 VBG O2 Sat (Calc) 98.8 % (40-65) H 05/12/18 04:15 VBG Base Excess -4.5 mmol/L (0.0-2.0) L 05/12/18 04:15 VBG Potassium 4.4 mmol/L (3.6-5.2) 05/12/18 04:15 Hgb O2 Saturation 95.0 % (95.0-98.0) 05/12/18 03:58 Sodium 135.0 mmol/L (132-148) 05/12/18 09:15 Chloride 104.0 mmol/L (98-107) 05/12/18 09:15 Glucose 187 mg/dl (75-110) H 05/12/18 09:15 Lactate 1.4 mmol/L (0.7-2.1) 05/12/18 09:15 FiO2 28.0 % 05/12/18 09:15 Sodium 134 mmol/L (132-148) 05/12/18 08:10 Potassium 4.3 mmol/L (3.6-5.0) 05/12/18 08:10 Chloride 102 mmol/L (98-107) 05/12/18 08:10 Carbon Dioxide 24 mmol/L (21-33) 05/12/18 08:10 Anion Gap 12 (10-20) 05/12/18 08:10 BUN 17 mg/dL (7-21) 05/12/18 08:10 Creatinine 1.1 mg/dl (0.8-1.5) 05/12/18 08:10 Est GFR ( Amer) > 60 05/12/18 08:10 Est GFR (Non-Af Amer) > 60 05/12/18 08:10 POC Glucose (mg/dL) 358 mg/dL (65-110) H 05/12/18 00:41 Random Glucose 248 mg/dL (70-110) H 05/12/18 08:10 Hemoglobin A1c 12.3 % (4.2-6.5) H 05/12/18 08:10 Calcium 8.2 mg/dL (8.4-10.5) L 05/12/18 08:10 Total Bilirubin 0.5 mg/dL (0.2-1.3) 05/12/18 08:10 AST 31 U/L (17-59) 05/12/18 08:10 ALT 33 U/L (7-56) 05/12/18 08:10 Alkaline Phosphatase 100 U/L (38-126) 05/12/18 08:10 Troponin I < 0.01 ng/mL D 05/12/18 04:15 Total Protein 6.7 g/dL (5.8-8.3) 05/12/18 08:10 Albumin 3.8 g/dL (3.0-4.8) 05/12/18 08:10 Globulin 3.0 gm/dL 05/12/18 08:10 Albumin/Globulin Ratio 1.3 (1.1-1.8) 05/12/18 08:10 Amylase 101 U/L (35-125) 05/12/18 00:05 Lipase 209 U/L (23-300) 05/12/18 00:05 Procalcitonin 0.10 NG/ML (0.19-0.49) L 05/12/18 00:05 Arterial Blood Potassium 3.6 mmol/L (3.6-5.2) 05/12/18 09:15 Venous Blood Potassium 4.4 mmol/L (3.6-5.2) 05/12/18 04:15 Urine Color Yellow (YELLOW) 05/12/18 04:10 Urine Appearance Clear (CLEAR) 05/12/18 04:10 Urine pH 6.0 (4.7-8.0) 05/12/18 04:10 Ur Specific [place] 1.020 (1.005-1.035) 05/12/18 04:10 Urine Protein 30 mg/dL (<30 mg/dL) H 05/12/18 04:10 Urine Glucose (UA) >=1000 mg/dL (NEGATIVE) 05/12/18 04:10 Urine Ketones Negative mg/dL (NEGATIVE) 05/12/18 04:10 Urine Blood Small (NEGATIVE) H 05/12/18 04:10 Urine Nitrate Negative (NEGATIVE) 05/12/18 04:10 Urine Bilirubin Negative (NEGATIVE) 05/12/18 04:10 Urine Urobilinogen 0.2 E.U./dL (<1 E.U./dL) 05/12/18 04:10 Ur Leukocyte Esterase Negative Abiel/uL (NEGATIVE) 05/12/18 04:10 Urine RBC 1 - 3 /hpf (0-2) 05/12/18 04:10 Urine WBC 0 - 2 /hpf (0-6) 05/12/18 04:10 Ur Epithelial Cells 1 - 3 /hpf (0-5) 05/12/18 04:10 Urine Bacteria Few (NEG) 05/12/18 04:10 Hyaline Casts 0 - 2 /hpf 05/12/18 04:10 Urine Other Mucus 05/12/18 04:10 Urine Opiates Screen Positive (NEGATIVE) H 05/12/18 04:10 Urine Methadone Screen Negative (NEGATIVE) 05/12/18 04:10 Ur Barbiturates Screen Negative (NEGATIVE) 05/12/18 04:10 Ur Phencyclidine Scrn Negative (NEGATIVE) 05/12/18 04:10 Ur Amphetamines Screen Negative (NEGATIVE) 05/12/18 04:10 U Benzodiazepines Scrn Positive (NEGATIVE) H 05/12/18 04:10 U Oth Cocaine Metabols Negative (NEGATIVE) 05/12/18 04:10 U Cannabinoids Screen Negative (NEGATIVE) 05/12/18 04:10 Alcohol, Quantitative < 10 mg/dL (0-10) 05/11/18 23:35 Hepatitis A IgM Ab Negative (NEGATIVE) 05/12/18 00:05 Hep Bs Antigen Negative (NEGATIVE) 05/12/18 00:05 Hep B Core IgM Ab Negative (NEGATIVE) 05/12/18 00:05 Hepatitis C Antibody Negative (NEGATIVE) 05/12/18 00:05 Discharge Plan - Follow Up Plan Patient education suggested?: Yes Attending/Attestation - Attestation I have personally seen and examined this patient.: Yes I have fully participated in the care of the patient.: Yes I have reviewed all pertinent clinical information, including history, physical exam and plan: Yes Notes (Text): 05/12/18 19:09 42 year old male with past medical history of alcohol abuse, substance abuse, and diabetes who presented with altered mental status, possibly secondary to drug overdose. Utox was positive for opiates and benzodiazepines. Alcohol level was negative. CT head was negative for acute findings. He had ANTHONY initially which responded to fluids. He had leukocytosis, likely reactive, which also improved. CXR/UA was negative. He was given narcan and admitted to the ICU for observation. His mental status improved to baseline. He does not recall events leading to hospital but remembers taking "pain pills" and admits to drinking alcohol daily. He denied any thoughts of harming himself. He denied feeling depressed. He states she recently from his girlfriend and will now move in with his dad. Later in the evening patient left against medical advice. eDnys Cam MD Hospitalist.
--- NOTE | 2018-05-13 09:35 | CP.PCM.PCO ---
Physician Communication Note - Physician Communication Note Physician Communication Note: pt was discharged
== END 2018-05-12 17:50 | disposition left against medical advice (07) | DRG 812 ==
LOC: ED 22:57 → ERH 05-12 02:05 → ICU 05-12 07:21
PROVIDERS: ADMIT Internal Medicine; ATTEND Internal Medicine
DX: T50.901A Poisoning by unspecified drugs, medicaments and biological substances, accidental (unintentional), initial encounter (principal); A41.9 Sepsis, unspecified organism; N17.9 Acute kidney failure, unspecified; E11.9 Type 2 diabetes mellitus without complications; F14.90 Cocaine use, unspecified, uncomplicated; G89.29 Other chronic pain; I10 Essential (primary) hypertension; F17.210 Nicotine dependence, cigarettes, uncomplicated; R40.2412 Glasgow coma scale score 13-15, at arrival to emergency department; L81.8 Other specified disorders of pigmentation; R00.0 Tachycardia, unspecified

== ENCOUNTER 2018-05-13 17:38 | Emergency (ER) | payer OTHER ==
[2018-05-13 17:58] VITALS: BP 105/65; PULSE 98; RESP 18; TEMP 98.2; O2SAT 98
[2018-05-13 17:59] VITALS: BMI 23.6
== END 2018-05-13 18:30 | disposition left against medical advice (07) ==
LOC: ED 17:38
DX: Z02.89 Encounter for other administrative examinations (principal); R42 Dizziness and giddiness

== ENCOUNTER 2018-05-13 18:31 | Emergency (ER) | payer OTHER ==
[2018-05-13 18:32] VITALS: BMI 23.6
[2018-05-13 19:04] VITALS: RESP 18; TEMP 97.8
[2018-05-13] MEDS ORDERED: Sodium Chloride 0.9% 1,000 ML IV STA (19:47)
--- NOTE | 2018-05-13 19:53 | ED PDOC ---
Arrival/HPI - General Chief Complaint: Abdominal Pain Time Seen by Provider: 05/13/18 18:49 Historian: Patient - History of Present Illness Narrative History of Present Illness (Text): 05/13/18 19:52 42 yo M w/ PMH of diabetes, alcohol abuse, colitis, complains of LUQ with nausea which started today. Patient came to the ER for evaluation 1 hr ago, however was demanding to be fed and given water and refused evaluation and treatment, walked out and returned to the Emergency room. Otherwise: (-) chest pain, (-) shortness of breath, (-) vomiting, (-) diarrhea, (-) fever, (-) urinary symptoms, (-) melena, (-) hematochezia. PMD [place] Past Medical History - Past History Past History: No Previous - Infectious Disease Hx of Infectious Diseases: None - Tetanus Immunization Tetanus Immunization: Unknown - Past Medical History Past Medical History: No Previous - Cardiac Hx Hypertension: No - Pulmonary Hx Tuberculosis: No - Neurological Hx Seizures: No - HEENT Hx HEENT Disorder: No - Renal Hx Renal Disorder: No - Endocrine/Metabolic Hx Endocrine Disorders: Yes Hx Diabetes Mellitus Type 2: Yes - Hematological/Oncological Hx Cancer: No - Integumentary Hx Dermatological Disorder: No (TATTOO TO LEFT LEG.) - Musculoskeletal/Rheumatological Hx Falls: Yes - Gastrointestinal Hx Gastritis: Yes - Genitourinary/Gynecological Hx Sexually Transmitted Diseases: No - Psychiatric Hx Anxiety: Yes Hx Depression: No Hx Substance Use: Yes - Past Surgical History Past Surgical History: No Previous - Anesthesia Hx Anesthesia: Yes Hx Anesthesia Reactions: No - Suicidal Assessment Feels Threatened In Home Enviroment: No Family/Social History Family/Social History: No Known Family HX Smoking Status: Heavy Smoker > 10 Cigarettes Daily Hx Alcohol Use: Yes Hx Substance Use: Yes Substance used: percocet Hx Substance Use Treatment: No Allergies/Home Meds Allergies/Adverse Reactions: Allergies No Known Allergies Allergy (Verified 07/20/17 16:38) Review of Systems - Review of Systems Constitutional: absent: Fatigue, Fevers Respiratory: absent: SOB, Cough Cardiovascular: absent: Chest Pain, Palpitations, Edema Gastrointestinal: Abdominal Pain, Nausea. absent: Diarrhea, Vomiting Genitourinary Male: absent: Dysuria, Frequency, Hematuria Musculoskeletal: absent: Arthralgias, Back Pain, Neck Pain Skin: absent: Rash, Pruritis, Skin Lesions Neurological: absent: Headache, Dizziness Physical Exam Vital Signs Temp Pulse Resp BP Pulse Ox 05/13/18 19:04 97.8 F 106 H 18 93/59 L 98 Temperature: Afebrile Blood Pressure: Normal Pulse: Tachycardic Respiratory Rate: Normal Appearance: Positive for: Well-Appearing, Non-Toxic, Comfortable Pain Distress: None (patient is laying in bed comfortably, falling asleep, but easily arouses) Mental Status: Positive for: Alert and Oriented X 3 Finger Stick Blood Glucose: 170 - Systems Exam Head: Present: Atraumatic, Normocephalic Pupils: Present: PERRL Extroacular Muscles: Present: EOMI Conjunctiva: Present: Normal Mouth: Present: Moist Mucous Membranes Neck: Present: Normal Range of Motion Respiratory/Chest: Present: Clear to Auscultation, Good Air Exchange. No: Respiratory Distress, Accessory Muscle Use Cardiovascular: Present: Regular Rate and Rhythm, Normal S1, S2. No: Murmurs Abdomen: Present: Tenderness (+mild LUQ tenderness). No: Distention, Peritoneal Signs, Rebound, Guarding Back: Present: Normal Inspection Upper Extremity: Present: Normal Inspection. No: Cyanosis, Edema Lower Extremity: Present: Normal Inspection. No: Edema Neurological: Present: GCS=15, CN II-XII Intact, Speech Normal, Motor Func Grossly Intact, Normal Sensory Function, Gait Normal Skin: Present: Warm, Dry, Normal Color. No: Rashes Psychiatric: Present: Alert, Oriented x 3, Normal Insight, Normal Concentration Medical Decision Making ED Course and Treatment: 05/13/18 19:50 Previous medical records reviewed, patient was seen in this ER and admitted on 05/11/18 for Drug overdose, Altered mental status, Diabetes mellitus, Sepsis. Plan: -- Labs -- IV fluids -- Urinalysis -- FS 170 -- EKG -- CXR -- Pepcid / Zofran / Toradol -- color television console monitor -- Reassess and disposition FS : 170 EKG : NSR at 98 bpm, no acute ST changes. CXR : NAD, as read by MELI Labs reviewed : K 3.2, rest of labs wnl. Patient given 40 mEq PO. On reevaluation, patient reports significant improvement of symptoms, denies any abdominal pain, N/V, chest pain, SOB or back pain. On exam, patient is now more awake, alert and oriented 3 in no acute distress. Patient is standing outside of his room, he is ambulatory with a steady gait with a normal neuro exam. Patient provided a urine sample but is refusing to wait for urine results or to have urine tested, states that he feels well and wants to go home. He feels comfortable going home. Advised to follow up with primary care physician in 1-2 days without fail. Return to the emergency room at any time for any new or worsening symptoms. Patient states he fully agrees with and understands discharge instructions. States that he agrees with the plan and disposition. Verbalized and repeated discharge instructions and plan. I have given the patient opportunity to ask any additional questions. - RAD Interpretation Radiology Orders: 05/13/18 19:47 CHEST PORTABLE [RAD] Stat - Medication Orders Current Medication Orders: Famotidine (Pepcid) 20 mg IVP STAT STA Stop: 05/13/18 19:48 Sodium Chloride (Sodium Chloride 0.9%) 1,000 mls @ 1,000 mls/hr IV .Q1H STA Stop: 05/13/18 20:46 Ondansetron HCl (Zofran Inj) 4 mg IVP STAT STA Stop: 05/13/18 19:48 - PA / FLUID DYNAMICIST / Resident Statement / has reviewed & agrees with the documentation as recorded. Disposition/Present on Arrival - Present on Arrival Any Indicators Present on Arrival: Yes History of DVT/PE: No History of Uncontrolled Diabetes: Yes Urinary Catheter: No History of Decub. Ulcer: No History Surgical Site Infection Following: None - Disposition Have Diagnosis and Disposition been Completed?: Yes Diagnosis: Abdominal pain Disposition: HOME/ ROUTINE Disposition Time: 21:30 Patient Plan: Discharge Patient Problems: Current Active Problems Problem Status Onset Abdominal pain Acute Condition: IMPROVED Discharge Instructions (ExitCare): Acute Abdomen (Belly Pain), Adult (DC) Additional Instructions: Thank you for letting us take care of you today. You were treated for abdominal pain. The emergency medical care you received today was directed at your acute symptoms. It may take several days for your symptoms to resolve. Return to the Emergency Department if your symptoms worsen, do not improve, or if you have any other problems. Please contact your doctor in 2 days for re-evaluation and follow up. Bring any paperwork you were given at discharge with you along with any medications you are taking to your follow up visit. Our treatment cannot replace ongoing medical care by a primary care provider (PCP) outside of the emergency department. Thank you for allowing the [facility] team to be part of your care today. Referrals: Joshua Leslie MD [Primary Care Provider] - Follow up with primary Forms: [employer] ([place])
[2018-05-13 20:31] LABS: BASO # 0.04 K/mm3 (0.0-2.0); BASO % 0.5 % (0.0-3.0); EOS # 0.2 (0.0-0.7); EOS % 3.1 % (1.5-5.0); GRAN # 3.86 (1.4-6.5); GRAN % 51.2 % (50.0-68.0); HEMOGLOBIN 12.1 g/dL (14.0-18.0); MEAN CELL VOLUME 88.3 fl (80.0-105.0); MEAN CORPUSCULAR HEMOGLOBIN 30.2 pg (25.0-35.0); MEAN CORPUSCULAR HGB CONC 34.2 g/dl (31.0-37.0); MONO # 0.4 (0.1-0.6); MONO % 5.2 % (1.0-6.0); RBC 4.01 10^6/uL (3.5-6.1); WHITE BLOOD COUNT 7.5 10^3/uL (4.5-11.0)
[2018-05-13 20:46] LABS: ALB/GLOB RATIO 1.2 (1.1-1.8); ALBUMIN 3.6 g/dL (3.0-4.8); ALT/SGPT 32 U/L (7-56); AST/SGOT 32 U/L (17-59); BLOOD UREA NITROGEN 10 mg/dL (7-21); CALCIUM 8.5 mg/dL (8.4-10.5); GFR NON-AFRICAN AMERICAN > 60; LIPASE 14 U/L (23-300)
[2018-05-13 20:47] LABS: INR 0.79
[2018-05-13] MEDS ORDERED: Potassium Chloride 20 mEq/15 ml LIQ UD PO STA (20:50)
[2018-05-13 20:56] LABS: TROPONIN I < 0.01 ng/mL
[2018-05-14 01:22] VITALS: BP 102/62; PULSE 86; O2SAT 99
--- NOTE | 2018-05-14 08:52 | RAD ---
Date of service: 05/13/2018 HISTORY: LUQ pain COMPARISON: 05/12/2018 FINDINGS: LUNGS: No active pulmonary disease. PLEURA: No significant pleural effusion identified, no pneumothorax apparent. CARDIOVASCULAR: No aortic atherosclerotic calcification present. Normal cardiac size. No pulmonary vascular congestion. OSSEOUS STRUCTURES: No significant abnormalities. VISUALIZED UPPER ABDOMEN: Normal. OTHER FINDINGS: None. IMPRESSION: No active disease.
--- NOTE | 2018-05-14 10:11 | CARD ---
APPROVED REPORT Date of service: 05/13/2018 EKG Measurement Heart [id number] <Conclusion> Normal sinus rhythm Possible Left atrial enlargement Borderline ECG
== END 2018-05-13 21:32 | disposition home or self-care (01) ==
LOC: ED 18:31
DX: R10.12 Left upper quadrant pain (principal); E11.9 Type 2 diabetes mellitus without complications; F17.210 Nicotine dependence, cigarettes, uncomplicated
CPT/HCPCS: 71045; 80053; 80320; 82948; 83690; 83735; 84484; 85025; 85610; 85730; 93005; 96361; 96374; 96375; 99283; J2405; J7030

== ENCOUNTER 2018-06-20 12:25 | Emergency (ER) | payer OTHER ==
[2018-06-20 12:29] VITALS: BMI 22.1
--- NOTE | 2018-06-20 13:13 | ED PDOC ---
Arrival/HPI - General Chief Complaint: Alcohol Ingestion Time Seen by Provider: 06/20/18 12:29 Historian: Patient, Police - History of Present Illness Narrative History of Present Illness (Text): 06/20/18 13:08 A 42 year old male, whose past medical history includes alcohol intoxication and withdrawal, is brought into the emergency department by Gerald CARL for alcohol intoxication. As per RN, the patient was kicked out of a motel, where he was living and noted to be intoxicated. Police was called and transferred the patient to the emergency department. The patient is ambulating well. He denies fall, trauma, injury, fevers, chills, headache, dizziness, chest pain, shortness of breath, dyspnea on exertion, cough, abdominal pain, nausea, vomiting, diarrhea, back pain, neck pain, urinary/bowel changes, or any other complaint. Time/Duration: Prior to Arrival Symptom Onset: Sudden Symptom Course: Unchanged Activities at Onset: Rest, Light Context: Other (Motel) Past Medical History - Provider Review Nursing Documentation Reviewed: Yes - Past History Past History: No Previous - Infectious Disease Hx of Infectious Diseases: None - Tetanus Immunization Tetanus Immunization: Unknown - Past Medical History Past Medical History: No Previous - Cardiac Hx Hypertension: No - Pulmonary Hx Tuberculosis: No - Neurological Hx Seizures: No - HEENT Hx HEENT Disorder: No - Renal Hx Renal Disorder: No - Endocrine/Metabolic Hx Diabetes Mellitus Type 2: Yes - Hematological/Oncological Hx Cancer: No - Integumentary Hx Dermatological Disorder: No (TATTOO TO LEFT LEG.) - Musculoskeletal/Rheumatological Hx Falls: Yes - Gastrointestinal Hx Gastritis: Yes - Genitourinary/Gynecological Hx Sexually Transmitted Diseases: No - Psychiatric Hx Anxiety: Yes Hx Depression: No Hx Substance Use: Yes (denies) - Past Surgical History Past Surgical History: No Previous - Anesthesia Hx Anesthesia: Yes Hx Anesthesia Reactions: No - Suicidal Assessment Feels Threatened In Home Enviroment: No Family/Social History - Physician Review Nursing Documentation Reviewed: Yes Family/Social History: No Known Family HX Smoking Status: Light Smoker < 10 Cigarettes Daily Hx Alcohol Use: Yes Hx Substance Use: Yes (denies) Substance used: percocet Hx Substance Use Treatment: No Allergies/Home Meds Allergies/Adverse Reactions: Allergies No Known Allergies Allergy (Verified 06/05/18 14:18) Review of Systems - Review of Systems Constitutional: absent: Fevers Respiratory: absent: SOB, Cough Cardiovascular: absent: Chest Pain, PLUMMER Gastrointestinal: absent: Abdominal Pain, Stool Changes, Diarrhea, Nausea, Vomiting Genitourinary Male: absent: Urinary Output Changes Musculoskeletal: absent: Back Pain, Neck Pain Neurological: absent: Headache, Dizziness Physical Exam Vital Signs Reviewed: Yes Vital Signs Temp Pulse Resp BP Pulse Ox 06/20/18 12:25 98.5 F 103 H 18 100/60 99 Temperature: Afebrile Blood Pressure: Normal Pulse: Tachycardic Respiratory Rate: Normal Appearance: Positive for: Well-Appearing, Non-Toxic, Comfortable Pain Distress: None Mental Status: Positive for: Alert and Oriented X 3 Finger Stick Blood Glucose: 224 - Systems Exam Head: Present: Atraumatic, Normocephalic Pupils: Present: PERRL Extroacular Muscles: Present: EOMI Conjunctiva: Present: Normal Ears: Present: Normal, NORMAL TM. No: Erythema Mouth: Present: Moist Mucous Membranes Pharnyx: Present: Normal. No: ERYTHEMA, EXUDATE, TONSILS ENLARGED Neck: Present: Normal Range of Motion. No: Meningeal Signs, MIDLINE TENDERNESS Respiratory/Chest: Present: Clear to Auscultation, Good Air Exchange. No: Respiratory Distress, Accessory Muscle Use Cardiovascular: Present: Regular Rate and Rhythm, Normal S1, S2. No: Murmurs Abdomen: No: Tenderness, Distention, Peritoneal Signs Back: Present: Normal Inspection Upper Extremity: Present: Normal Inspection. No: Cyanosis, Edema Lower Extremity: Present: Normal Inspection. No: Edema Neurological: Present: GCS=15, CN II-XII Intact, Speech Normal, Normal Sensory Function, Normal Cerebellar Funct, Gait Normal Skin: Present: Warm, Dry, Normal Color. No: Rashes Psychiatric: Present: Alert, Oriented x 3, Normal Insight, Normal Concentration Medical Decision Making ED Course and Treatment: Impression: A 42 year old male brought into the emergency department by Gerald CARL for alcohol intoxication. Pt in NAD. No neck pain or stiffness, No abdominal pain. No chest pain or sob. No constipation or diarrhea. No dark or bloody stool. No appreciable trauma on exam. No SI or HI. No depression. Intoxicated on my exam. Smells of etoh. Will re-eval. No kussumal breathing. Plan: -- Reassess and disposition Prior Visits: Notes and results from previous visits were reviewed. Progress Notes: 06/20/18 16:43 Pt in NAD with VS unremarkable walking well in NAD Clinically sober No withdrawal symptoms Neuro exam unremarkable. No CVAT No signs of trauma clear for d/c endorsed to pt to d/c etoh usage. pt agreeable to plan. - Scribe Statement The provider has reviewed the documentation as recorded by the Scribe Susan Nolasco Provider Scribe Attestation: All medical record entries made by the Scribe were at my direction and personally dictated by me. I have reviewed the chart and agree that the record accurately reflects my personal performance of the history, physical exam, medical decision making, and the department course for this patient. I have also personally directed, reviewed, and agree with the discharge instructions and disposition. Disposition/Present on Arrival - Present on Arrival Any Indicators Present on Arrival: No History of DVT/PE: No History of Uncontrolled Diabetes: No Urinary Catheter: No History of Decub. Ulcer: No History Surgical Site Infection Following: None - Disposition Have Diagnosis and Disposition been Completed?: Yes Diagnosis: Alcohol intoxication Disposition: HOME/ ROUTINE Disposition Time: 16:42 Condition: GOOD Discharge Instructions (ExitCare): Alcohol Abuse and Alcoholism (DC) Additional Instructions: NADER MALAVE, thank you for letting us take care of you today. Your provider was John Marr and you were treated for INTOXICATED. The emergency medical care you received today was directed at your acute symptoms. If you were prescribed any medication, please fill it and take as directed. It may take several days for your symptoms to resolve. Return to the Emergency Department if your symptoms worsen, do not improve, or if you have any other problems. Please contact your doctor or call one of the physicians/clinics you have been referred to that are listed on the Patient Visit Information form that is included in your discharge packet. Bring any paperwork you were given at discharge with you along with any medications you are taking to your follow up visit. Our treatment cannot replace ongoing medical care by a primary care provider outside of the emergency department. Thank you for allowing the [facility] team to be part of your care today. If you had an X-Ray or CT scan: A Radiologist will review the ED reading if any change in treatment is needed we will contact you. If you had a blood, urine, or wound culture: It will take several days for the results, if any change in treatment is needed we will contact you. If you had an STI test: It will take 48 hours for the results. Please call after 1 week if you have not heard back. Referrals: Joshua Leslie MD [Primary Care Provider] - Follow up with primary Forms: [employer] ([place])
[2018-06-20 14:48] VITALS: O2SAT 98
[2018-06-20 16:09] VITALS: BP 105/72; PULSE 92; RESP 18; TEMP 98.2
== END 2018-06-20 17:15 | disposition home or self-care (01) ==
LOC: ED 12:25
DX: F10.129 Alcohol abuse with intoxication, unspecified (principal); E11.9 Type 2 diabetes mellitus without complications; F17.210 Nicotine dependence, cigarettes, uncomplicated

== ENCOUNTER 2018-08-05 11:18 | Inpatient (IN) | payer OTHER ==
[2018-08-05 11:45] VITALS: BMI 20.7
[2018-08-05] MEDS ORDERED: Multivitamin (MVI) 10 ML, Thiamine 100 MG, Folic Acid 1 MG in Sodium Chloride 0.9% 1,00... IV ONE ×2 (12:18→19:00)
--- NOTE | 2018-08-05 12:43 | ED PDOC ---
Arrival/HPI - General Chief Complaint: Abdominal Pain Time Seen by Provider: 08/05/18 11:54 Historian: Patient - History of Present Illness Narrative History of Present Illness (Text): 08/05/18 12:30 42 year old male, with past history of alcohol abuse and alcohol withdrawal, presents to the ED for evaluation of abdominal pain, nausea and vomiting since past week. Patient states he has not eaten for past month and has been drinking 3 pints of vodka a day since past month. Patient informs mild radiation of pain to back with associated generalized weakness secondary to vomiting. Patient additionally informs left big toe tingling/discoloration but denies any trauma or injury. Patient denies any other somatic complaints. Patient denies any fever, chest pain, SOB, cough, headache, dizziness, neck pain, urinary symptoms or any other complaints. Patient reports history of tremors consistent with alcohol withdrawal but none currently. Patient admits to drinking alcohol yesterday. Time/Duration: < week Symptom Onset: Gradual Symptom Course: Unchanged Activities at Onset: Light Context: Home Past Medical History - Provider Review Nursing Documentation Reviewed: Yes - Past History Past History: No Previous - Infectious Disease Hx of Infectious Diseases: None - Tetanus Immunization Tetanus Immunization: Unknown - Past Medical History Past Medical History: No Previous - Cardiac Hx Hypertension: No - Pulmonary Hx Tuberculosis: No - Neurological Hx Seizures: No - HEENT Hx HEENT Disorder: No - Renal Hx Renal Disorder: No - Endocrine/Metabolic Hx Endocrine Disorders: Yes Hx Diabetes Mellitus Type 2: Yes - Hematological/Oncological Hx Cancer: No - Integumentary Hx Dermatological Disorder: No - Musculoskeletal/Rheumatological Hx Musculoskeletal Disorders: Yes Hx Falls: Yes - Gastrointestinal Hx Gastritis: Yes - Genitourinary/Gynecological Hx Sexually Transmitted Diseases: No - Psychiatric Hx Anxiety: Yes Hx Depression: No Hx Substance Use: No Other/Comment: ETOH - Past Surgical History Past Surgical History: No Previous - Anesthesia Hx Anesthesia: No - Suicidal Assessment Feels Threatened In Home Enviroment: No Family/Social History - Physician Review Nursing Documentation Reviewed: Yes Family/Social History: No Known Family HX Smoking Status: Heavy Smoker > 10 Cigarettes Daily Hx Alcohol Use: Yes Frequency of alcohol use: Daily Hx Substance Use: No Substance used: percocet Hx Substance Use Treatment: No Allergies/Home Meds Allergies/Adverse Reactions: Allergies No Known Allergies Allergy (Verified 07/20/18 15:46) Home Medications: Home Meds Medication Instructions Recorded Confirmed RX: Glimepiride [amaRYL] 4 mg PO BID 08/05/18 08/05/18 SITagliptin [Januvia] 25 mg PO DAILY 08/05/18 08/05/18 Review of Systems - Physician Review All systems were reviewed & negative as marked: Yes - Review of Systems Constitutional: absent: Fevers Respiratory: absent: SOB, Cough Cardiovascular: absent: Chest Pain Gastrointestinal: Abdominal Pain, Nausea, Vomiting, Appetite Changes. absent: Diarrhea Genitourinary Male: absent: Dysuria, Urinary Output Changes Musculoskeletal: absent: Back Pain, Neck Pain Skin: absent: Rash Neurological: absent: Headache, Dizziness Psychiatric: absent: Anxiety Physical Exam - Physical Exam Narrative Physical Exam (Text): 08/05/18 12:17 Gen: VS reviewed, alert, well developed, cachectic, nontoxic, mild distress. ENT: Dry mucous membranes. normal pharynx. Eye: EOMI, PERRL. Neck: no JVD, supple, no adenopathy. CV: tachycardic, regular rhythm, no rubs, no murmur, no gallops, S1, S2, pulses equal and strong. Pulm: no distress, clear to auscultation, no wheeze, no rhonchi, breath sounds equal, no rales. Abd: soft, diffuse abdominal tenderness, no guarding, no rebound, no rigidity, normal bowel sounds. Ext: no edema. Bluish bruise noted to left big toe localized to the dorsum and toe joint, nontender. Skin: good color, no rash, no cyanosis. Psych: responds appropriately to questions, normal affect. Neuro: oriented x 3, CN2-12 intact grossly, motor intact, sensation intact. Vital Signs Reviewed: Yes Vital Signs Temp Pulse Resp BP Pulse Ox 08/05/18 11:50 97.8 F 137 H 18 125/90 100 Temperature: Afebrile Blood Pressure: Normal Pulse: Tachycardic Respiratory Rate: Normal Appearance: Positive for: Non-Toxic, Comfortable, Cachectic Pain Distress: None Mental Status: Positive for: Alert and Oriented X 3 Medical Decision Making ED Course and Treatment: 08/05/18 12:11 Impression: 42 year old male presents to the ED for evaluation of abdominal pain, nausea and vomiting. Plan: -- VBG -- EKG -- Labs -- CXR -- IV fluids -- Ativan -- Zofran Progress Notes: 08/05/18 13:[address] castellon to the hospitalist service. patient to be admitted for alcoholic pancreatitis, hyperglycemia but no acidosis to suggest DKA, pending CT a/p to rule out necrotic pancreas. patient does not exhibit acute withdrawl symptoms at this time CIWA score = 2 08/05/18 13:24 - RAD Interpretation Narrative RAD Interpretations (Text): 08/05/18 14:34 Chest X-Ray reviewed by radiologist shows no active disease Radiology Orders: 08/05/18 12:17 CHEST PORTABLE [RAD] Stat Dictionary Editor: Radiologist - EKG Interpretation EKG Interpretation (Text): 08/05/18 12:42 1156: sinus tachycardia at 119 bpm, nml qrs, nml axis, no acute sttw abn Interpreted by ED Physician: Yes - Medication Orders Current Medication Orders: Multivitamins/Vitamin C 10 ml/Thiamine HCl 100 mg/ Folic Acid 1 mg/ Sodium Chloride 1,011.2 mls @ 150 mls/hr IV .[id number] ONE Stop: 08/05/18 19:02 Discontinued Medications Lorazepam (Ativan) 2 mg IVP ONCE ONE; Protocol Stop: 08/05/18 12:19 Last Admin: 08/05/18 12:40 Dose: 2 mg IVP Administration Document 08/05/18 12:40 SRE (Rec: 08/05/18 12:40 SRE [id number]) Charges for Administration # of IVP Administrations 1 Ondansetron HCl (Zofran Inj) 4 mg IVP STAT STA Stop: 08/05/18 12:19 Last Admin: 08/05/18 12:40 Dose: 4 mg IVP Administration Document 08/05/18 12:40 SRE (Rec: 08/05/18 12:40 SRE [id number]) Charges for Administration # of IVP Administrations 1 - Scribe Statement The provider has reviewed the documentation as recorded by the Scribe Veena Lilly. All medical record entries made by the Scribe were at my direction and personally dictated by me. I have reviewed the chart and agree that the record accurately reflects my personal performance of the history, physical exam, medical decision making, and the department course for this patient. I have also personally directed, reviewed, and agree with the discharge instructions and disposition. Disposition/Present on Arrival - Present on Arrival Any Indicators Present on Arrival: No History of DVT/PE: No History of Uncontrolled Diabetes: No Urinary Catheter: No History of Decub. Ulcer: No History Surgical Site Infection Following: None - Disposition Have Diagnosis and Disposition been Completed?: Yes Diagnosis: Alcoholic pancreatitis, Hypokalemia Disposition: HOSPITALIZED Disposition Time: 13:23 Patient Plan: Admission Patient Problems: Current Active Problems Problem Status Onset Alcoholic pancreatitis Acute Hypokalemia Acute Condition: GUARDED
[2018-08-05 12:47] LABS: BASO # 0.01 K/mm3 (0.0-2.0); BASO % 0.2 % (0.0-3.0); EOS # 0.1 (0.0-0.7); HEMOGLOBIN 14.6 g/dL (14.0-18.0); LYMPH # 1.3 (1.2-3.4); LYMPH % 20.5 % (22.0-35.0); MEAN CELL VOLUME 83.1 fl (80.0-105.0); MEAN CORPUSCULAR HEMOGLOBIN 28.3 pg (25.0-35.0); MEAN CORPUSCULAR HGB CONC 34.1 g/dl (31.0-37.0); MEAN PLATELET VOLUME 9.6 fl (7.0-11.0); MONO # 0.4 (0.1-0.6); MONO % 6.7 % (1.0-6.0); RBC 5.15 10^6/uL (3.5-6.1); RED CELL DISTRIBUTION WIDTH 14.6 % (11.5-14.5); WHITE BLOOD COUNT 6.1 10^3/uL (4.5-11.0)
[2018-08-05 12:51] LABS: VENOUS BLOOD GAS PO2 36 mm/Hg (30-55); VENOUS BLOOD PH 7.43 (7.32-7.43)
[2018-08-05 13:10] LABS: ALB/GLOB RATIO 1.2 (1.1-1.8); ALT/SGPT 36 U/L (7-56); AST/SGOT 30 U/L (17-59); BLOOD UREA NITROGEN 13 mg/dL (7-21); CALCIUM 9.2 mg/dL (8.4-10.5); GFR NON-AFRICAN AMERICAN > 60; LIPASE 1162 U/L (23-300)
[2018-08-05] MEDS ORDERED: Potassium Chloride 20 mEq ER Tab PO STA (13:11)
[2018-08-05] MEDS ORDERED: Dextrose 50% SYRINGE Inj (50 ml) IVP STA (13:12)
[2018-08-05] MEDS ORDERED: Iohexol 240 (50 ml) ONE (13:22)
[2018-08-05] MEDS ORDERED: Insulin Regular 1 UNITS/0.01 ML ML IVP STA (13:24)
--- NOTE | 2018-08-05 13:49 | RAD ---
Date of service: 08/05/2018 HISTORY: chest pain COMPARISON: 05/13/2018 FINDINGS: LUNGS: No active pulmonary disease. PLEURA: No significant pleural effusion identified, no pneumothorax apparent. CARDIOVASCULAR: No aortic atherosclerotic calcification present. Normal cardiac size. No pulmonary vascular congestion. OSSEOUS STRUCTURES: No significant abnormalities. VISUALIZED UPPER ABDOMEN: Normal. OTHER FINDINGS: None. IMPRESSION: No active disease.
[2018-08-05] MEDS ORDERED: Multivitamin (MVI) 10 ML, Thiamine 100 MG, Folic Acid 1 MG, Potassium Chloride 40 MEQ i... IV ONE (14:29)
--- NOTE | 2018-08-05 14:46 | CP.PCM.HP ---
<Darwin Cruz - Last Filed: 08/05/18 15:55> History of Present Illness - History of Present Illness History of Present Illness: Darwin Cruz DO, PGY-1 Hospitalist Admission History and Physical for Dr. Cam CC: abdominal pain HPI: Patient is a 42 year old male with PMH of polysubstance abuse (EtOH, cocaine, heroin, benzos), DM2 (last A1C 10.3), and gastritis presents with epigastric abdominal pain that has been worsening for the past 2 days. He describes the pain as a sharp, stabbing type pain that radiates to his back and has been worsening in intensity. He also admits to having nausea/vomiting with this abdominal pain. He also admits to loss of appetite and a 30-40 pound weight loss over the past 2 months. He states he has been treated for similar episodes of abdominal pain in the past after drinking. He states he has been treated for diabetes in the past at [facility] but has not followed up regularly. He also states he has had hematemsis in the past and had an upper endoscopy study about 2 weeks ago at [facility]. He has been treated for OD in the past, most recently in [facility] ICU on 05/2018. He also admits to having had alcohol withdrawal symptoms in the past including tremors and seizures. He admits to pain and a bruise in his L great toe but denies fever/chills, CP, SOB, cough, diarrhea, bloody or black stools, and hematemesis. He denies any recent trauma to his feet and is unsure how he got his L foot wound. PMD: none Past Medical Hx: EtOH abuse, heroin abuse, gastritis, DM2 Past Surgical Hx: none Allergies: NKA Home medications: (prescribed after most recent visit, obtained from [facility] pharmacy records) Buspar 10 mg BID, Gabapentin 400 mg TID, Lantus 20 u HS, Januvia 25 mg daily, Trazodone 100 mg HS, seroquel 200 mg daily, gabapentin 400 mg TID, omeprazole 40 mg daily Family Hx: father had cancer Social Hx: Admits to smoking cigarettes 2 PPD for the past 20 years, admits to drinking 3 pints of vodka or other liquor daily, denies using other illicit drugs (but has tested positive for cocaine, benzos, opioids on prior visits) Pharmacy: [facility] pharmacy most recently used Present on Admission - Present on Admission Any Indicators Present on Admission: Yes History of DVT/PE: No History of Uncontrolled Diabetes: Yes Urinary Catheter: No Decubitus Ulcer Present: No Review of Systems - Constitutional Constitutional: absent: Chills, Fever - Cardiovascular Cardiovascular: absent: Chest Pain, Dyspnea, Edema - Respiratory Respiratory: absent: Cough, Dyspnea - Gastrointestinal Gastrointestinal: Abdominal Pain, Nausea, Vomiting. absent: Coffee Ground Erum sis, Diarrhea, Hematemesis - Genitourinary Genitourinary: absent: Change in Urinary Stream - Musculoskeletal Musculoskeletal: Back Pain - Neurological Neurological: Dizziness, Tremor - Psychiatric Psychiatric: Anxiety Past Patient History - Infectious Disease Hx of Infectious Diseases: None - Tetanus Immunizations Tetanus Immunization: Unknown - Past Medical History & Family History Past Medical History?: Yes - Past Social History Smoking Status: Heavy Smoker > 10 Cigarettes Daily - CARDIAC Hx Hypertension: No - PULMONARY Hx Tuberculosis: No - NEUROLOGICAL Hx Seizures: No - HEENT Hx HEENT Problems: No - RENAL Hx Chronic Kidney Disease: No - ENDOCRINE/METABOLIC Hx Endocrine Disorders: Yes Hx Diabetes Mellitus Type 2: Yes - HEMATOLOGICAL/ONCOLOGICAL Hx Cancer: No - INTEGUMENTARY Hx Dermatological Problems: No - MUSCULOSKELETAL/RHEUMATOLOGICAL Hx Musculoskeletal Disorders: Yes Hx Falls: Yes - GASTROINTESTINAL Hx Gastritis: Yes - GENITOURINARY/GYNECOLOGICAL Hx Sexually Transmitted Disorders: No - PSYCHIATRIC Hx Anxiety: Yes Hx Depression: No Hx Substance Use: No Other/Comment: ETOH - SURGICAL HISTORY Hx Surgeries: No - ANESTHESIA Hx Anesthesia: No Meds Allergies/Adverse Reactions: Allergies Allergy/AdvReac Type Severity Reaction Status Date / Time No Known Allergies Allergy Verified 07/20/18 15:46 Physical Exam - Constitutional Appears: No Acute Distress, Other (appears unkempt, thin, but in no acute distress and not overly anxious) - Head Exam Head Exam: ATRAUMATIC, NORMOCEPHALIC - Eye Exam Eye Exam: EOMI, Normal appearance, PERRL - ENT Exam ENT Exam: Mucous Membranes Dry - Neck Exam Neck exam: Positive for: Full Rom, Normal Inspection - Respiratory Exam Respiratory Exam: Clear to Auscultation Bilateral, NORMAL BREATHING PATTERN. absent: Rales, Rhonchi, Wheezes - Cardiovascular Exam Cardiovascular Exam: Tachycardia, +S1, +S2. absent: Diastolic murmur, Gallop, Rubs, Systolic Murmur - GI/Abdominal Exam GI & Abdominal Exam: Mass (palpated above epigastric region but no hepatomegaly or splenomegaly), Tenderness (mild tenderness to palpation epigastric region). absent: Organomegaly - Extremities Exam Extremities exam: Positive for: pedal pulses present (pedal pulses on LLE +1 compared to +2 pulses on RLE). Negative for: calf tenderness, pedal edema Additional comments: multiple lacerations present on LE b/l, all healing as expected, LLE colder than right - Back Exam Back exam: NORMAL INSPECTION - Neurological Exam Neurological exam: Alert, Oriented x3 - Psychiatric Exam Psychiatric exam: Anxious - Skin Skin Exam: Dry, Pallor, Warm Results - Vital Signs Recent Vital Signs: Last Vital Signs Temp 97.8 F 08/05/18 11:50 Pulse 137 H 08/05/18 11:50 Resp 18 08/05/18 11:50 BP 125/90 08/05/18 11:50 Pulse Ox 100 08/05/18 11:50 - Labs Result Diagrams: 08/05/18 12:30 08/05/18 12:30 Labs: Laboratory Results - last 24 hr 08/05/18 08/05/18 08/05/18 12:30 12:30 12:30 WBC 6.1 RBC 5.15 Hgb 14.6 D Hct 42.8 MCV 83.1 D MCH 28.3 MCHC 34.1 RDW 14.6 H Plt Count 213 MPV 9.6 Neut % (Auto) 71.6 H Lymph % (Auto) 20.5 L Crisp % (Auto) 6.7 H Eos % (Auto) 1.0 L Baso % (Auto) 0.2 Lymph # (Auto) 1.3 Crisp # (Auto) 0.4 Eos # (Auto) 0.1 Baso # (Auto) 0.01 Absolute Neuts (auto) 4.40 pO2 36 VBG pH 7.43 VBG pCO2 40.0 VBG HCO3 26.5 VBG Total CO2 27.7 VBG O2 Sat (Calc) 75.1 H VBG Base Excess 2.0 VBG Potassium 2.7 L Sodium 127.0 L 127 L Chloride 78.0 L 79 L D Glucose 360 H Lactate 2.4 H FiO2 21.0 Crit Value Called To Maddy Crit Value Called By Ab Blood Gas Notified Time 1255 Potassium 2.8 L* Carbon Dioxide 24 Anion Gap 27 H BUN 13 Creatinine 0.6 L Est GFR ( Amer) > 60 Est GFR (Non-Af Amer) > 60 Random Glucose 342 H* D Calcium 9.2 Magnesium 1.9 Total Bilirubin 0.9 AST 30 ALT 36 Alkaline Phosphatase 135 H D Total Protein 7.5 Albumin 4.0 Globulin 3.5 Albumin/Globulin Ratio 1.2 Lipase 1162 H Venous Blood Potassium 2.7 L Alcohol, Quantitative 08/05/18 12:30 WBC RBC Hgb Hct MCV MCH MCHC RDW Plt Count MPV Neut % (Auto) Lymph % (Auto) Crisp % (Auto) Eos % (Auto) Baso % (Auto) Lymph # (Auto) Crisp # (Auto) Eos # (Auto) Baso # (Auto) Absolute Neuts (auto) pO2 VBG pH VBG pCO2 VBG HCO3 VBG Total CO2 VBG O2 Sat (Calc) VBG Base Excess VBG Potassium Sodium Chloride Glucose Lactate FiO2 Crit Value Called To Crit Value Called By Blood Gas Notified Time Potassium Carbon Dioxide Anion Gap BUN Creatinine Est GFR ( Amer) Est GFR (Non-Af Amer) Random Glucose Calcium Magnesium Total Bilirubin AST ALT Alkaline Phosphatase Total Protein Albumin Globulin Albumin/Globulin Ratio Lipase Venous Blood Potassium Alcohol, Quantitative < 10 Assessment & Plan - Assessment and Plan (Free Text) Assessment: 42 yo M with PMH of polysubstance abuse (EtOH, cocaine, heroin, benzos), DM2 (last A1C 10.3), and gastritis presents with recurrent alcoholic pancreatitis. Plan: Pancreatitis Likely 2/2 chronic EtOH abuse NPO Continue NS with KCl and vitamin supplementation at 150 cc/hr Protonix 40 mg IVP daily Morphine 2 mg q6h IVP for pain control Zofran 4 mg q6h IVP for nausea/vomiting Check Mg/Phos levels, replete as needed EtOH Abuse CIWA protocol Ativan 2 mg q4h IVP scheduled and 2 mg q2h IVP PRN for agitation/withdrawal symptoms Hypokalemia Likely 2/2 poor PO intake vs GI losses Repleted with 60 mEq in ED Will continue to replete with 40 mEq in IVF Repeat BMP at 1600 and replete as needed Hyponatremia Likely 2/2 poor PO intake vs excessive EtOH intake with inadequate salt replacement Replacing with NS at 150 cc/hr Will get serum osmolality and urine Na to verify etiology Repeat BMP at 1600 Uncontrolled DM2 Last A1c 10.3, repeat for this visit Hold home anti-hyperglycemic agents ISS while admitted Tachycardia Likely 2/2 EtOH withdrawal vs electrolyte imbalances Check Mg/Phos, repeat BMP after replacement Will start ativan as above for withdrawal symptoms Monitor for improvement on telemetry L foot wound/decreased LLE pulses Patient admits to poor follow up and poor diabetic foot care Will consult podiatry for diabetic foot care/management of L foot wound Will also get LLE arterial doppler and Xray to r/o PVD and/or osteomyelitis DVT/GI PPX: SC heparin/protonix Full Code NPO Monitor on telemetry Patient seen, examined, and plan discussed with my attending Dr. Tutu Cruz, GonzaloO. IM Resident PGY-1 Pager: [phone] <Denys Cam - Last Filed: 08/05/18 16:38> Results - Vital Signs Recent Vital Signs: Last Vital Signs Temp 97.8 F 08/05/18 11:50 Pulse 137 H 08/05/18 11:50 Resp 18 08/05/18 11:50 BP 127/86 08/05/18 16:10 Pulse Ox 100 08/05/18 11:50 - Labs Result Diagrams: 08/05/18 12:30 08/05/18 12:30 Labs: Laboratory Results - last 24 hr 08/05/18 08/05/18 08/05/18 12:30 12:30 12:30 WBC 6.1 RBC 5.15 Hgb 14.6 D Hct 42.8 MCV 83.1 D MCH 28.3 MCHC 34.1 RDW 14.6 H Plt Count 213 MPV 9.6 Neut % (Auto) 71.6 H Lymph % (Auto) 20.5 L Crisp % (Auto) 6.7 H Eos % (Auto) 1.0 L Baso % (Auto) 0.2 Lymph # (Auto) 1.3 Crisp # (Auto) 0.4 Eos # (Auto) 0.1 Baso # (Auto) 0.01 Absolute Neuts (auto) 4.40 pO2 36 VBG pH 7.43 VBG pCO2 40.0 VBG HCO3 26.5 VBG Total CO2 27.7 VBG O2 Sat (Calc) 75.1 H VBG Base Excess 2.0 VBG Potassium 2.7 L Sodium 127.0 L 127 L Chloride 78.0 L 79 L D Glucose 360 H Lactate 2.4 H FiO2 21.0 Crit Value Called To Maddy Crit Value Called By Ab Blood Gas Notified Time 1255 Potassium 2.8 L* Carbon Dioxide 24 Anion Gap 27 H BUN 13 Creatinine 0.6 L Est GFR ( Amer) > 60 Est GFR (Non-Af Amer) > 60 Random Glucose 342 H* D Calcium 9.2 Magnesium 1.9 Total Bilirubin 0.9 AST 30 ALT 36 Alkaline Phosphatase 135 H D Total Protein 7.5 Albumin 4.0 Globulin 3.5 Albumin/Globulin Ratio 1.2 Lipase 1162 H Venous Blood Potassium 2.7 L Alcohol, Quantitative 08/05/18 08/05/18 12:30 16:19 WBC RBC Hgb Hct MCV MCH MCHC RDW Plt Count MPV Neut % (Auto) Lymph % (Auto) Crisp % (Auto) Eos % (Auto) Baso % (Auto) Lymph # (Auto) Crisp # (Auto) Eos # (Auto) Baso # (Auto) Absolute Neuts (auto) pO2 190 H VBG pH 7.51 H VBG pCO2 39.0 L VBG HCO3 31.1 H VBG Total CO2 32.3 H VBG O2 Sat (Calc) 100.1 H VBG Base Excess 7.5 H VBG Potassium 3.3 L Sodium 126.0 L Chloride 84.0 L Glucose 239 H Lactate 2.2 H FiO2 21.0 Crit Value Called To Crit Value Called By Blood Gas Notified Time Potassium Carbon Dioxide Anion Gap BUN Creatinine Est GFR ( Amer) Est GFR (Non-Af Amer) Random Glucose Calcium Magnesium Total Bilirubin AST ALT Alkaline Phosphatase Total Protein Albumin Globulin Albumin/Globulin Ratio Lipase Venous Blood Potassium 3.3 L Alcohol, Quantitative < 10 Attending/Attestation - Attestation I have personally seen and examined this patient.: Yes I have fully participated in the care of the patient.: Yes I have reviewed all pertinent clinical information: Yes Notes (Text): 08/05/18 16:31 42 year old male with past medical history of alcohol/substance abuse and diabetes who presents with complaint of epigastric pain radiating to back and alcohol withdrawal (last drink was two days prior). Found to have alcoholic pancreatitis and hypokalemia/hyponatremia. Patient also reported left toe pain / discoloration and weight loss. Patient was counselled on alcohol abstinence. Continue with banana bag. Continue with ativan damien/prn for withdrawal symptoms. UTox is ordered. Continue with NPO, IVF, protonix, analgesics and antiemetics prn. CT abd/pelvis is ordered. GI evaluation is requested. Hyponatremia 127. Likely multifactorial as above. Will continue to monitor closely. Started on fluids. Will replete and repeat lytes (potassium). Will obtain xray of foot and LE doppler. Denys Cam MD Hospitalist.
[2018-08-05] MEDS ORDERED: Morphine 2 mg/ml ISec IVP PRN ×2 (15:12)
[2018-08-05 16:26] LABS: VENOUS BLOOD GAS BASE EXCESS 7.5 mmol/L (0.0-2.0); VENOUS BLOOD GAS PO2 190 mm/Hg (30-55); VENOUS BLOOD PH 7.51 (7.32-7.43)
[2018-08-05 16:40] LABS: BLOOD UREA NITROGEN 17 mg/dL (7-21); CALCIUM 9.1 mg/dL (8.4-10.5); GFR NON-AFRICAN AMERICAN > 60
--- NOTE | 2018-08-05 17:06 | CT ---
Date of service: 08/05/2018 PROCEDURE: CT Abdomen and Pelvis with contrast HISTORY: pancreatitis COMPARISON: 02/27/2016 TECHNIQUE: Contrast dose: 100 mL Omnipaque 350 Radiation dose: Total exam DLP = 251.24 mGy-cm. This CT exam was performed using one or more of the following dose reduction techniques: Automated exposure control, adjustment of the mA and/or kV according to patient size, and/or use of iterative reconstruction technique. FINDINGS: LOWER THORAX: Unremarkable. LIVER: Normal size and contour. Diffusely diminished attenuation consistent fatty infiltration. There is ill-defined region low attenuation in the medial segment of the left hepatic lobe abutting the fissure for the ligamentum but no some. Most likely normal variant due to a variant venous drainage. Minimal focal fatty sparing adjacent to the gallbladder fossa, best demonstrated on series 3, image 61. No other mass. No biliary dilatation. Smooth contour. GALLBLADDER AND BILE DUCTS: Unremarkable. PANCREAS: No mass. No ductal dilatation. No peripancreatic fluid or edema. SPLEEN: Unremarkable. ADRENALS: Unremarkable. No mass. KIDNEYS AND URETERS: Unremarkable. No hydronephrosis. No solid mass. VASCULATURE: Unremarkable. No aortic aneurysm. There is atherosclerotic calcification of the abdominal aorta and iliac vessels. BOWEL: There is short segment intussusception seen in the mid right abdomen on series 3, image 97 through 104 and best demonstrated on series 602, image 43. No evidence of bowel obstruction. Mild sigmoid diverticulosis without evidence of diverticulitis. APPENDIX: Normal appendix. PERITONEUM: Unremarkable. No free fluid. No free air. LYMPH NODES: Unremarkable. No enlarged lymph nodes. BLADDER: Poorly distended. Grossly unremarkable. REPRODUCTIVE: Normal prostate BONES: There is mild compression deformity of the T9 vertebral body new since prior examination of 02/27/2016, but of indeterminate age. OTHER FINDINGS: None. IMPRESSION: No evidence of pancreatitis. Small bowel intussusception in mid right abdomen. No bowel obstruction appreciated. Fatty infiltration of the liver with focal fatty sparing. Sigmoid diverticulosis without evidence of diverticulitis. Mild compression deformity of the T9 vertebral body of indeterminate age but new since 2016.
[2018-08-05] MEDS: Insulin Reg-MEDIUM-Coverage SC SCH ×2 (17:28→22:52)
[2018-08-05] MEDS ORDERED: Insulin Regular 1 UNITS/0.01 ML ML ONE ×2 (17:32→17:35)
--- NOTE | 2018-08-05 18:30 | RAD ---
Date of service: 08/05/2018 PROCEDURE: Left Foot Radiographs. HISTORY: r/o osteomyelitis anatomic area of interest: Unknown; not provided by referring, ordering physician COMPARISON: None. FINDINGS: BONES: Normal. No fracture. JOINTS: Normal. SOFT TISSUES: Normal. OTHER FINDINGS: None. IMPRESSION: No acute findings related to/ accounting for the clinical presentation.
--- NOTE | 2018-08-05 19:38 | CP.PCM.CON ---
History of Present Illness - History of Present Illness History of Present Illness: Surgery: Dr. Mora CC: Abd pain HPI: 42M w. pmh of DM, pancreatitis, and ETOH abuse presents to ED w. abdominal pain x 3 days. Pt states that the pain has been intermittent and located in the epigastric area. He has had similar pain in the past 2/2 ETOH pancreatitis. He states that he has also had 4-5 episodes of N/V per day over the last 4-5 days. Pt denies diarrhea/flatus/BM. He states that he has not had flatus/BM in over 1 month. He states that he has decreased appetite and has not eaten any substantial food over the past month and has subsequently lost about 45 pounds. He states that he currently drink 2-3 pints of vodka per day and has been doing this for the past month. He denies any F/C, no night sweats. In ED CT was done which showed intuscuception for which surgery was consulted PMH: EtOH abuse, DM, pancreatitis PSH: none NKDA Meds: MAR reviewed Social: +ETOH/Tobacco/cocaine/opioids Fhx: Father - Skin CA Review of Systems - Review of Systems All systems: reviewed and no additional remarkable complaints except (HPI) Past Patient History - Infectious Disease Hx of Infectious Diseases: None - Tetanus Immunizations Tetanus Immunization: Unknown - Past Medical History & Family History Past Medical History?: Yes - Past Social History Smoking Status: Heavy Smoker > 10 Cigarettes Daily - CARDIAC Hx Hypertension: No - PULMONARY Hx Tuberculosis: No - NEUROLOGICAL Hx Seizures: No - HEENT Hx HEENT Problems: No - RENAL Hx Chronic Kidney Disease: No - ENDOCRINE/METABOLIC Hx Endocrine Disorders: Yes Hx Diabetes Mellitus Type 2: Yes - HEMATOLOGICAL/ONCOLOGICAL Hx Cancer: No - INTEGUMENTARY Hx Dermatological Problems: No - MUSCULOSKELETAL/RHEUMATOLOGICAL Hx Musculoskeletal Disorders: Yes Hx Falls: Yes - GASTROINTESTINAL Hx Gastritis: Yes - GENITOURINARY/GYNECOLOGICAL Hx Sexually Transmitted Disorders: No - PSYCHIATRIC Hx Anxiety: Yes Hx Depression: No Hx Substance Use: No Other/Comment: ETOH - SURGICAL HISTORY Hx Surgeries: No - ANESTHESIA Hx Anesthesia: No Meds Allergies/Adverse Reactions: Allergies Allergy/AdvReac Type Severity Reaction Status Date / Time No Known Allergies Allergy Verified 07/20/18 15:46 - Medications Medications: Current Medications Heparin Sodium (Porcine) (Heparin) 5,000 units SC Q8 [facility]; Protocol Potassium Chloride (Potassium Chloride 10 Meq/100 Ml) 10 meq in 100 mls @ 50 mls/hr IVPB Q2H [facility] Stop: 08/05/18 20:59 Last Admin: 08/05/18 19:02 Dose: 50 mls/hr Multivitamins/Vitamin C 10 ml/Thiamine HCl 100 mg/ Folic Acid 1 mg/ Sodium Chloride 1,011.2 mls @ 150 mls/hr IV .Q6H45M ONE Stop: 08/06/18 01:44 Insulin Human Regular (Humulin R Med) 0 units SC ACHS [facility]; Protocol Last Admin: 08/05/18 17:28 Dose: 5 units Lorazepam (Ativan) 2 mg IVP Q4H [facility]; Protocol Last Admin: 08/05/18 17:25 Dose: 2 mg Lorazepam (Ativan) 2 mg IM Q2H PRN; Protocol PRN Reason: Symptoms of alcohol withdrawl Morphine Sulfate (Morphine) 2 mg IVP Q6H PRN PRN Reason: Pain, moderate (4-7) Nicotine (Nicoderm Cq) 1 patch TD DAILY [facility] Ondansetron HCl (Zofran Inj) 4 mg IVP Q6H PRN PRN Reason: Nausea/Vomiting Pantoprazole Sodium (Protonix Inj) 40 mg IVP DAILY [facility] Physical Exam - Constitutional Appears: Non-toxic, No Acute Distress, Unkempt - Head Exam Head Exam: ATRAUMATIC, NORMOCEPHALIC - Eye Exam Eye Exam: EOMI - ENT Exam ENT Exam: Mucous Membranes Moist - Neck Exam Neck exam: Positive for: Full Rom - Respiratory Exam Respiratory Exam: NORMAL BREATHING PATTERN. absent: Accessory Muscle Use, Resp iratory Distress - Cardiovascular Exam Cardiovascular Exam: Tachycardia - GI/Abdominal Exam GI & Abdominal Exam: Soft, Tenderness. absent: Distended, Firm, Guarding, Rebound, Rigid - Extremities Exam Extremities exam: Negative for: calf tenderness, pedal edema - Neurological Exam Neurological exam: Alert, Oriented x3 - Psychiatric Exam Psychiatric exam: Normal Affect, Normal Mood Results - Vital Signs Recent Vital Signs: Last Vital Signs Temp 98.2 F 08/05/18 18:55 Pulse 104 H 08/05/18 18:55 Resp 18 08/05/18 18:55 BP 134/84 08/05/18 18:55 Pulse Ox 95 08/05/18 18:55 - Labs Result Diagrams: 08/05/18 12:30 08/05/18 16:14 Labs: Laboratory Results - last 24 hr 08/05/18 08/05/18 08/05/18 03:00 12:30 12:30 WBC 6.1 RBC 5.15 Hgb 14.6 D Hct 42.8 MCV 83.1 D MCH 28.3 MCHC 34.1 RDW 14.6 H Plt Count 213 MPV 9.6 Neut % (Auto) 71.6 H Lymph % (Auto) 20.5 L Pike % (Auto) 6.7 H Eos % (Auto) 1.0 L Baso % (Auto) 0.2 Lymph # (Auto) 1.3 Pike # (Auto) 0.4 Eos # (Auto) 0.1 Baso # (Auto) 0.01 Absolute Neuts (auto) 4.40 pO2 36 VBG pH 7.43 VBG pCO2 40.0 VBG HCO3 26.5 VBG Total CO2 27.7 VBG O2 Sat (Calc) 75.1 H VBG Base Excess 2.0 VBG Potassium 2.7 L Sodium 127.0 L Chloride 78.0 L Glucose 360 H Lactate 2.4 H FiO2 21.0 Crit Value Called To Maddy Crit Value Called By Ab Blood Gas Notified Time 1255 Potassium Carbon Dioxide Anion Gap BUN Creatinine Est GFR ( Amer) Est GFR (Non-Af Amer) Random Glucose Serum Osmolality 278 Calcium Magnesium Total Bilirubin AST ALT Alkaline Phosphatase Total Protein Albumin Globulin Albumin/Globulin Ratio Lipase Venous Blood Potassium 2.7 L Ur Random Sodium Alcohol, Quantitative 08/05/18 08/05/18 08/05/18 12:30 12:30 16:14 WBC RBC Hgb Hct MCV MCH MCHC RDW Plt Count MPV Neut % (Auto) Lymph % (Auto) Pike % (Auto) Eos % (Auto) Baso % (Auto) Lymph # (Auto) Pike # (Auto) Eos # (Auto) Baso # (Auto) Absolute Neuts (auto) pO2 VBG pH VBG pCO2 VBG HCO3 VBG Total CO2 VBG O2 Sat (Calc) VBG Base Excess VBG Potassium Sodium 127 L 126 L Chloride 79 L D 82 L Glucose Lactate FiO2 Crit Value Called To Crit Value Called By Blood Gas Notified Time Potassium 2.8 L* 3.3 L Carbon Dioxide 24 29 Anion Gap 27 H 19 BUN 13 17 Creatinine 0.6 L 0.7 L Est GFR ( Amer) > 60 > 60 Est GFR (Non-Af Amer) > 60 > 60 Random Glucose 342 H* D 237 H Serum Osmolality Calcium 9.2 9.1 Magnesium 1.9 Total Bilirubin 0.9 AST 30 ALT 36 Alkaline Phosphatase 135 H D Total Protein 7.5 Albumin 4.0 Globulin 3.5 Albumin/Globulin Ratio 1.2 Lipase 1162 H Venous Blood Potassium Ur Random Sodium Alcohol, Quantitative < 10 08/05/18 08/05/18 16:19 17:48 WBC RBC Hgb Hct MCV MCH MCHC RDW Plt Count MPV Neut % (Auto) Lymph % (Auto) Pike % (Auto) Eos % (Auto) Baso % (Auto) Lymph # (Auto) Pike # (Auto) Eos # (Auto) Baso # (Auto) Absolute Neuts (auto) pO2 190 H VBG pH 7.51 H VBG pCO2 39.0 L VBG HCO3 31.1 H VBG Total CO2 32.3 H VBG O2 Sat (Calc) 100.1 H VBG Base Excess 7.5 H VBG Potassium 3.3 L Sodium 126.0 L Chloride 84.0 L Glucose 239 H Lactate 2.2 H FiO2 21.0 Crit Value Called To Crit Value Called By Blood Gas Notified Time Potassium Carbon Dioxide Anion Gap BUN Creatinine Est GFR ( Amer) Est GFR (Non-Af Amer) Random Glucose Serum Osmolality Calcium Magnesium Total Bilirubin AST ALT Alkaline Phosphatase Total Protein Albumin Globulin Albumin/Globulin Ratio Lipase Venous Blood Potassium 3.3 L Ur Random Sodium 14 Alcohol, Quantitative - Imaging and Cardiology CT scan - abdomen Status: Image reviewed by me, Report reviewed by me Assessment & Plan - Assessment and Plan (Free Text) Assessment: 42M w. ETOH pancreatitis and findings of intusscuception on CT -NPO -IVF -pain management -anti-emetics -will plan to repeat CT in upcoming days -serial abd exams in interim -d/w attending Nohemy PGY4
[2018-08-05] MEDS: Lactated Ringer's 1,000 ML IV SCH (23:14)
[2018-08-06] MEDS: Lactated Ringer's 1,000 ML IV SCH (06:25)
[2018-08-06 07:18] LABS: BASO # 0.01 K/mm3 (0.0-2.0); BASO % 0.2 % (0.0-3.0); EOS # 0.1 (0.0-0.7); EOS % 2.6 % (1.5-5.0); LYMPH # 2.1 (1.2-3.4); LYMPH % 46.3 % (22.0-35.0); MEAN CORPUSCULAR HEMOGLOBIN 27.5 pg (25.0-35.0); MEAN CORPUSCULAR HGB CONC 32.7 g/dl (31.0-37.0); MEAN PLATELET VOLUME 10.4 fl (7.0-11.0); MONO # 0.6 (0.1-0.6); MONO % 13.2 % (1.0-6.0); RBC 4.55 10^6/uL (3.5-6.1); RED CELL DISTRIBUTION WIDTH 14.7 % (11.5-14.5); WHITE BLOOD COUNT 4.6 10^3/uL (4.5-11.0)
[2018-08-06 07:22] LABS: HEMOGLOBIN 12.5 g/dL (14.0-18.0)
[2018-08-06 07:53] LABS: LDL CHOLESTEROL 44 mg/dL (0-129)
[2018-08-06 08:05] LABS: ALB/GLOB RATIO 1.1 (1.1-1.8); ALBUMIN 3.2 g/dL (3.0-4.8); ALT/SGPT 32 U/L (7-56); AST/SGOT 31 U/L (17-59); BLOOD UREA NITROGEN 14 mg/dL (7-21); CALCIUM 8.7 mg/dL (8.4-10.5); GFR NON-AFRICAN AMERICAN > 60; HDL CHOLESTEROL 41 mg/dL (29-60)
[2018-08-06] MEDS ORDERED: Potassium Chloride 20 mEq ER Tab PO STA (08:39)
[2018-08-06] MEDS: Insulin Reg-MEDIUM-Coverage SC SCH ×4 (08:56→22:55)
--- NOTE | 2018-08-06 09:15 | US ---
PROCEDURE: Lower extremity JAYNE exam HISTORY: Peripheral vascular disease with pain and claudication. Smoker. Diabetes. PHYSICIAN(S): Josh Johns MD. FINDINGS: The resting JAYNE's are normal: right, 1.17and left, 1.33. The brachial systolic pressures are symmetric. The high thigh pressures and waveforms are relatively normal. The calf PVR waveforms augment normally. No significant gradients are noted across the thighs. The ankle and metatarsal waveforms are relatively normal and symmetric. No significant pressure gradients are noted across the lower legs. IMPRESSION: 1. Normal JAYNE and PVR examination at rest.
--- NOTE | 2018-08-06 09:45 | CP.PCM.CON ---
History of Present Illness - History of Present Illness History of Present Illness: Podiatry consult note - Drs. Jackson/Ashish 42M with pmhx of polysubstance abuse (EtOH, cocaine, heroin, benzos), DM2 (last A1C 10.3), and gastritis seen and evaluated at bedside for diabetic risk assessment. Patient asleep at time of visit. Patient is irritable and does not respond to questions in specifics in regards to foot history. States he is not in any pain and does not have any complaints with his feet at this time. Denies N/V/F/C/SOB/CP. PMHx: above PSHx: denies All: NKDA Past Patient History - Infectious Disease Hx of Infectious Diseases: None - Tetanus Immunizations Tetanus Immunization: Unknown - Past Medical History & Family History Past Medical History?: Yes - Past Social History Smoking Status: Heavy Smoker > 10 Cigarettes Daily - CARDIAC Hx Hypertension: No - PULMONARY Hx Tuberculosis: No Other/Comment: Currently smokes 2 ppd - NEUROLOGICAL Hx Seizures: No - HEENT Hx HEENT Problems: No - RENAL Hx Chronic Kidney Disease: No - ENDOCRINE/METABOLIC Hx Endocrine Disorders: Yes Hx Diabetes Mellitus Type 2: Yes - HEMATOLOGICAL/ONCOLOGICAL Hx Cancer: No - INTEGUMENTARY Hx Dermatological Problems: No - MUSCULOSKELETAL/RHEUMATOLOGICAL Hx Back Pain: Yes Hx Falls: Yes - GASTROINTESTINAL Hx Gastritis: Yes - GENITOURINARY/GYNECOLOGICAL Hx Sexually Transmitted Disorders: No - PSYCHIATRIC Hx Anxiety: Yes Hx Depression: No Other/Comment: ETOH - SURGICAL HISTORY Hx Surgeries: No - ANESTHESIA Hx Anesthesia: No Meds Allergies/Adverse Reactions: Allergies Allergy/AdvReac Type Severity Reaction Status Date / Time No Known Allergies Allergy Verified 07/20/18 15:46 - Medications Medications: Current Medications Heparin Sodium (Porcine) (Heparin) 5,000 units SC Q8 [facility]; Protocol Last Admin: 08/06/18 06:24 Dose: 5,000 units Lactated Ringer's (Lactated Ringer's) 1,000 mls @ 150 mls/hr IV .Q6H40M [facility] Last Admin: 08/06/18 06:25 Dose: 150 mls/hr Potassium Chloride (Potassium Chloride 10 Meq/100 Ml) 10 meq in 100 mls @ 50 mls/hr IVPB Q2H [facility] Stop: 08/06/18 12:59 Insulin Human Regular (Humulin R Med) 0 units SC ACHS [facility]; Protocol Last Admin: 08/06/18 08:56 Dose: Not Given Lorazepam (Ativan) 2 mg IVP Q4H [facility]; Protocol Last Admin: 08/06/18 09:03 Dose: 2 mg Lorazepam (Ativan) 2 mg IVP Q2H PRN; Protocol PRN Reason: Symptoms of alcohol withdrawl Last Admin: 08/05/18 22:13 Dose: 2 mg Morphine Sulfate (Morphine) 2 mg IVP Q6H PRN PRN Reason: Pain, moderate (4-7) Nicotine (Nicoderm Cq) 1 patch TD DAILY [facility] Last Admin: 08/05/18 22:16 Dose: 1 patch Ondansetron HCl (Zofran Inj) 4 mg IVP Q6H PRN PRN Reason: Nausea/Vomiting Last Admin: 08/05/18 22:12 Dose: 4 mg Pantoprazole Sodium (Protonix Inj) 40 mg IVP DAILY [facility] Physical Exam - Constitutional Appears: Non-toxic - Head Exam Head Exam: NORMOCEPHALIC - Extremities Exam Additional comments: VASC: DP and PT pulses palpable; cap refill <3 seconds to all digits; temp gradient warm to cool; pedal hair growth diminished; no edema noted ORTHO: hammertoe deformities to 2-5 digits b/l; no pain on palpation of feet; no pain or difficulty on ROM of the ankle or first MPJ DERM: skin temp and turgor within normal limits; right third digit superficial abrasion, healed; no open lesions or wounds present; mild xerosis of the plantar aspects of feet b/l NEURO: gross and protective sensation intact - Neurological Exam Neurological exam: Alert - Psychiatric Exam Psychiatric exam: Normal Affect, Normal Mood Results - Vital Signs Recent Vital Signs: Last Vital Signs Temp 98.1 F 08/06/18 06:00 Pulse 108 H 08/06/18 06:00 Resp 20 08/06/18 06:00 BP 110/79 08/06/18 06:00 Pulse Ox 95 08/06/18 06:00 - Labs Result Diagrams: 08/06/18 07:00 08/06/18 07:00 Labs: Laboratory Results - last 24 hr 08/05/18 08/05/18 08/05/18 03:00 12:30 12:30 WBC 6.1 RBC 5.15 Hgb 14.6 D Hct 42.8 MCV 83.1 D MCH 28.3 MCHC 34.1 RDW 14.6 H Plt Count 213 MPV 9.6 Neut % (Auto) 71.6 H Lymph % (Auto) 20.5 L [place] % (Auto) 6.7 H Eos % (Auto) 1.0 L Baso % (Auto) 0.2 Lymph # (Auto) 1.3 [place] # (Auto) 0.4 Eos # (Auto) 0.1 Baso # (Auto) 0.01 Absolute Neuts (auto) 4.40 pO2 36 VBG pH 7.43 VBG pCO2 40.0 VBG HCO3 26.5 VBG Total CO2 27.7 VBG O2 Sat (Calc) 75.1 H VBG Base Excess 2.0 VBG Potassium 2.7 L Sodium 127.0 L Chloride 78.0 L Glucose 360 H Lactate 2.4 H FiO2 21.0 Crit Value Called To Maddy Crit Value Called By Ab Blood Gas Notified Time 1255 Potassium Carbon Dioxide Anion Gap BUN Creatinine Est GFR ( Amer) Est GFR (Non-Af Amer) Random Glucose Hemoglobin A1c Serum Osmolality 278 Calcium Phosphorus Magnesium Total Bilirubin AST ALT Alkaline Phosphatase Total Protein Albumin Globulin Albumin/Globulin Ratio Triglycerides Cholesterol LDL Cholesterol Direct HDL Cholesterol Lipase Venous Blood Potassium 2.7 L Ur Random Sodium Alcohol, Quantitative 08/05/18 08/05/18 08/05/18 12:30 12:30 12:30 WBC RBC Hgb Hct MCV MCH MCHC RDW Plt Count MPV Neut % (Auto) Lymph % (Auto) [place] % (Auto) Eos % (Auto) Baso % (Auto) Lymph # (Auto) [place] # (Auto) Eos # (Auto) Baso # (Auto) Absolute Neuts (auto) pO2 VBG pH VBG pCO2 VBG HCO3 VBG Total CO2 VBG O2 Sat (Calc) VBG Base Excess VBG Potassium Sodium 127 L Chloride 79 L D Glucose Lactate FiO2 Crit Value Called To Crit Value Called By Blood Gas Notified Time Potassium 2.8 L* Carbon Dioxide 24 Anion Gap 27 H BUN 13 Creatinine 0.6 L Est GFR ( Amer) > 60 Est GFR (Non-Af Amer) > 60 Random Glucose 342 H* D Hemoglobin A1c 7.6 H D Serum Osmolality Calcium 9.2 Phosphorus Magnesium 1.9 Total Bilirubin 0.9 AST 30 ALT 36 Alkaline Phosphatase 135 H D Total Protein 7.5 Albumin 4.0 Globulin 3.5 Albumin/Globulin Ratio 1.2 Triglycerides Cholesterol LDL Cholesterol Direct HDL Cholesterol Lipase 1162 H Venous Blood Potassium Ur Random Sodium Alcohol, Quantitative < 10 08/05/18 08/05/18 08/05/18 16:14 16:19 17:48 WBC RBC Hgb Hct MCV MCH MCHC RDW Plt Count MPV Neut % (Auto) Lymph % (Auto) [place] % (Auto) Eos % (Auto) Baso % (Auto) Lymph # (Auto) [place] # (Auto) Eos # (Auto) Baso # (Auto) Absolute Neuts (auto) pO2 190 H VBG pH 7.51 H VBG pCO2 39.0 L VBG HCO3 31.1 H VBG Total CO2 32.3 H VBG O2 Sat (Calc) 100.1 H VBG Base Excess 7.5 H VBG Potassium 3.3 L Sodium 126 L 126.0 L Chloride 82 L 84.0 L Glucose 239 H Lactate 2.2 H FiO2 21.0 Crit Value Called To Crit Value Called By Blood Gas Notified Time Potassium 3.3 L Carbon Dioxide 29 Anion Gap 19 BUN 17 Creatinine 0.7 L Est GFR ( Amer) > 60 Est GFR (Non-Af Amer) > 60 Random Glucose 237 H Hemoglobin A1c Serum Osmolality Calcium 9.1 Phosphorus Magnesium Total Bilirubin AST ALT Alkaline Phosphatase Total Protein Albumin Globulin Albumin/Globulin Ratio Triglycerides Cholesterol LDL Cholesterol Direct HDL Cholesterol Lipase Venous Blood Potassium 3.3 L Ur Random Sodium 14 Alcohol, Quantitative 08/06/18 08/06/18 07:00 07:00 WBC 4.6 D RBC 4.55 Hgb 12.5 L D Hct 38.2 L MCV 84.0 MCH 27.5 MCHC 32.7 RDW 14.7 H Plt Count 216 MPV 10.4 Neut % (Auto) 37.7 L Lymph % (Auto) 46.3 H [place] % (Auto) 13.2 H Eos % (Auto) 2.6 Baso % (Auto) 0.2 Lymph # (Auto) 2.1 [place] # (Auto) 0.6 Eos # (Auto) 0.1 Baso # (Auto) 0.01 Absolute Neuts (auto) 1.72 pO2 VBG pH VBG pCO2 VBG HCO3 VBG Total CO2 VBG O2 Sat (Calc) VBG Base Excess VBG Potassium Sodium 132 Chloride 93 L Glucose Lactate FiO2 Crit Value Called To Crit Value Called By Blood Gas Notified Time Potassium 3.3 L Carbon Dioxide 30 Anion Gap 13 BUN 14 Creatinine 0.7 L Est GFR ( Amer) > 60 Est GFR (Non-Af Amer) > 60 Random Glucose 222 H Hemoglobin A1c Serum Osmolality Calcium 8.7 Phosphorus 2.4 L Magnesium 1.9 Total Bilirubin 0.7 AST 31 ALT 32 Alkaline Phosphatase 98 Total Protein 6.1 Albumin 3.2 Globulin 3.0 Albumin/Globulin Ratio 1.1 Triglycerides 93 Cholesterol 100 L LDL Cholesterol Direct 44 HDL Cholesterol 41 Lipase Venous Blood Potassium Ur Random Sodium Alcohol, Quantitative Assessment & Plan - Assessment and Plan (Free Text) Assessment: 42M with pmhx of polysubstance abuse (EtOH, cocaine, heroin, benzos), DM2 (last A1C 10.3), and gastritis seen and evaluated for diabetic risk assessment Plan: Patient seen and evaluated Discussed in detail with Dr. Jackson VSS Clotrimazole ordered - apply to plantar aspects of feet daily Lotion applied today to feet Podiatry to sign off, please reconsult if acute problems present Thank you for the consult - Date & Time Date: 08/06/18 Time: 09:49
--- NOTE | 2018-08-06 09:56 | CON ---
DATE: 08/06/2018 HISTORY OF PRESENT ILLNESS: I saw Mr. Goncalves this morning. He is a 42-year-old white male known to this gis consultant from previous admissions with past history of alcohol abuse withdrawal and pancreatitis. According to the notes in [facility], the patient has not eaten significantly for the past several weeks, also he has been drinking a substantial amount of vodka on a daily basis. The patient was admitted because of recurrent abdominal pain, nausea and vomiting over the past couple of days. There is no evidence at least from the patient's history of hematemesis or rectal bleeding. PAST MEDICAL HISTORY: Indicated above as significant alcohol abuse, also heroin use, gastritis, type 2 diabetes. MEDICATIONS: At home include BuSpar, Lantus, Januvia, trazodone, Seroquel, gabapentin and omeprazole. PHYSICAL EXAMINATION: VITAL SIGNS: I reviewed this patient's vital signs. HEENT: Will be done. LUNGS: Decreased breath sounds, basilar. HEART: Regular rhythm. ABDOMEN: Not distended but tender in the area of the epigastric as well as the left upper quadrant. LABORATORY DATA: Indicated white count of 6000 with an H and H of 14/42, platelet count 213. Chemistry is significant for hyponatremia, hypokalemia. Glucose ranging from 237-342. Lipase of 162. Evaluation of the images and CT report indicated fatty liver, gallbladder wall unremarkable. Pancreas and spleen unremarkable. ASSESSMENT AND PLAN: This is a 42-year-old white male with past medical history of multi-substance abuse, admitted with probable pancreatitis based on alcohol intake. The patient is a poor historian, would not really discuss much other than several words. Review of the patient's orders indicated the patient has been treated for diabetes with insulin and he has lactated Ringer's on board, analgesic and a PPI. This appears to be appropriate. Did see issue of possible slight degree of intussusception noted on CT scan. Surgical consult has been called. Yung Fernandez DO, PhD [facility]ENTERClovis
[2018-08-06] MEDS ORDERED: Clotrimazole 1% Top Soln(10 ml) TOP SCH ×2 (10:00→18:03)
--- NOTE | 2018-08-06 10:09 | CP.PCM.PN ---
Subjective - Date & Time of Evaluation Date of Evaluation: 08/06/18 Time of Evaluation: 10:00 - Subjective Subjective: Surgery Progress Note- Dr. Mora Patient seen and examined at bedside. Received 6mg of Ativan since midnight. Patient is slow to respond however following commands, however oriented to person only. Easily reoriented to place and time. states he has an appetite and would like to eat at least jello. Vitals re-taken at bedside 98.1 101 137/99 + Flatus. -BM overnight Objective - Vital Signs/Intake and Output Vital Signs (last 24 hours): Temp Pulse Resp BP Pulse Ox 98.1 F 108 H 20 110/79 95 08/06/18 06:00 08/06/18 06:00 08/06/18 06:00 08/06/18 06:00 08/06/18 06:00 Intake and Output: 08/06/18 08/06/18 06:59 18:59 Intake Total 1800 Output Total 400 Balance 1400 - Medications Medications: Current Medications Clotrimazole (Lotrimin Af 1%) 0 ml TOP BID [facility] Heparin Sodium (Porcine) (Heparin) 5,000 units SC Q8 [facility]; Protocol Last Admin: 08/06/18 06:24 Dose: 5,000 units Lactated Ringer's (Lactated Ringer's) 1,000 mls @ 150 mls/hr IV .Q6H40M [facility] Last Admin: 08/06/18 06:25 Dose: 150 mls/hr Potassium Chloride (Potassium Chloride 10 Meq/100 Ml) 10 meq in 100 mls @ 50 mls/hr IVPB Q2H [facility] Stop: 08/06/18 13:59 Insulin Human Regular (Humulin R Med) 0 units SC ACHS [facility]; Protocol Last Admin: 08/06/18 08:56 Dose: Not Given Lorazepam (Ativan) 2 mg IVP Q4H [facility]; Protocol Last Admin: 08/06/18 09:03 Dose: 2 mg Lorazepam (Ativan) 2 mg IVP Q2H PRN; Protocol PRN Reason: Symptoms of alcohol withdrawl Last Admin: 08/05/18 22:13 Dose: 2 mg Morphine Sulfate (Morphine) 2 mg IVP Q6H PRN PRN Reason: Pain, moderate (4-7) Nicotine (Nicoderm Cq) 1 patch TD DAILY [facility] Last Admin: 08/05/18 22:16 Dose: 1 patch Ondansetron HCl (Zofran Inj) 4 mg IVP Q6H PRN PRN Reason: Nausea/Vomiting Last Admin: 08/05/18 22:12 Dose: 4 mg Pantoprazole Sodium (Protonix Inj) 40 mg IVP DAILY [facility] - Labs Labs: 08/06/18 07:00 08/06/18 07:00 - Constitutional Appears: Non-toxic, No Acute Distress - Head Exam Head Exam: ATRAUMATIC - Eye Exam Eye Exam: EOMI. absent: Scleral icterus - ENT Exam ENT Exam: Mucous Membranes Moist - Respiratory Exam Respiratory Exam: NORMAL BREATHING PATTERN. absent: Accessory Muscle Use, Respiratory Distress - Cardiovascular Exam Cardiovascular Exam: Tachycardia, REGULAR RHYTHM. absent: Bradycardia - GI/Abdominal Exam GI & Abdominal Exam: Soft. absent: Distended, Firm, Guarding, Rigid, Tenderness - Extremities Exam Extremities Exam: absent: Calf Tenderness - Neurological Exam Neurological Exam: Alert, Awake. absent: Oriented x3 - Psychiatric Exam Psychiatric exam: Normal Affect - Skin Skin Exam: Warm Assessment and Plan - Assessment and Plan (Free Text) Assessment: 42M w/ etoh pancreatitis w/ ?intussusception on CT scan Plan: - aggressive fluid resuscitation - will need dietary consult; patient has not had PO and substantial intake over 1 month. Pt at risk for re-feeding syndrome - If pt mental status declines recommend CT scan of head - plan for staged CT of Abd w/ PO contrast to determine if intussusception resolved. - no acute surgical intervention at this time - will follow along closely - d/w Dr. Mora surgical attending
[2018-08-06] MEDS ORDERED: POTASSIUM PHOSPHATE IV SCH (10:14)
[2018-08-06] MEDS ORDERED: LACTATED RINGER S IV SCH (10:14)
--- NOTE | 2018-08-06 12:46 | CARD ---
APPROVED REPORT Date of service: 08/05/2018 EKG Measurement Heart [id number] <Conclusion> Sinus tachycardia Right atrial enlargement Left axis deviation Tall P in 2,3,AVF Suggestive of Ch. Lung Disease.
[2018-08-06] MEDS ORDERED: Potassium & Sodium Phosphate PO STA (13:48)
[2018-08-06] MEDS: Folic Acid 1 MG, Thiamine 100 MG, Multivitamin (MVI) 10 ML in Dextrose 5% In Water 1,00... IV SCH ×2 (14:40→20:40)
--- NOTE | 2018-08-06 16:15 | CP.PCM.PN ---
<Darwin Cruz - Last Filed: 08/06/18 16:28> Subjective - Date & Time of Evaluation Date of Evaluation: 08/06/18 Time of Evaluation: 07:15 - Subjective Subjective: Darwin Cruz DO, PGY-1 Hospitalist Progress Note for Dr. Cam Patient was seen and examined at bedside this AM. Per RN reports CIWA score overnight of 11. He does not appear to be agitated at this time and is alert and responsive. He states he has not had any tremors or other seizure like activity. He feels thirsty and would like to eat and drink. Objective - Vital Signs/Intake and Output Vital Signs (last 24 hours): Temp Pulse Resp BP Pulse Ox 98.2 F 97 H 18 120/90 95 08/06/18 12:00 08/06/18 12:00 08/06/18 12:00 08/06/18 12:00 08/06/18 06:00 Intake and Output: 08/06/18 08/06/18 06:59 18:59 Intake Total 1800 Output Total 400 800 Balance 1400 -800 - Medications Medications: Current Medications Clotrimazole (Lotrimin Af 1%) 0 ml TOP BID [facility] Last Admin: 08/06/18 10:21 Dose: 1 applic Heparin Sodium (Porcine) (Heparin) 5,000 units SC Q8 [facility]; Protocol Last Admin: 08/06/18 13:28 Dose: 5,000 units Folic Acid 1 mg/ Thiamine HCl 100 mg/ Multivitamins/Vitamin C 10 ml/ Dextrose 1,011.2 mls @ 100 mls/hr IV .Q10H7M [facility] Last Admin: 08/06/18 14:40 Dose: 100 mls/hr Insulin Human Regular (Humulin R Med) 0 units SC ACHS [facility]; Protocol Last Admin: 08/06/18 11:52 Dose: 8 units Lorazepam (Ativan) 1 mg IVP Q4H [facility]; Protocol Lorazepam (Ativan) 1 mg IVP Q3H PRN; Protocol PRN Reason: Agitation Morphine Sulfate (Morphine) 2 mg IVP Q6H PRN PRN Reason: Pain, moderate (4-7) Nicotine (Nicoderm Cq) 1 patch TD DAILY [facility] Last Admin: 08/06/18 10:21 Dose: 1 patch Ondansetron HCl (Zofran Inj) 4 mg IVP Q6H PRN PRN Reason: Nausea/Vomiting Last Admin: 08/05/18 22:12 Dose: 4 mg Pantoprazole Sodium (Protonix Inj) 40 mg IVP DAILY [facility] Last Admin: 08/06/18 10:22 Dose: 40 mg - Labs Labs: 08/06/18 07:00 08/06/18 07:00 - Constitutional Appears: Non-toxic, No Acute Distress - Head Exam Head Exam: ATRAUMATIC, NORMOCEPHALIC - Eye Exam Eye Exam: EOMI, Normal appearance, PERRL - ENT Exam ENT Exam: Mucous Membranes Moist - Neck Exam Neck Exam: Full ROM, Normal Inspection - Respiratory Exam Respiratory Exam: Clear to Ausculation Bilateral, NORMAL BREATHING PATTERN. absent: Rales, Rhonchi, Wheezes - Cardiovascular Exam Cardiovascular Exam: REGULAR RHYTHM, RRR, +S1, +S2. absent: Gallop, Rubs, Murmur - GI/Abdominal Exam GI & Abdominal Exam: Soft, Normal Bowel Sounds. absent: Guarding, Tenderness - Extremities Exam Extremities Exam: absent: Pedal Edema Additional comments: multiple lacerations on LE b/l, R foot wound appears clean and dry compared to yesterday's exam - Neurological Exam Neurological Exam: Alert, Awake, Oriented x3 - Psychiatric Exam Psychiatric exam: Anxious - Skin Skin Exam: Dry, Intact, Warm Assessment and Plan - Assessment and Plan (Free Text) Assessment: 42 yo M with PMH of polysubstance abuse (EtOH, cocaine, heroin, benzos), DM2 (last A1C 10.3), and gastritis presents with recurrent alcoholic pancreatitis. Plan: Pancreatitis 2/2 chronic EtOH abuse Liquid diet per GI recs IVF changed to D5W with vitamin supplementation at 150 cc/hr per surgery recs Continue protonix 40 mg IVP daily Continue morphine 2 mg q6h IVP for pain control Zofran 4 mg q6h IVP for nausea/vomiting Check Mg/Phos levels, replete as needed GI following as patient admitted history of prior episodes of hematemesis and recent EGD Per GI, no prior records of recent EGD or hx of hematemesis but ok to start on liquid diet EtOH Abuse Continue CIWA protocol Latest CIWA score of 9 but patient does not appear agitated or tremulous on exam Decrease scheduled ativan to 1 mg q4h scheduled at 1 mg q3h PRN for agitatio n/withdrawal sx's Upper GI Intussusception on CTAP Found on CTAP completed last night Surgery consulted Dietary consult and fluid resuscitation in place At risk for re-feeding syndrome so will await dietary recs Surgery plans on repeating CTAP with PO contrast to verify resolution of intussusception Follow up further surgery recs Hypokalemia Likely 2/2 poor PO intake vs GI losses Has remained low at 3.3 this AM Repleted with IV K riders Recheck in AM Hyponatremia Urine Na low c/w alcohol induced hyponatremia Has now resolved following NS Continue to monitor Uncontrolled DM2 A1c this admission 7.6 improved from last admission Likely lower 2/2 poor PO intake, weight loss, and malnutrition Hold home anti-hyperglycemic agents ISS while admitted Tachycardia on admission Likely 2/2 EtOH withdrawal vs electrolyte imbalances Continue to monitor electrolytes, replete as needed Has remained in high 90s to low 100s Continue to monitor L foot wound/decreased LLE pulses Patient admits to poor follow up and poor diabetic foot care Podiatry has evaluated patient for foot care, recs appreciated LLE arterial doppler negative for PVD DVT/GI PPX: SC heparin/protonix Full Code Liquid diet per GI recs Monitor on telemetry Patient seen, examined, and plan discussed with my attending Dr. Tutu Cruz, [place].Jos[place]ito. IM Resident PGY-1 Pager: [phone] <Denys Cma - Last Filed: 08/06/18 16:42> Objective - Vital Signs/Intake and Output Vital Signs (last 24 hours): Temp Pulse Resp BP Pulse Ox 98.2 F 97 H 18 120/90 95 08/06/18 12:00 08/06/18 12:00 08/06/18 12:00 08/06/18 12:00 08/06/18 06:00 Intake and Output: 08/06/18 08/06/18 06:59 18:59 Intake Total 1800 Output Total 400 800 Balance 1400 -800 - Medications Medications: Current Medications Clotrimazole (Lotrimin Af 1%) 0 ml TOP BID [facility] Last Admin: 08/06/18 10:21 Dose: 1 applic Heparin Sodium (Porcine) (Heparin) 5,000 units SC Q8 [facility]; Protocol Last Admin: 08/06/18 13:28 Dose: 5,000 units Folic Acid 1 mg/ Thiamine HCl 100 mg/ Multivitamins/Vitamin C 10 ml/ Dextrose 1,011.2 mls @ 100 mls/hr IV .Q10H7M [facility] Last Admin: 08/06/18 14:40 Dose: 100 mls/hr Insulin Human Regular (Humulin R Med) 0 units SC ACHS [facility]; Protocol Last Admin: 08/06/18 11:52 Dose: 8 units Lorazepam (Ativan) 1 mg IVP Q4H [facility]; Protocol Last Admin: 08/06/18 16:15 Dose: 1 mg Lorazepam (Ativan) 1 mg IVP Q3H PRN; Protocol PRN Reason: Agitation Morphine Sulfate (Morphine) 2 mg IVP Q6H PRN PRN Reason: Pain, moderate (4-7) Nicotine (Nicoderm Cq) 1 patch TD DAILY [facility] Last Admin: 08/06/18 10:21 Dose: 1 patch Ondansetron HCl (Zofran Inj) 4 mg IVP Q6H PRN PRN Reason: Nausea/Vomiting Last Admin: 08/05/18 22:12 Dose: 4 mg Pantoprazole Sodium (Protonix Inj) 40 mg IVP DAILY [facility] Last Admin: 08/06/18 10:22 Dose: 40 mg - Labs Labs: 08/06/18 07:00 08/06/18 07:00 Attending/Attestation - Attestation I have personally seen and examined this patient.: Yes I have fully participated in the care of the patient.: Yes I have reviewed all pertinent clinical information, including history, physical exam and plan: Yes Notes (Text): 08/06/18 16:39 42 year old male with past medical history of alcohol/substance abuse and diabetes who presented with complaint of epigastric pain radiating to back and alcohol withdrawal (last drink was two days prior). He was found to have alcoholic pancreatitis with elevated lipase and CT findings showing intussusepcion. GI and surgery evaluation were appreciated. Continue with serial abdominal exams; consider repeat CT abd/pelvis in few days for follow up. Diet advanced to clear liquids for now. Patient was counselled on alcohol abstinence. Continue with banana bag. Continue with ativan damien/prn for withdrawal symptoms. Hyponatremia has resolved. Will replete and repeat potassium. Xray of foot was negative and LE doppler is pending. Denys Cam MD Hospitalist.
[2018-08-06 17:12] LABS: BLOOD UREA NITROGEN 11 mg/dL (7-21); CALCIUM 8.5 mg/dL (8.4-10.5); GFR NON-AFRICAN AMERICAN > 60
[2018-08-06] MEDS ORDERED: Potassium Chloride 40 mEq/30 ml LIQ UD PO ONE (17:50)
[2018-08-07] MEDS ORDERED: Insulin Lispro 1 UNITS/0.01 ML SC ONE ×2 (02:09→23:37)
[2018-08-07 07:35] LABS: BASO # 0.02 K/mm3 (0.0-2.0); BASO % 0.5 % (0.0-3.0); EOS # 0.1 (0.0-0.7); EOS % 2.9 % (1.5-5.0); HEMOGLOBIN 12.1 g/dL (14.0-18.0); LYMPH # 2.1 (1.2-3.4); LYMPH % 49.4 % (22.0-35.0); MEAN CELL VOLUME 83.9 fl (80.0-105.0); MEAN CORPUSCULAR HGB CONC 32.2 g/dl (31.0-37.0); MEAN PLATELET VOLUME 9.9 fl (7.0-11.0); MONO # 0.5 (0.1-0.6); MONO % 11.3 % (1.0-6.0); RBC 4.48 10^6/uL (3.5-6.1); RED CELL DISTRIBUTION WIDTH 14.7 % (11.5-14.5); WHITE BLOOD COUNT 4.2 10^3/uL (4.5-11.0)
[2018-08-07 07:54] LABS: ALBUMIN 3.2 g/dL (3.0-4.8); ALT/SGPT 33 U/L (7-56); AST/SGOT 32 U/L (17-59); BLOOD UREA NITROGEN 7 mg/dL (7-21); CALCIUM 8.6 mg/dL (8.4-10.5); GFR NON-AFRICAN AMERICAN > 60
--- NOTE | 2018-08-07 07:58 | CP.PCM.PN ---
Subjective - Date & Time of Evaluation Date of Evaluation: 08/07/18 Time of Evaluation: 07:56 - Subjective Subjective: Resident Progress Note for Surgery: Dr. Mora Patient examined at bedside. Mental status is improved. CIWA score 6 this morning. Patient is tolerating liquid diet, requests to be advanced to regular diet. Objective - Vital Signs/Intake and Output Vital Signs (last 24 hours): Temp Pulse Resp BP Pulse Ox 98.2 F 96 H 18 111/79 100 08/07/18 06:00 08/07/18 06:00 08/07/18 06:00 08/07/18 06:00 08/07/18 06:00 Intake and Output: 08/07/18 08/07/18 06:59 18:59 Intake Total 2640 Output Total 2350 Balance 290 - Medications Medications: Current Medications Clotrimazole (Lotrimin Af 1%) 1 ml TOP BID [facility] Heparin Sodium (Porcine) (Heparin) 5,000 units SC Q8 [facility]; Protocol Last Admin: 08/07/18 05:42 Dose: 5,000 units Folic Acid 1 mg/ Thiamine HCl 100 mg/ Multivitamins/Vitamin C 10 ml/ Dextrose 1,011.2 mls @ 100 mls/hr IV .Q10H7M [facility] Last Admin: 08/06/18 20:40 Dose: 100 mls/hr Insulin Human Regular (Humulin R Med) 0 units SC ACHS [facility]; Protocol Last Admin: 08/06/18 22:55 Dose: 2 units Lorazepam (Ativan) 1 mg IVP Q4H [facility]; Protocol Last Admin: 08/07/18 07:48 Dose: Not Given Lorazepam (Ativan) 1 mg IVP Q3H PRN; Protocol PRN Reason: Agitation Last Admin: 08/06/18 21:11 Dose: 1 mg Morphine Sulfate (Morphine) 2 mg IVP Q6H PRN PRN Reason: Pain, moderate (4-7) Nicotine (Nicoderm Cq) 1 patch TD DAILY [facility] Last Admin: 08/06/18 10:21 Dose: 1 patch Ondansetron HCl (Zofran Inj) 4 mg IVP Q6H PRN PRN Reason: Nausea/Vomiting Last Admin: 08/06/18 21:26 Dose: 4 mg Pantoprazole Sodium (Protonix Inj) 40 mg IVP DAILY [facility] Last Admin: 08/06/18 10:22 Dose: 40 mg - Labs Labs: 08/07/18 07:15 08/07/18 07:15 - Additional Findings Additional findings: - Constitutional Appears: Non-toxic, No Acute Distress - Head Exam Head Exam: ATRAUMATIC - Eye Exam Eye Exam: EOMI. absent: Scleral icterus - ENT Exam ENT Exam: Mucous Membranes Moist - Respiratory Exam Respiratory Exam: NORMAL BREATHING PATTERN. absent: Accessory Muscle Use, Respiratory Distress - Cardiovascular Exam Cardiovascular Exam: Tachycardia, REGULAR RHYTHM. absent: Bradycardia - GI/Abdominal Exam GI & Abdominal Exam: Soft. absent: Distended, Firm, Guarding, Rigid, Tenderness - Extremities Exam Extremities Exam: absent: Calf Tenderness - Neurological Exam Neurological Exam: Alert, Awake. absent: Oriented x3 - Psychiatric Exam Psychiatric exam: Normal Affect - Skin Skin Exam: Warm Assessment and Plan - Assessment and Plan (Free Text) Assessment: Patient is a 42 year old male with past medical history of T2DM, gastritis, polysubstance abuse admitted for management of alcoholic pancreatitis and was al so found to have intussusception on CT scan. Plan: - aggressive fluid resuscitation - dietary consult; patient at risk for re-feeding syndrome - followup repeat CT abd/pelvis with PO contrast to determine if intussusception resolved - no acute surgical intervention indicated at this time - further management per primary - further recommendations per Dr. Morgan Souza PGY-1
[2018-08-07] MEDS: Insulin Reg-MEDIUM-Coverage SC SCH ×4 (08:20→22:03)
[2018-08-07] MEDS ORDERED: Barium Sulfate Susp 2.1% w/v, 2.0% w/w 450 mL Bottle PO ONE (08:57)
[2018-08-07] MEDS ORDERED: Potassium Chloride 20 mEq ER Tab PO STA (09:26)
[2018-08-07] MEDS: Clotrimazole 1% Top Soln(10 ml) TOP SCH ×2 (10:30→17:39)
--- NOTE | 2018-08-07 10:30 | PN ---
DATE: 08/07/2018 SUBJECTIVE: I saw Mr. Goncalves this morning. He is a 42-year-old white male known to this [employer] consultant with past medical history of multi-substance abuse and pancreatitis. The patient was admitted with complaints of nausea, vomiting, and abdominal pain probably secondary to pancreatitis. Note that, he had a significant alcohol intake history just prior to admission. At the bedside this morning, the patient's speaks very little, responses in two to three words. He still has abdominal pain and also expressed the desire to advance diet. There is no hematemesis or rectal bleeding. PHYSICAL EXAMINATION: VITAL SIGNS: I reviewed the patient's vital signs. HEENT: Unable to be done due to patient's cooperation. LUNGS: Decreased breath sounds at the bases. HEART: Regular rate and rhythm. ABDOMEN: Tender epigastric, left upper quadrant, periumbilical. Lower quadrants noncontributory. LABORATORY DATA: Review of laboratory data indicate H and H 12 and 38 probably due to the dilution. Last chemistry was significant for a sodium 132 with K of 3.3. Normal renal function. Sugars ranging 180s to 350 roughly. I reviewed the notes of Dr. Cam as well as Dr. Egan and Dr. Mora. ASSESSMENT AND PLAN: This is a 42-year-old male with history of pancreatitis, multi-substance abuse, admitted for severe pancreatitis with symptoms of abdominal pain. Agreeable with the recommendations of the consultants, especially dietary input given the patient's limited input of solid food over the last month or so. Advance his diet up to full liquids today to check tolerance, Tolerating clear liquids okay. The patient will be followed up by Dr. Mora for issues related to possible intussusception as well as by Dr. Cam later on this morning. House staff will see the patient later on as well. Yung Fernandez DO, PhD MTD[place]ovis
--- NOTE | 2018-08-07 12:29 | CP.PCM.PN ---
<Darwin Cruz - Last Filed: 08/07/18 12:36> Subjective - Date & Time of Evaluation Date of Evaluation: 08/07/18 Time of Evaluation: 07:00 - Subjective Subjective: Darwin Cruz DO, PGY-1 Hospitalist Progress Note for Dr. Cam Patient was seen and examined at bedside this AM. He reports no new complaints and denies feeling overly anxious or having tremors. He states he would like to eat solid food. Objective - Vital Signs/Intake and Output Vital Signs (last 24 hours): Temp Pulse Resp BP Pulse Ox 98.2 F 96 H 18 111/79 100 08/07/18 06:00 08/07/18 06:00 08/07/18 06:00 08/07/18 06:00 08/07/18 06:00 Intake and Output: 08/07/18 08/07/18 06:59 18:59 Intake Total 2640 Output Total 2350 Balance 290 - Medications Medications: Current Medications Clotrimazole (Lotrimin Af 1%) 1 ml TOP BID REPLACED BY [facility] Last Admin: 08/07/18 10:30 Dose: 1 applic Heparin Sodium (Porcine) (Heparin) 5,000 units SC Q8 REPLACED BY [facility]; Protocol Last Admin: 08/07/18 05:42 Dose: 5,000 units Folic Acid 1 mg/ Thiamine HCl 100 mg/ Multivitamins/Vitamin C 10 ml/ Dextrose 1,011.2 mls @ 100 mls/hr IV .Q10H7M REPLACED BY [facility] Last Admin: 08/06/18 20:40 Dose: 100 mls/hr Insulin Human Regular (Humulin R Med) 0 units SC ACHS REPLACED BY [facility]; Protocol Last Admin: 08/07/18 11:29 Dose: 10 units Lorazepam (Ativan) 0.5 mg IVP Q3H PRN; Protocol PRN Reason: Agitation Lorazepam (Ativan) 0.5 mg IVP Q4H [facility]; Protocol Morphine Sulfate (Morphine) 2 mg IVP Q6H PRN PRN Reason: Pain, moderate (4-7) Nicotine (Nicoderm Cq) 1 patch TD DAILY REPLACED BY [facility] Last Admin: 08/07/18 10:30 Dose: 1 patch Ondansetron HCl (Zofran Inj) 4 mg IVP Q6H PRN PRN Reason: Nausea/Vomiting Last Admin: 01/30/19 21:26 Dose: 4 mg Pantoprazole Sodium (Protonix Inj) 40 mg IVP DAILY [facility] Last Admin: 08/07/18 10:27 Dose: 40 mg - Labs Labs: 08/07/18 07:15 08/07/18 07:15 - Constitutional Appears: Non-toxic, No Acute Distress - Head Exam Head Exam: ATRAUMATIC, NORMOCEPHALIC - Eye Exam Eye Exam: EOMI, Normal appearance, PERRL - ENT Exam ENT Exam: Mucous Membranes Moist - Neck Exam Neck Exam: Full ROM, Normal Inspection - Respiratory Exam Respiratory Exam: Clear to Ausculation Bilateral, NORMAL BREATHING PATTERN. absent: Accessory Muscle Use, Rales, Rhonchi, Wheezes, Respiratory Distress - Cardiovascular Exam Cardiovascular Exam: REGULAR RHYTHM, RRR, +S1, +S2. absent: Gallop, Rubs, Murmur - GI/Abdominal Exam GI & Abdominal Exam: Soft, Normal Bowel Sounds. absent: Tenderness - Extremities Exam Extremities Exam: Full ROM, Normal Inspection - Back Exam Back Exam: NORMAL INSPECTION - Neurological Exam Neurological Exam: Alert, Awake, Oriented x3 - Psychiatric Exam Psychiatric exam: Normal Affect, Normal Mood - Skin Skin Exam: Dry, Intact, Warm Assessment and Plan - Assessment and Plan (Free Text) Assessment: 42 yo M with PMH of polysubstance abuse (EtOH, cocaine, heroin, benzos), DM2 (last A1C 10.3), and gastritis presents with recurrent alcoholic pancreatitis. Plan: Pancreatitis 2/2 chronic EtOH abuse Liquid diet per GI recs IVF changed to D5W with vitamin supplementation at 150 cc/hr per surgery recs Continue protonix 40 mg IVP daily Continue morphine 2 mg q6h IVP for pain control but has not required any morphine Zofran 4 mg q6h IVP for nausea/vomiting Check Mg/Phos levels daily, replete as needed EtOH Abuse Continue CIWA protocol Latest CIWA score decreased to 6 Decrease scheduled ativan to 0.5 mg q4h scheduled at 0.5 mg q3h PRN for agitation/withdrawal sx's Upper GI Intussusception on CTAP Continue fluid resuscitation and clear liquid diet per surgery/GI recs At risk for re-feeding syndrome so will awaiting dietary recs Surgery to repeat CTAP with PO contrast to verify resolution of intussusception Follow up further surgery recs Hypokalemia Likely 2/2 poor PO intake vs GI losses Levels have remained at 3.3 this AM Continue to replete with PO KCl Recheck in AM Hyponatremia Resolved Continue to monitor Uncontrolled DM2 Continue ISS Tachycardia on admission Improved overnight Continue to monitor L foot wound/decreased LLE pulses Podiatry has evaluated patient for foot care, recs appreciated Ordered clotrimazole anti-fungal for treatment of tinea pedis, apply daily DVT/GI PPX: SC heparin/protonix Full Code Clear liquid diet, advance after CTAP Monitor on telemetry Patient seen, examined, and plan discussed with my attending Dr. Tutu Cruz, D.O. IM Resident PGY-1 Pager: [phone] <Denys Cam - Last Filed: 08/07/18 14:20> Objective - Vital Signs/Intake and Output Vital Signs (last 24 hours): Temp Pulse Resp BP Pulse Ox 98 F 101 H 21 115/74 100 08/07/18 12:00 08/07/18 12:00 08/07/18 12:00 08/07/18 12:00 08/07/18 06:00 Intake and Output: 08/07/18 08/07/18 06:59 18:59 Intake Total 2640 Output Total 2350 Balance 290 - Medications Medications: Current Medications Clotrimazole (Lotrimin Af 1%) 1 ml TOP BID [facility] Last Admin: 08/07/18 10:30 Dose: 1 applic Heparin Sodium (Porcine) (Heparin) 5,000 units SC Q8 [facility]; Protocol Last Admin: 08/07/18 05:42 Dose: 5,000 units Folic Acid 1 mg/ Thiamine HCl 100 mg/ Multivitamins/Vitamin C 10 ml/ Dextrose 1,011.2 mls @ 100 mls/hr IV .Q10H7M [facility] Last Admin: 08/07/18 12:40 Dose: 100 mls/hr Insulin Human Regular (Humulin R Med) 0 units SC ACHS [facility]; Protocol Last Admin: 08/07/18 11:29 Dose: 10 units Lorazepam (Ativan) 0.5 mg IVP Q3H PRN; Protocol PRN Reason: Agitation Lorazepam (Ativan) 0.5 mg IVP Q4H [facility]; Protocol Morphine Sulfate (Morphine) 2 mg IVP Q6H PRN PRN Reason: Pain, moderate (4-7) Nicotine (Nicoderm Cq) 1 patch TD DAILY [facility] Last Admin: 08/07/18 10:30 Dose: 1 patch Ondansetron HCl (Zofran Inj) 4 mg IVP Q6H PRN PRN Reason: Nausea/Vomiting Last Admin: 08/06/18 21:26 Dose: 4 mg Pantoprazole Sodium (Protonix Inj) 40 mg IVP DAILY [facility] Last Admin: 08/07/18 10:27 Dose: 40 mg - Labs Labs: 08/07/18 07:15 08/07/18 07:15 Attending/Attestation - Attestation I have personally seen and examined this patient.: Yes I have fully participated in the care of the patient.: Yes I have reviewed all pertinent clinical information, including history, physical exam and plan: Yes Notes (Text): 08/07/18 14:15 42 year old male with past medical history of alcohol/substance abuse and diabetes who presented with complaint of epigastric pain radiating to back and alcohol withdrawal. He was found to have alcoholic pancreatitis with elevated lipase and CT findings also showing intussusepcion. GI and surgery are following. Abdominal pain has improved and he is tolerating diet as it is being advanced Continue with serial abdominal exams; plan is to repeat CT abd/pelvis today for follow up. Patient was counselled on alcohol abstinence. Continue with banana bag. Continue with tapering ativan damien/prn for withdrawal symptoms. Hyponatremia has resolved. Will replete and repeat potassium. Xray of foot and LE doppler were negative. Denys Cam MD Hospitalist.
[2018-08-07] MEDS: Folic Acid 1 MG, Thiamine 100 MG, Multivitamin (MVI) 10 ML in Dextrose 5% In Water 1,00... IV SCH (12:40)
--- NOTE | 2018-08-07 16:38 | CT ---
Date of service: 08/07/2018 PROCEDURE: CT Abdomen and Pelvis without intravenous contrast HISTORY: ?intussusception COMPARISON: 08/05/2018 TECHNIQUE: Without contrast.. Contrast dose: 0 Radiation dose: Total exam DLP = 311.93 mGy-cm. This CT exam was performed using one or more of the following dose reduction techniques: Automated exposure control, adjustment of the mA and/or kV according to patient size, and/or use of iterative reconstruction technique. FINDINGS: LOWER THORAX: Unremarkable. LIVER: Diffusely diminished attenuation consistent with fatty infiltration. Smooth contour. No mass. Mild focal fatty sparing adjacent to the gallbladder fossa. GALLBLADDER AND BILE DUCTS: Contracted. No calcified gallstones. PANCREAS: Unremarkable. No gross lesion or ductal dilatation. SPLEEN: Unremarkable. ADRENALS: Unremarkable. No mass. KIDNEYS AND URETERS: Unremarkable. No hydronephrosis. No solid mass. VASCULATURE: Unremarkable. No aortic aneurysm. There is atherosclerotic calcification of the abdominal aorta. BOWEL: No evidence of intussusception. Sigmoid diverticulosis. No bowel obstruction. There is mural thickening of the 2nd and 3rd duodenum consistent nonspecific duodenitis. APPENDIX: Unremarkable. Normal appendix. PERITONEUM: Unremarkable. No free fluid. No free air. LYMPH NODES: Unremarkable. No enlarged lymph nodes. BLADDER: Poorly distended. REPRODUCTIVE: Unremarkable prostate BONES: Moderate compression fracture of T7 vertebra, age indeterminate. This was not present on prior chest CT examination of 01/14/2015 mild compression deformity of T9 vertebra, again age indeterminate. This was seen on prior abdominal CT of 08/05/2018. OTHER FINDINGS: None. IMPRESSION: No evidence of intussusception. Nonspecific duodenitis. Sigmoid diverticulosis without evidence of diverticulitis. Fatty liver. Compression fractures of T7 and T9 vertebrae age indeterminate.
[2018-08-08] MEDS: Folic Acid 1 MG, Thiamine 100 MG, Multivitamin (MVI) 10 ML in Dextrose 5% In Water 1,00... IV SCH (04:00)
--- NOTE | 2018-08-08 05:19 | CP.PCM.PN ---
Subjective - Date & Time of Evaluation Date of Evaluation: 08/08/18 Time of Evaluation: 05:16 - Subjective Subjective: Surgery Progress note- Dr. Mora Patient seen and examined at bedside. remains difficult to awake in the AM, however once when he wakes up is Alert. is AAOx1 to person only, easily re- orients back to place and time. abdominal pain improved since admission. Patient continues to state he is hungry, however has not eaten in weeks. denies, nausea, vomiting, fevers, chills. + OOB and flatus. Denies BM. 0.5mg of Ativan given overnight Objective - Vital Signs/Intake and Output Vital Signs (last 24 hours): Temp Pulse Resp BP Pulse Ox 97.6 F 119 H 22 122/90 97 08/07/18 23:47 08/08/18 02:00 08/07/18 23:47 08/07/18 23:47 08/07/18 23:47 Intake and Output: 08/07/18 08/08/18 18:59 06:59 Intake Total 1920 Output Total 1400 Balance 520 - Medications Medications: Current Medications Clotrimazole (Lotrimin Af 1%) 1 ml TOP BID [facility] Last Admin: 08/07/18 17:39 Dose: 1 applic Heparin Sodium (Porcine) (Heparin) 5,000 units SC Q8 [facility]; Protocol Last Admin: 08/07/18 22:02 Dose: 5,000 units Folic Acid 1 mg/ Thiamine HCl 100 mg/ Multivitamins/Vitamin C 10 ml/ Dextrose 1,011.2 mls @ 100 mls/hr IV .Q10H7M [facility] Last Admin: 08/07/18 12:40 Dose: 100 mls/hr Insulin Human Regular (Humulin R Med) 0 units SC ACHS [facility]; Protocol Last Admin: 08/07/18 22:03 Dose: 4 units Lorazepam (Ativan) 0.5 mg IVP Q3H PRN; Protocol PRN Reason: Agitation Lorazepam (Ativan) 0.5 mg IVP Q4H [facility]; Protocol Last Admin: 08/07/18 23:47 Dose: Not Given Morphine Sulfate (Morphine) 2 mg IVP Q6H PRN PRN Reason: Pain, moderate (4-7) Nicotine (Nicoderm Cq) 1 patch TD DAILY [facility] Last Admin: 08/07/18 10:30 Dose: 1 patch Ondansetron HCl (Zofran Inj) 4 mg IVP Q6H PRN PRN Reason: Nausea/Vomiting Last Admin: 08/07/18 23:25 Dose: 4 mg Pantoprazole Sodium (Protonix Inj) 40 mg IVP DAILY [facility] Last Admin: 08/07/18 10:27 Dose: 40 mg - Labs Labs: 08/07/18 07:15 08/07/18 07:15 - Constitutional Appears: No Acute Distress, Unkempt, Older Than Stated Age - Head Exam Head Exam: ATRAUMATIC - Eye Exam Eye Exam: EOMI. absent: Scleral icterus - ENT Exam ENT Exam: Mucous Membranes Moist - Respiratory Exam Respiratory Exam: NORMAL BREATHING PATTERN. absent: Accessory Muscle Use, Respiratory Distress - GI/Abdominal Exam GI & Abdominal Exam: Soft. absent: Distended, Firm, Guarding, Rigid, Tenderness - Back Exam Back Exam: absent: CVA tenderness (L), CVA tenderness (R) - Neurological Exam Neurological Exam: Alert, Awake - Skin Skin Exam: Dry, Intact, Warm Assessment and Plan - Assessment and Plan (Free Text) Assessment: 42M w/ ETOH abuse, surgery was consulted for intusussception Repeat CT on 08/07: no signs of intussusception Plan: - recommend dietary consult; patient at risk for re-feeding syndrome - monitor lytes; replete PRN - no acute surgical intervention indicated at this time - further management per primary - further recommendations per Dr. Morgan Ramirez PGY2
[2018-08-08 06:19] VITALS: O2SAT 98
[2018-08-08 07:13] LABS: BASO # 0.05 K/mm3 (0.0-2.0); BASO % 1.2 % (0.0-3.0); EOS # 0.1 (0.0-0.7); EOS % 2.3 % (1.5-5.0); HEMOGLOBIN 12.2 g/dL (14.0-18.0); LYMPH # 1.6 (1.2-3.4); LYMPH % 38.2 % (22.0-35.0); MEAN CELL VOLUME 83.9 fl (80.0-105.0); MEAN CORPUSCULAR HEMOGLOBIN 27.6 pg (25.0-35.0); MEAN CORPUSCULAR HGB CONC 32.9 g/dl (31.0-37.0); MEAN PLATELET VOLUME 9.9 fl (7.0-11.0); MONO # 0.7 (0.1-0.6); MONO % 15.7 % (1.0-6.0); RBC 4.42 10^6/uL (3.5-6.1); RED CELL DISTRIBUTION WIDTH 14.9 % (11.5-14.5); WHITE BLOOD COUNT 4.3 10^3/uL (4.5-11.0)
--- NOTE | 2018-08-08 08:26 | PN ---
DATE: 08/08/2018 SUBJECTIVE: I saw Mr. Goncalves this morning. He is a 42-year-old white male, known to this [employer] consultant with past medical history of multi-substance abuse and pancreatitis, admitted for exacerbation of the latter with abdominal pain, nausea, and vomiting. The patient is making some progress on current regimen and was still exhibiting some degree of abdominal pain. He requests an advance of diet. Apparently, he has been handling liquid diet with no problem. PHYSICAL EXAMINATION: VITAL SIGNS: I reviewed the patient's vital signs. HEENT: Noncontributory. LUNGS: Clear to auscultation. HEART: Regular rhythm. ABDOMEN: Tender periumbilical, left upper quadrant, epigastric area. LABORATORY DATA: Reviewed laboratory data from yesterday. Sugars have been variable. ASSESSMENT AND PLAN: This is a 42-year-old white male, known to [employer] consultant with past medical history of pancreatitis, multi-substance abuse, and here for flare of pancreatitis. Regimen the patient is on is adequate. Try to advance diet that includes very small portions that is soft. Note that he needs close monitoring of glucose as well as electrolyte, magnesium levels, calcium, etc. The patient will be followed up by house staff later on this morning. I reviewed Dr. Mora's note regarding the intussusception issue. The repeat CT indicates no evidence of intussusception. Therefore, no surgical procedure. Yung Fernandez DO, PhD [place]
[2018-08-08] MEDS: Insulin Reg-MEDIUM-Coverage SC SCH ×2 (08:35→12:02)
[2018-08-08 09:21] LABS: ALBUMIN 3.2 g/dL (3.0-4.8); ALT/SGPT 44 U/L (7-56); AST/SGOT 59 U/L (17-59); BLOOD UREA NITROGEN 5 mg/dL (7-21); CALCIUM 8.7 mg/dL (8.4-10.5); GFR NON-AFRICAN AMERICAN > 60
[2018-08-08] MEDS: Clotrimazole 1% Top Soln(10 ml) TOP SCH (09:22)
[2018-08-08 12:10] VITALS: BP 119/91; PULSE 105; RESP 21; TEMP 98.5
--- NOTE | 2018-08-08 17:52 | CP.PCM.DIS ---
<Darwin Cruz - Last Filed: 08/08/18 21:25> Provider - Provider Date of Admission: 08/05/18 13:25 Attending physician: Denys Cam MD Primary care physician: Joshua Leslie MD Consults: 08/05/18 14:55 Physician Consult Routine Comment: Consulting Provider: Yung Fernandez Consulting Physician: Yung Fernandez Reason for Consult: hx hematemesis, prior EGD, 08/05/18 15:17 Podiatry Consult Routine Comment: Consulting Provider: Mindy Jackson Consulting Physician: Mindy Jackson Reason for Consult: poor diabetic foot care 08/05/18 17:59 Consult [Physician Consult] Routine Comment: Consulting Provider: Shad Mora Consulting Physician: Shad Mora Reason for Consult: interssusception 08/05/18 18:05 Physician Consult Routine Comment: Consulting Provider: Shad Mora Consulting Physician: Shad Mora Reason for Consult: intussusception 08/06/18 00:24 Social Work Referral Routine Comment: Sherron score 11 Physician Instructions: Reason For Exam: Protocol 08/06/18 00:58 Diabetic Education Referral Routine Comment: Physician Instructions: Reason For Exam: Protocol Time Spent in preparation of Discharge (in minutes): 40 Diagnosis - Discharge Diagnosis (1) Alcohol abuse Status: Acute (2) Alcohol withdrawal Status: Acute (3) Alcoholic pancreatitis Status: Acute (4) Intussusception of jejunum Status: Resolved Hospital Course - Lab Results Lab Results: Most Recent Lab Values WBC 4.3 10^3/uL (4.5-11.0) L 08/08/18 07:00 RBC 4.42 10^6/uL (3.5-6.1) 08/08/18 07:00 Hgb 12.2 g/dL (14.0-18.0) L 08/08/18 07:00 Hct 37.1 % (42.0-52.0) L 08/08/18 07:00 MCV 83.9 fl (80.0-105.0) 08/08/18 07:00 MCH 27.6 pg (25.0-35.0) 08/08/18 07:00 MCHC 32.9 g/dl (31.0-37.0) 08/08/18 07:00 RDW 14.9 % (11.5-14.5) H 08/08/18 07:00 Plt Count 273 10^3/uL (120.0-450.0) 08/08/18 07:00 MPV 9.9 fl (7.0-11.0) 08/08/18 07:00 Neut % (Auto) 42.6 % (50.0-68.0) L 08/08/18 07:00 Lymph % (Auto) 38.2 % (22.0-35.0) H 08/08/18 07:00 [place] % (Auto) 15.7 % (1.0-6.0) H 08/08/18 07:00 Eos % (Auto) 2.3 % (1.5-5.0) 08/08/18 07:00 Baso % (Auto) 1.2 % (0.0-3.0) 08/08/18 07:00 Lymph # (Auto) 1.6 (1.2-3.4) 08/08/18 07:00 [place] # (Auto) 0.7 (0.1-0.6) H 08/08/18 07:00 Eos # (Auto) 0.1 (0.0-0.7) 08/08/18 07:00 Baso # (Auto) 0.05 K/mm3 (0.0-2.0) 08/08/18 07:00 Absolute Neuts (auto) 1.82 (1.4-6.5) 08/08/18 07:00 pO2 190 mm/Hg (30-55) H 08/05/18 16:19 VBG pH 7.51 (7.32-7.43) H 08/05/18 16:19 VBG pCO2 39.0 (40-60) L 08/05/18 16:19 VBG HCO3 31.1 mmol/l (21-28) H 08/05/18 16:19 VBG Total CO2 32.3 mmol.L (22-28) H 08/05/18 16:19 VBG O2 Sat (Calc) 100.1 % (40-65) H 08/05/18 16:19 VBG Base Excess 7.5 mmol/L (0.0-2.0) H 08/05/18 16:19 VBG Potassium 3.3 mmol/L (3.6-5.2) L 08/05/18 16:19 Sodium 126.0 mmol/L (132-148) L 08/05/18 16:19 Chloride 84.0 mmol/L (98-107) L 08/05/18 16:19 Glucose 239 mg/dl (75-110) H 08/05/18 16:19 Lactate 2.2 mmol/L (0.7-2.1) H 08/05/18 16:19 FiO2 21.0 % 08/05/18 16:19 Crit Value Called To Maddy 08/05/18 12:30 Crit Value Called By 08/05/18 12:30 Blood Gas Notified Time 1255 08/05/18 12:30 Sodium 130 mmol/L (132-148) L 08/08/18 06:55 Potassium 3.8 mmol/L (3.6-5.0) 08/08/18 06:55 Chloride 98 mmol/L (98-107) 08/08/18 06:55 Carbon Dioxide 26 mmol/L (21-33) 08/08/18 06:55 Anion Gap 10 (10-20) 08/08/18 06:55 BUN 5 mg/dL (7-21) L 08/08/18 06:55 Creatinine 0.5 mg/dl (0.8-1.5) L 08/08/18 06:55 Est GFR ( Amer) > 60 08/08/18 06:55 Est GFR (Non-Af Amer) > 60 08/08/18 06:55 POC Glucose (mg/dL) 373 mg/dL (65-110) H 08/08/18 11:04 Random Glucose 240 mg/dL (70-110) H 08/08/18 06:55 Hemoglobin A1c 7.6 % (4.2-6.5) H D 08/05/18 12:30 Serum Osmolality 278 mosm/kg (272-300) 08/05/18 03:00 Calcium 8.7 mg/dL (8.4-10.5) 08/08/18 06:55 Phosphorus 3.2 mg/dL (2.5-4.5) 08/08/18 06:55 Magnesium 1.7 mg/dL (1.7-2.2) 08/08/18 06:55 Total Bilirubin 0.4 mg/dL (0.2-1.3) 08/08/18 06:55 AST 59 U/L (17-59) D 08/08/18 06:55 ALT 44 U/L (7-56) 08/08/18 06:55 Alkaline Phosphatase 102 U/L (38-126) 08/08/18 06:55 Total Protein 6.4 g/dL (5.8-8.3) 08/08/18 06:55 Albumin 3.2 g/dL (3.0-4.8) 08/08/18 06:55 Globulin 3.2 gm/dL 08/08/18 06:55 Albumin/Globulin Ratio 1.0 (1.1-1.8) L 08/08/18 06:55 Triglycerides 93 mg/dL (35-160) 08/06/18 07:00 Cholesterol 100 mg/dL (130-200) L 08/06/18 07:00 LDL Cholesterol Direct 44 mg/dL (0-129) 08/06/18 07:00 HDL Cholesterol 41 mg/dL (29-60) 08/06/18 07:00 Lipase 1162 U/L (23-300) H 08/05/18 12:30 Venous Blood Potassium 3.3 mmol/L (3.6-5.2) L 08/05/18 16:19 Ur Random Sodium 14 meq/L 08/05/18 17:48 Alcohol, Quantitative < 10 mg/dL (0-10) 08/05/18 12:30 - Hospital Course Hospital Course: Darwin Cruz DO, PGY-1 Hospitalist Discharge Summary for Dr. Cam Mr. Goncalves is a 42 year old male with PMH of polysubstance abuse (EtOH, cocaine, heroin, benzos), DM2 (last A1C 10.3), and gastritis initially presented to ED with worsening epigastric abdominal pain that had been bothering him for 3 days prior to his presentation. He admitted to drinking at least 3 pints of vodka daily before his presentation. In ED, he was subsequently found to have lipase of 1160. CTAP was performed which showed no obvious signs of pancreatitis, however, he was found to have small bowel intussusception on CTAP. Surgery was subsequently consulted for recs. He was subsequently admitted for treatment of acute alcoholic pancreatitis and finding of intussusception on CTAP. He was subsequently made NPO and NS with vitamin supplementation was started at 150 cc/hr. He was given morphine for pain control. CIWA protocol was initiated and patient required 2 mg ativan at first. GI was also consulted as patient had stated he had a history of recent hematemesis, had a recent EGD done at [facility], and also complained of significant weight loss. Surgery evaluated the patient and recommended bowel rest with repeat CT in a few days. Dr. Fernandez, GI, evaluated patient and no previous records of EGD or other procedure could be found. His abdominal pain began to improve and his CIWA scores decreased. Ativan was eventually tapered to 0.5 mg scheduled with 0.5 mg q2h PRN. CTAP with PO contrast was repeated and found no evidence of intussusception. Surgery had no additional recs. Follow up plan was discussed with Dr. Fernandez who stated patient would not need outpatient follow up for EGD or colonoscopy. Suspect patient's weight loss is most likely 2/2 chronic malnutrition and EtOH abuse. Prior to discharge, patient's abdominal pain improved significantly and stated he had no withdrawal symptoms. Patient stated that he would be going to a half-way in [place] after discharge. Discharge plan was discussed with patient and consultants. All questions were answered. Patient seen, examined, and discharge plan discussed with my attending Dr. Cam Patient seen, examined, and plan discussed with my attending Dr. Tutu Cruz D.O. IM Resident PGY-1 Discharge Exam - Head Exam Head Exam: ATRAUMATIC, NORMOCEPHALIC - Eye Exam Eye Exam: EOMI, Normal appearance, PERRL - ENT Exam ENT Exam: Mucous Membranes Moist - Neck Exam Neck exam: Full Rom, Normal Inspection - Respiratory Exam Respiratory Exam: Clear to PA & Lateral, NORMAL BREATHING PATTERN. absent: Ac cessory Muscle Use, Rales, Rhonchi, Wheezes, Respiratory Distress - Cardiovascular Exam Cardiovascular Exam: REGULAR RHYTHM, RRR, +S1, +S2. absent: Diastolic murmur, Gallop, Rubs, Systolic Murmur - GI/Abdominal Exam GI & Abdominal Exam: Normal Bowel Sounds, Soft. absent: Tenderness - Extremities Exam Extremities exam: normal inspection - Neurological Exam Neurological exam: Alert, Oriented x3 - Psychiatric Exam Psychiatric exam: Normal Affect, Normal Mood - Skin Skin Exam: Dry, Intact, Warm Discharge Plan - Discharge Medications Prescriptions: busPIRone [Buspar] 10 mg PO BID #60 tab Gabapentin [Neurontin] 400 mg PO TID #90 cap Glimepiride [amaRYL] 4 mg PO BID #60 tab Insulin Glargine, Recombina [Lantus] 20 unit SC HS #1 vial metFORMIN [glucOPHAGE] 1,000 mg PO BID #60 tab Omeprazole 40 mg PO DAILY #30 capsule. QUEtiapine [SEROquel] 200 mg PO HS #30 tab traZODone [Desyrel] 100 mg PO HS PRN #30 tab PRN Reason: Insomnia - Follow Up Plan Condition: GUARDED Disposition: HOME/ ROUTINE Instructions: Alcohol Use - When Is Drinking a Problem?, Smoking: Not Just Harmful to Your Lungs and Heart, Quitting Smoking, Alcohol Withdrawal, Alcohol Abuse and Alcoholism (DC), Pancreatitis (DC), Hypokalemia (DC), Hypokalemia (GEN) Additional Instructions: Please follow up with your primary doctor within 1 week of discharge. Please follow up with Dr. Fernandez, the stomach doctor, within 2 weeks of discharge. It is important that you follow up with the stomach doctor to get testing done because you have been losing weight. Please continue to take your home medications as prescribed. Stop taking Januvia as this medication may have contributed to the inflammation around your pancreas which you have been treated for this admission. If any of your symptoms return or worsen, please go to the nearest ED. Referrals: Joshua Leslie MD [Primary Care Provider] - <Denys Cam - Last Filed: 08/09/18 08:16> Provider - Provider Date of Admission: 08/05/18 13:25 Attending physician: Denys Cam MD Primary care physician: Joshua Leslie MD Consults: 08/05/18 14:55 Physician Consult Routine Comment: Consulting Provider: Yung Fernandez Consulting Physician: Yung Fernandez Reason for Consult: hx hematemesis, prior EGD, 08/05/18 15:17 Podiatry Consult Routine Comment: Consulting Provider: Mindy Jackson Consulting Physician: Mindy Jackson Reason for Consult: poor diabetic foot care 08/05/18 17:59 Consult [Physician Consult] Routine Comment: Consulting Provider: Shad Mora Consulting Physician: Shad Mora Reason for Consult: interssusception 08/05/18 18:05 Physician Consult Routine Comment: Consulting Provider: Shad Mora Consulting Physician: Shad Mora Reason for Consult: intussusception 08/06/18 00:24 Social Work Referral Routine Comment: Sherron score 11 Physician Instructions: Reason For Exam: Protocol 08/06/18 00:58 Diabetic Education Referral Routine Comment: Physician Instructions: Reason For Exam: Protocol Hospital Course - Lab Results Lab Results: Most Recent Lab Values WBC 4.3 10^3/uL (4.5-11.0) L 08/08/18 07:00 RBC 4.42 10^6/uL (3.5-6.1) 08/08/18 07:00 Hgb 12.2 g/dL (14.0-18.0) L 08/08/18 07:00 Hct 37.1 % (42.0-52.0) L 08/08/18 07:00 MCV 83.9 fl (80.0-105.0) 08/08/18 07:00 MCH 27.6 pg (25.0-35.0) 08/08/18 07:00 MCHC 32.9 g/dl (31.0-37.0) 08/08/18 07:00 RDW 14.9 % (11.5-14.5) H 08/08/18 07:00 Plt Count 273 10^3/uL (120.0-450.0) 08/08/18 07:00 MPV 9.9 fl (7.0-11.0) 08/08/18 07:00 Neut % (Auto) 42.6 % (50.0-68.0) L 08/08/18 07:00 Lymph % (Auto) 38.2 % (22.0-35.0) H 08/08/18 07:00 [place] % (Auto) 15.7 % (1.0-6.0) H 08/08/18 07:00 Eos % (Auto) 2.3 % (1.5-5.0) 08/08/18 07:00 Baso % (Auto) 1.2 % (0.0-3.0) 08/08/18 07:00 Lymph # (Auto) 1.6 (1.2-3.4) 08/08/18 07:00 [place] # (Auto) 0.7 (0.1-0.6) H 08/08/18 07:00 Eos # (Auto) 0.1 (0.0-0.7) 08/08/18 07:00 Baso # (Auto) 0.05 K/mm3 (0.0-2.0) 08/08/18 07:00 Absolute Neuts (auto) 1.82 (1.4-6.5) 08/08/18 07:00 pO2 190 mm/Hg (30-55) H 08/05/18 16:19 VBG pH 7.51 (7.32-7.43) H 08/05/18 16:19 VBG pCO2 39.0 (40-60) L 08/05/18 16:19 VBG HCO3 31.1 mmol/l (21-28) H 08/05/18 16:19 VBG Total CO2 32.3 mmol.L (22-28) H 08/05/18 16:19 VBG O2 Sat (Calc) 100.1 % (40-65) H 08/05/18 16:19 VBG Base Excess 7.5 mmol/L (0.0-2.0) H 08/05/18 16:19 VBG Potassium 3.3 mmol/L (3.6-5.2) L 08/05/18 16:19 Sodium 126.0 mmol/L (132-148) L 08/05/18 16:19 Chloride 84.0 mmol/L (98-107) L 08/05/18 16:19 Glucose 239 mg/dl (75-110) H 08/05/18 16:19 Lactate 2.2 mmol/L (0.7-2.1) H 08/05/18 16:19 FiO2 21.0 % 08/05/18 16:19 Crit Value Called To Maddy 08/05/18 12:30 Crit Value Called By 08/05/18 12:30 Blood Gas Notified Time 1255 08/05/18 12:30 Sodium 130 mmol/L (132-148) L 08/08/18 06:55 Potassium 3.8 mmol/L (3.6-5.0) 08/08/18 06:55 Chloride 98 mmol/L (98-107) 08/08/18 06:55 Carbon Dioxide 26 mmol/L (21-33) 08/08/18 06:55 Anion Gap 10 (10-20) 08/08/18 06:55 BUN 5 mg/dL (7-21) L 08/08/18 06:55 Creatinine 0.5 mg/dl (0.8-1.5) L 08/08/18 06:55 Est GFR ( Amer) > 60 08/08/18 06:55 Est GFR (Non-Af Amer) > 60 08/08/18 06:55 POC Glucose (mg/dL) 373 mg/dL (65-110) H 08/08/18 11:04 Random Glucose 240 mg/dL (70-110) H 08/08/18 06:55 Hemoglobin A1c 7.6 % (4.2-6.5) H D 08/05/18 12:30 Serum Osmolality 278 mosm/kg (272-300) 08/05/18 03:00 Calcium 8.7 mg/dL (8.4-10.5) 08/08/18 06:55 Phosphorus 3.2 mg/dL (2.5-4.5) 08/08/18 06:55 Magnesium 1.7 mg/dL (1.7-2.2) 08/08/18 06:55 Total Bilirubin 0.4 mg/dL (0.2-1.3) 08/08/18 06:55 AST 59 U/L (17-59) D 08/08/18 06:55 ALT 44 U/L (7-56) 08/08/18 06:55 Alkaline Phosphatase 102 U/L (38-126) 08/08/18 06:55 Total Protein 6.4 g/dL (5.8-8.3) 08/08/18 06:55 Albumin 3.2 g/dL (3.0-4.8) 08/08/18 06:55 Globulin 3.2 gm/dL 08/08/18 06:55 Albumin/Globulin Ratio 1.0 (1.1-1.8) L 08/08/18 06:55 Triglycerides 93 mg/dL (35-160) 08/06/18 07:00 Cholesterol 100 mg/dL (130-200) L 08/06/18 07:00 LDL Cholesterol Direct 44 mg/dL (0-129) 08/06/18 07:00 HDL Cholesterol 41 mg/dL (29-60) 08/06/18 07:00 Lipase 1162 U/L (23-300) H 08/05/18 12:30 Venous Blood Potassium 3.3 mmol/L (3.6-5.2) L 08/05/18 16:19 Ur Random Sodium 14 meq/L 08/05/18 17:48 Alcohol, Quantitative < 10 mg/dL (0-10) 08/05/18 12:30 Attending/Attestation - Attestation I have personally seen and examined this patient.: Yes I have fully participated in the care of the patient.: Yes I have reviewed all pertinent clinical information, including history, physical exam and plan: Yes Notes (Text): 08/08/18 42 year old male with past medical history of alcohol/substance abuse and diabetes who presented with complaint of epigastric pain radiating to back and alcohol withdrawal. He was found to have alcoholic pancreatitis with elevated lipase and CT findings also showing intussusepcion. He was seen by GI and surgery. Abdominal pain improved and his diet was advanced which he tolerated. Repeat CT scan was negative for intussesepcion. Patient is discharged home to follow up with pmd and GI. Counselled on alcohol abstinence. Denys Cam MD Hospitalist.
== END 2018-08-08 15:02 | disposition home or self-care (01) | DRG 204 ==
LOC: ED 11:18 → ERH 13:25 → 2RNO 19:12
PROVIDERS: ADMIT Hospitalist; ATTEND Internal Medicine
DX: K85.20 Alcohol induced acute pancreatitis without necrosis or infection (principal); K56.1 Intussusception; E46 Unspecified protein-calorie malnutrition; E87.6 Hypokalemia; F10.239 Alcohol dependence with withdrawal, unspecified; E87.1 Hypo-osmolality and hyponatremia; E11.65 Type 2 diabetes mellitus with hyperglycemia; F17.210 Nicotine dependence, cigarettes, uncomplicated; Z79.4 Long term (current) use of insulin; Z80.9 Family history of malignant neoplasm, unspecified; F19.11 Other psychoactive substance abuse, in remission; R00.0 Tachycardia, unspecified

== ENCOUNTER 2018-10-01 20:19 | Emergency (ER) | payer OTHER | END 2018-10-02 06:35 | disposition home or self-care (01) | LOC: ED 10-02 06:35 ==

== ENCOUNTER 2018-10-02 06:53 | Emergency (ER) | payer OTHER ==
[2018-10-02 07:32] VITALS: BMI 19.2
[2018-10-02 07:33] VITALS: RESP 18; TEMP 98.9
--- NOTE | 2018-10-02 08:12 | ED PDOC ---
Arrival/HPI - General Chief Complaint: Back Pain Time Seen by Provider: 10/02/18 07:40 Historian: Patient - History of Present Illness Narrative History of Present Illness (Text): 10/02/18 08:16 43 year old male, whose past medical history includes polysubstance abuse, alcohol abuse, diabetes, and gastritis, presents to the ED for abdominal pain since today. Patient notes having PEG tube placed 2 weeks ago. Patient was seen earlier in the ED for alcohol intoxication and discharged home after sobriety and negative exam. However, reportedly, patient stated he has no where to go prompting him to return to the ED. Patient denies any chest pain, shortness of breath, headache, fever, chills, cough, nausea, vomiting, diarrhea, dizziness or lightheadedness or any other complaints. Time/Duration: 4-6 hours Symptom Onset: Gradual Symptom Course: Unchanged Activities at Onset: Light Context: Home Past Medical History - Provider Review Nursing Documentation Reviewed: Yes - Past History Past History: No Previous - Infectious Disease Hx of Infectious Diseases: None - Tetanus Immunization Tetanus Immunization: Unknown - Past Medical History Past Medical History: No Previous - Cardiac Hx Cardiac Disorders: No Hx Hypertension: No - Pulmonary Hx Respiratory Disorders: No Hx Tuberculosis: No Other/Comment: Currently smokes 2 ppd - Neurological Hx Seizures: No - HEENT Hx HEENT Disorder: No - Renal Hx Renal Disorder: No - Endocrine/Metabolic Hx Endocrine Disorders: Yes Hx Diabetes Mellitus Type 2: Yes - Hematological/Oncological Hx Cancer: No - Integumentary Hx Dermatological Disorder: No - Musculoskeletal/Rheumatological Hx Musculoskeletal Disorders: Yes Hx Back Pain: Yes Hx Falls: Yes (from hypoglycemia, feeling lightheaded) - Gastrointestinal Hx Gastrointestinal Disorders: Yes Hx Gastritis: Yes Hx Pancreatitis: Yes - Genitourinary/Gynecological Hx Genitourinary Disorders: No Hx Sexually Transmitted Diseases: No - Psychiatric Hx Psychophysiologic Disorder: Yes Hx Anxiety: Yes Hx Depression: No Hx Substance Use: Yes - Past Surgical History Past Surgical History: No Previous - Anesthesia Hx Anesthesia: Yes Hx Anesthesia Reactions: No - Suicidal Assessment Feels Threatened In Home Enviroment: No Family/Social History - Physician Review Nursing Documentation Reviewed: Yes Family/Social History: Unknown Family HX Smoking Status: Former Smoker Hx Alcohol Use: Yes Hx Substance Use: Yes Substance used: percocet Hx Substance Use Treatment: No Allergies/Home Meds Allergies/Adverse Reactions: Allergies No Known Allergies Allergy (Verified 09/21/18 10:47) Home Medications: Home Meds Medication Instructions Recorded Confirmed Insulin Aspart, Recombinant 0 unit 09/21/18 [Novolog] LORazepam [Ativan] 1 mg PO Q8 PRN 09/21/18 09/21/18 Maalox 30 ml 30 ml PO Q6 PRN 09/21/18 09/21/18 Nicotine 14 mg/24 hr [Nicoderm CQ] 1 patch TD DAILY 09/21/18 09/21/18 Nut.tx.gluc.intoler,Lac-Fr,Soy 237 ml PO DAILY 09/21/18 09/21/18 [Glucerna Therapeutic Nutrition] Ondansetron [Ondansetron Odt] 4 mg PO Q6 PRN 09/21/18 09/21/18 Pantoprazole Sodium [Protonix] 1 tab DAILY 09/21/18 09/21/18 SITagliptin [Januvia] 25 mg PO DAILY 09/21/18 09/21/18 oxyCODONE/Acetaminophen [Percocet 1 tab PO Q6 PRN 09/21/18 09/21/18 5/325 mg Tab] Review of Systems - Physician Review All systems were reviewed & negative as marked: Yes - Review of Systems Constitutional: absent: Fevers Eyes: absent: Vision Changes Respiratory: absent: SOB, Cough Cardiovascular: absent: Chest Pain Gastrointestinal: Abdominal Pain. absent: Diarrhea, Nausea, Vomiting Skin: absent: Rash Neurological: absent: Headache, Dizziness Physical Exam - Physical Exam Narrative Physical Exam (Text): 10/02/18 08:34 Gen: VS reviewed, alert, well developed, well nourished, nontoxic, mild distress ENT: normal pharynx Eye: EOMI, PERRL Neck: no JVD, supple, no adenopathy CV: regular rate, regular rhythm, no rubs, no murmur, no gallops, S1, S2, pulses, equal and strong Pulm: no distress, clear to auscultation, no wheeze, no rhonchi, breath sounds equal, no rales Abd: PEG tube in place, skin site clean, dry, intact. soft, questionable epigastric tenderness, no guarding, no rebound, no rigidity, normal bowel sounds Ext: no edema Skin: good color, no rash, no cyanosis Psych: responds appropriately to questions, normal affect Neuro: oriented x 3, CN2-12 intact grossly, motor intact, sensation intact Vital Signs Reviewed: Yes Vital Signs Temp Pulse Resp BP Pulse Ox 10/02/18 07:32 98.9 F 84 18 110/65 98 Temperature: Afebrile Blood Pressure: Normal Pulse: Regular Respiratory Rate: Normal Appearance: Positive for: Well-Appearing, Non-Toxic, Comfortable Pain Distress: Mild Mental Status: Positive for: Alert and Oriented X 3 Medical Decision Making ED Course and Treatment: 10/02/18 08:37 Impression: 43 year old male who presents to the ED for abdominal pain. Plan: -- CT scan Abdomen/Pelvis -- EKG -- Labs -- Zofran -- IV Fluids -- Reassess and disposition Progress Notes: 10/02/18 09:57 patient not willing to stay for health and social care teacher for assisted options. patient does not exhibit any s/s of withdrawal. patient took out his own iv, discharge. - RAD Interpretation Narrative RAD Interpretations (Text): 10/02/18 09:50 Abdomen/Pelvis CT reviewed by radiologist, shows: FINDINGS: LOWER THORAX: Unremarkable. LIVER: Unremarkable. No gross lesion or ductal dilatation. GALLBLADDER AND BILE DUCTS: Unremarkable. PANCREAS: Unremarkable. No gross lesion or ductal dilatation. SPLEEN: Unremarkable. ADRENALS: Unremarkable. No mass. KIDNEYS AND URETERS: Unremarkable. No hydronephrosis. No solid mass. VASCULATURE: Unremarkable. No aortic aneurysm. There is atherosclerotic calcification of the abdominal aorta. BOWEL: No bowel obstruction. Percutaneous gastrostomy tube noted. No abnormal bowel loops. APPENDIX: Unremarkable. Normal appendix. PERITONEUM: Unremarkable. No free fluid. No free air. LYMPH NODES: Unremarkable. No enlarged lymph nodes. BLADDER: Unremarkable. REPRODUCTIVE: Unremarkable prostate BONES: No acute fracture. OTHER FINDINGS: None. IMPRESSION: Percutaneous gastrostomy tube noted. Otherwise unremarkable examination. Radiology Orders: 10/02/18 07:45 ABDOMEN & PELVIS [ABD & PELVIS W/O PO OR IV CONT] [CT] Stat Grocery Worker: Radiologist - EKG Interpretation EKG Interpretation (Text): 10/02/18 08:17 NSR @ 81 bpm, nml qrs, nml axis, no acute sttw abn. Interpreted by ED Physician: Yes Type: 12 lead EKG - Medication Orders Current Medication Orders: Discontinued Medications Ondansetron HCl (Zofran Inj) 4 mg IVP STAT STA Stop: 10/02/18 07:47 Last Admin: 10/02/18 08:04 Dose: 4 mg IVP Administration Document 10/02/18 08:04 [facility] (Rec: 10/02/18 08:04 [id number] Charges for Administration # of IVP Administrations 1 - Scribe Statement The provider has reviewed the documentation as recorded by the Veronica jenkins with [facility]. All medical record entries made by the Krissibmarciano were at my direction and personally dictated by me. I have reviewed the chart and agree that the record accurately reflects my personal performance of the history, physical exam, medical decision making, and the department course for this patient. I have also personally directed, reviewed, and agree with the discharge instructions and disposition. Disposition/Present on Arrival - Present on Arrival Any Indicators Present on Arrival: No History of DVT/PE: No History of Uncontrolled Diabetes: No Urinary Catheter: No History of Decub. Ulcer: No History Surgical Site Infection Following: None - Disposition Have Diagnosis and Disposition been Completed?: Yes Diagnosis: Alcohol intoxication Disposition: HOME/ ROUTINE Disposition Time: 09:57 Patient Plan: Discharge Condition: STABLE Discharge Instructions (ExitCare): Alcohol Abuse and Alcoholism (DC) Additional Instructions: seek help for you alcohol abuse. Referrals: Joshua Leslie MD [Primary Care Provider] - Follow up with primary Forms: [employer] (Lao)
--- NOTE | 2018-10-02 08:52 | CT ---
Date of service: 10/02/2018 PROCEDURE: CT Abdomen and Pelvis without intravenous contrast HISTORY: epigastric pain, s/p PEG COMPARISON: 08/07/2018 TECHNIQUE: Without contrast.. Contrast dose: 0 Radiation dose: Total exam DLP = 251.5 mGy-cm. This CT exam was performed using one or more of the following dose reduction techniques: Automated exposure control, adjustment of the mA and/or kV according to patient size, and/or use of iterative reconstruction technique. FINDINGS: LOWER THORAX: Unremarkable. LIVER: Unremarkable. No gross lesion or ductal dilatation. GALLBLADDER AND BILE DUCTS: Unremarkable. PANCREAS: Unremarkable. No gross lesion or ductal dilatation. SPLEEN: Unremarkable. ADRENALS: Unremarkable. No mass. KIDNEYS AND URETERS: Unremarkable. No hydronephrosis. No solid mass. VASCULATURE: Unremarkable. No aortic aneurysm. There is atherosclerotic calcification of the abdominal aorta. BOWEL: No bowel obstruction. Percutaneous gastrostomy tube noted. No abnormal bowel loops. APPENDIX: Unremarkable. Normal appendix. PERITONEUM: Unremarkable. No free fluid. No free air. LYMPH NODES: Unremarkable. No enlarged lymph nodes. BLADDER: Unremarkable. REPRODUCTIVE: Unremarkable prostate BONES: No acute fracture. OTHER FINDINGS: None. IMPRESSION: Percutaneous gastrostomy tube noted. Otherwise unremarkable examination.
[2018-10-02 09:05] LABS: BASO # 0.07 K/mm3 (0.0-2.0); BASO % 1.4 % (0.0-3.0); EOS # 0.2 (0.0-0.7); EOS % 3.7 % (1.5-5.0); HEMOGLOBIN 11.7 g/dL (14.0-18.0); LYMPH # 2.1 (1.2-3.4); LYMPH % 43.8 % (22.0-35.0); MEAN CELL VOLUME 79.1 fl (80.0-105.0); MEAN CORPUSCULAR HEMOGLOBIN 26.1 pg (25.0-35.0); MEAN PLATELET VOLUME 9.4 fl (7.0-11.0); MONO # 0.3 (0.1-0.6); MONO % 5.2 % (1.0-6.0); RBC 4.49 10^6/uL (3.5-6.1); RED CELL DISTRIBUTION WIDTH 16.7 % (11.5-14.5); WHITE BLOOD COUNT 4.8 10^3/uL (4.5-11.0)
[2018-10-02 09:46] LABS: ALT/SGPT 21 U/L (7-56); AST/SGOT 21 U/L (17-59); BLOOD UREA NITROGEN 8 mg/dL (7-21); CALCIUM 9.5 mg/dL (8.4-10.5); GFR NON-AFRICAN AMERICAN > 60; LIPASE 22 U/L (23-300)
[2018-10-02 10:07] VITALS: BP 112/80; PULSE 78; O2SAT 99
--- NOTE | 2018-10-02 16:12 | CARD ---
APPROVED REPORT Date of service: 10/02/2018 EKG Measurement Heart [id number] <Conclusion> Normal sinus rhythm Normal ECG
== END 2018-10-02 10:09 | disposition home or self-care (01) ==
LOC: ED 06:53
DX: F10.129 Alcohol abuse with intoxication, unspecified (principal); Y90.6 Blood alcohol level of 120-199 mg/100 ml; E11.9 Type 2 diabetes mellitus without complications; Z93.1 Gastrostomy status
CPT/HCPCS: 74176; 80053; 80320; 83690; 83735; 85025; 93005; 96374; 99283; J2405